=== PATIENT | male | born 1995 | race Two or more races ===

== ENCOUNTER 2020-07-30 18:23 | Emergency (ER) | payer MEDICARE, MEDICAID, SELFPAY ==
--- NOTE | 2020-07-30 18:31 | XR_ITS ---
EXAMINATIONS: WRIST 3 VIEWS, RIGHT AND HAND 3 VIEWS, RIGHT CLINICAL INFORMATION: Pain. Punched wall. COMPARISON: None. TECHNIQUE: AP, lateral, oblique views of the right wrist are provided. AP, lateral, oblique views of the right hand were obtained. FINDINGS: Best identified on the lateral view, there is a curvilinear focus of ossification with overlying mild soft tissue swelling. There is also suspicion of hazy ossification between the bases of the third and fourth metacarpal bases on the oblique view. XR/XR hand wrist RT IMPRESSION: Curvilinear focus of ossification with mild overlying soft tissue swelling likely goodwill representative of a minimally displaced fracture to the base of the fourth, or less likely, third, metacarpal.
[2020-07-30 18:33] VITALS: BP 139/71; BP 150/85; PULSE 120; PULSE 77; RESP 16; TEMP 37.4; O2SAT 97; O2SAT 98; BMI 22.6
[2020-07-30] MEDS: oxyCODONE HCl Immed Release 5 MG TABLET PO (18:56)
--- NOTE | 2020-07-30 19:22 | ED_ITS ---
HPI - Extremity Problem General Chief complaint: Extremity Injury, Upper Stated complaint: R HAND DEFORMITY S/P PUNCHING A WALL Time Seen by Provider: 07/30/20 18:31 Source: patient Mode of arrival: EMS Limitations: no limitations History of Present Illness HPI Narrative: patient presents to the ED for right hand pain. Patient was angry and he punched the wall. Patient denies any other trauma or complaints. MD Complaint: extremity pain Related Data Previous Rx's Medication Instructions Recorded oxycodone-acetaminophen [Percocet] 1 tab PO TID PRN #9 tab 07/30/20 Allergies Allergy/AdvReac Type Severity Reaction Status Date / Time cefaclor [From CECLOR] Allergy Unknown RASH Verified 07/30/20 18:49 penicillin Allergy Unknown Unknown Uncoded 07/30/20 18:49 Review of Systems Review of Systems: Yes all other systems are reviewed and are negative Constitutional: Constitutional: Reports as per HPI, Reports no additional constitutional complaints, Denies anorexia, Denies body ache(s), Denies chills, Denies headache(s) and Denies increased appetite Eyes: Eyes: Reports as per HPI and Reports no additional eye complaints ENT: Reports system reviewed and no additional complaints, except as documented, Reports as per HPI and Denies headache(s) Cardiovascular: Cardiovascular: Reports as per HPI and Reports no additional cardiovascular complaints Respiratory: Respiratory: Reports as per HPI and Reports no additional respiratory complaints Gastrointestinal: Gastrointestinal: Reports as per HPI and Reports no additional gastrointestinal complaints Genitourinary: Genitourinary: Reports no additional male genitourinary complaints and Reports as per HPI Musculoskeletal: Musculoskeletal: Reports no additional musculoskeletal complaints and Reports as per HPI Comments: Right hand pain Neurologic: Reports system reviewed and no additional complaints, except as documented, Reports as per HPI and Denies headache(s) Psychiatric: Psychiatric: Reports as per HPI [facility] Past Medical History Medical History (Updated 07/30/20 @ 19:31 by STEVEN Muñoz) Schizophrenia Social History Social History Smoking Status: Never smoker Use of substances other than those prescribed or required for medical reasons: No Advance Directives: No Advance Directives Information Provided: No Physical Exam Vital Signs: Vital Signs: Vital Signs Temp Pulse Resp BP Pulse Ox 07/30/20 18:33 99.4 F 77 16 139/71 97 Body Mass Index 22.6 Const: General: cooperative, healthy appearing, comfortable, no acute distress, well developed, alert and awake Orientation/consciousness: patient oriented x3 HENMT: Head: Yes normal to inspection, Yes No palpable skull fracture present, Yes atraumatic, No abrasion, No Garcia's sign, No contusion, No hematoma, No laceration, No occipital foramen tenderness, No palpable skull fracture, No raccoon eyes, No scalp lesion, No scalp tenderness, No Temporal artery tenderness present and No periorbital ecchymosis Eyes: General: appearance normal, both eyes and all related structures Visual Caballero: normal visual caballero by confrontation Neck: Neck: Yes normal visual inspection, Yes full ROM, Yes no lymphadenopathy, Yes no meningeal signs and No tender Chest: Chest palpation & inspection: normal inspection of the chest, normal palpation of entire chest wall and no localized rib tenderness Resp: Effort & Inspection: normal respiratory effort and able to speak in complete sentences Cardio: Jugular venous distension: no JVD Heart sounds: S1 normal heart sound present and S2 normal heart sound present GI: Inspection: Yes normal to inspection and No abdominal wall ecchymosis Palpation (GI): Soft to palpation, not firm, nontender, no guarding and not rigid Percussion: Yes normal to percussion : General: No CVA tenderness and Yes no CVA tenderness Back/Spine/Pelvis: Back: no CVA tenderness, No CVA tenderness and No back tenderness Skin: General skin exam: no rashes or lesions noted Neuro: General: patient oriented x3, gait normal, no meningeal signs and CN's II-XI intact bilaterally Cranial nerves: Yes CN's II-XII intact bilaterally Extrem: Other: right hand positive for swelling on dorsal aspect with slight deformity near 4th metacarpal. Capillary refills intact of all fingers. Radial pulses intact. Left upper extremity is normal. Lower extremities negative for any trauma and is normal Psych: Appearance: grossly normal, well kempt and not disheveled Course Course Course Narrative: patient will be given oxycodone for pain. Patient is sent for x-ray of right upper extremity. Reevaluation(s) Reevaluation #1: Right hand x-ray shows minimally displaced 3rd or 4th metacarpal fracture. Patient will be placed a wide ulnar gutter splint. Time: 19:30 Reevaluation #2: Patient placed in splint by nurse. MDM - Extremity (Nontraumatic) MDM Narrative Medical decision making narrative: hand metacarpal fracture. Discharge Plan Discharge Clinical Impression: Fracture of hand Patient Disposition: Home, Self-Care Instructions: Hand Fracture (ED), Boxer Fracture (ED) Additional Instructions: return to ED for worsening pain, increased swelling, bluish discoloration of fingers, numbness /tingling, chest pain, redness, shortness of breath, or any other concerning symptoms. Prescriptions: New oxycodone-acetaminophen [Percocet] 5-325 mg tablet 1 tab PO TID PRN (Reason: pain) Qty: 9 RF: 0 Referrals: Sujatha Napier MD [Physician] - 2 days ( right 4th metacarpal fracture.) Interventions: ED Discharge Assessment Last Done: 07/30/20 20:21 Print Language: Guyanese
== END 2020-07-30 21:05 | disposition home or self-care (01) ==
PROVIDERS: Emergency Provider Emergency Medicine
DX: S62.302A Unspecified fracture of third metacarpal bone, right hand, initial encounter for closed fracture (principal); S62.304A Unspecified fracture of fourth metacarpal bone, right hand, initial encounter for closed fracture; M79.641 Pain in right hand; Y29.XXXA Contact with blunt object, undetermined intent, initial encounter; Y93.9 Activity, unspecified; Y92.9 Unspecified place or not applicable; Y99.9 Unspecified external cause status
CPT/HCPCS: 29125; 73110; 73130; 99283

== ENCOUNTER 2020-07-31 05:59 | Emergency (ER) | payer MEDICARE, MEDICAID, SELFPAY ==
[2020-07-31 06:07] VITALS: BP 140/72; PULSE 62; RESP 18; TEMP 36.7; O2SAT 99; BMI 22.5
--- NOTE | 2020-07-31 06:52 | ED.UPPEXIN ---
HPI - Extremity Injury (Upper) General Chief Complaint: General Medical Stated Complaint: Arm pain Time Seen by Provider: 07/31/20 06:33 Source: patient and old records reviewed Mode of arrival: ambulatory Limitations: no limitations History of Present Illness HPI narrative: This is a 25-year-old male who presents with persistent right hand pain and self endorses that he did not crop picker his pain medication from the pharmacy yesterday due to unclear obstacle. He denies any numbness or tingling into the fingers and states he has not re-injured the hand in any way. Related Data Previous Rx's Medication Instructions Recorded oxycodone-acetaminophen [Percocet] 1 tab PO TID PRN #9 tab 07/30/20 Allergies Allergy/AdvReac Type Severity Reaction Status Date / Time cefaclor [From CECLOR] Allergy Unknown RASH Verified 07/31/20 06:08 penicillin Allergy Unknown Unknown Uncoded 07/31/20 06:07 Review of Systems Review of Systems: Pertinent positives and negatives as stated in HPI 10 point review of systems is otherwise negative. [facility] Past Medical History Source: nursing notes reviewed Medical History Schizophrenia Social History Social History Smoking Status: Never smoker Advance Directives: No Advance Directives Information Provided: No Physical Exam Vital Signs: Vital Signs: Vital Signs Temp Pulse Resp Pulse Ox 07/31/20 06:07 98.0 F 62 18 99 Body Mass Index 22.5 VITAL SIGNS: Reviewed. GENERAL: Well developed, well nourished, in no acute distress. HEAD: Normocephalic/atraumatic, EYES: PERRLA, EOMI intact without pain, no nystagmus/pallor/icterus noted EARS: Ext canals without abnormality, TMs non-bulging and non-erythematous NOSE: Nares patent bilateral OROPHARYNX: no oral lesions noted, posterior pharynx clear and non-erythematous without noted tonsillar enlargement/erythema/exudates NECK: Supple, no adenopathy LUNGS: Normal breath sounds. No adventitious sounds or accessory muscle use. SpO2<99> CARDIOVASCULAR: Regular rate and rhythm without noted murmurs, no JVD or lower extremity edema. ABDOMEN: Soft, non-tender, non-distended with bowel sounds. No rigidity. No guarding. No palpable masses or hernias noted MUSCULOSKELETAL: No tenderness, deformities, or effusions noted on gross inspection. EXTREMITIES: No cyanosis, clubbing or edema; RIGHT HAND: Splint remains in good placement, capillary refill is less than 3 seconds, fingers are warm, patient able to wiggle all fingers on right hand. SKIN: Inspection of the skin reveals no rashes, ulcerations, jaundice, pallor, or petechiae. NEUROLOGIC: Alert and oriented x 4. Strength and sensation to light touch were grossly intact x 4. Course Course Course Narrative: This is a 25-year-old male with history and clinical presentation consistent with boxer's fracture and inadequate pain control due to inability to access pain medication prescribed. Patient was reviewed provided with combination analgesics here in the emergency department and then discharged in stable condition with instructions to pick his prescription up from the pharmacy and call the orthopedic office today to set up a follow-up appointment for his fracture. He was provided with the contact information for the orthopedic office. Discharge Plan Discharge Clinical Impression: Pain Patient Disposition: Home, Self-Care Instructions: Boxer Fracture (ED) Additional Instructions: You have been provided with contact information for the orthopedic office and you should call them this morning to set up an appointment for further evaluation of your hand fracture. Please go to the pharmacy and crop picker your pain medication prescription. The patient and/or family acknowledge understanding of results (as applicable), diagnosis, treatment plan, need for follow up, and symptoms that should prompt a return to the emergency room. Prescriptions: No Action oxycodone-acetaminophen [Percocet] 5-325 mg tablet 1 tab PO TID PRN (Reason: pain) Qty: 9 RF: 0 Referrals: Physician,Unknown [Primary Care Provider] - 2 days ( Hand fracture)
[2020-07-31] MEDS: Acetaminophen 325 MG TABLET 975 MG PO (06:55)
[2020-07-31] MEDS: Ketorolac Tromethamine 15 MG/ML VIAL IM (06:55)
--- NOTE | 2020-07-31 07:00 | PC.NURSE ---
received report from kelechi abbasi
== END 2020-07-31 07:07 | disposition home or self-care (01) ==
PROVIDERS: Emergency Provider Student in an Organized Health Care Education/Training Program
DX: M79.601 Pain in right arm (principal); R20.0 Anesthesia of skin
CPT/HCPCS: 96372; 99283; 99284; J1885

== ENCOUNTER 2020-08-05 11:01 | Emergency (ER) | payer MEDICARE, MEDICAID, SELFPAY ==
--- NOTE | 2020-08-05 11:08 | ED.EXTPRO ---
HPI - Extremity Problem General Stated complaint: R HAND PAIN, SEEN LAST WEEK,WANTS RECHECK Time Seen by Provider: 08/05/20 11:07 Source: patient, EMS and old records reviewed Mode of arrival: EMS Limitations: no limitations Related Data Previous Rx's Medication Instructions Recorded oxycodone-acetaminophen [Percocet] 1 tab PO TID PRN #9 tab 07/30/20 Allergies Allergy/AdvReac Type Severity Reaction Status Date / Time cefaclor [From CECLOR] Allergy Unknown RASH Verified 07/31/20 06:08 penicillin Allergy Unknown Unknown Uncoded 07/31/20 06:07 [facility] Past Medical History Medical History Schizophrenia Social History Social History Smoking Status: Never smoker Discharge Plan Discharge Prescriptions: No Action oxycodone-acetaminophen [Percocet] 5-325 mg tablet 1 tab PO TID PRN (Reason: pain) Qty: 9 RF: 0
[2020-08-05 11:14] VITALS: BP 119/61; PULSE 62; RESP 16; TEMP 37.1; O2SAT 98; BMI 21.7
--- NOTE | 2020-08-05 11:21 | ED.EXTPRO ---
HPI - Extremity Problem General Chief complaint: Extremity Injury, Upper Stated complaint: R HAND PAIN, SEEN LAST WEEK,WANTS RECHECK Time Seen by Provider: 08/05/20 11:07 Source: EMS Mode of arrival: EMS Limitations: no limitations History of Present Illness HPI Narrative: 25-year-old male from shelter who apparently suffered injury to his right hand from punching a wall on the 30 of July (6 days ago) he was seen here for the hand injury subsequently diagnosed with minimally displaced fracture of the 3rd/ 4th metacarpal placed in a ulnar gutter splint which fell off. He re-presented today for recent splinting. He denies any new injury. No rash, open skin area. MD Complaint: extremity pain Location: right Related Data Previous Rx's Medication Instructions Recorded oxycodone-acetaminophen [Percocet] 1 tab PO TID PRN #9 tab 07/30/20 Allergies Allergy/AdvReac Type Severity Reaction Status Date / Time cefaclor [From CECLOR] Allergy Unknown RASH Verified 08/05/20 11:19 penicillin Allergy Unknown Unknown Uncoded 08/05/20 11:19 Review of Systems Review of Systems: Constitutional: No Weight loss, No Fever, No Chills, No Night Sweats, No Fatigue, No Malaise ENT/Mouth: No Hearing loss, No Ear Triston Cardiovascular: No Chest Pain, No SOB Respiratory: No Cough, No Sputum Musculoskeletal: No joint pain, No Myalgias, No Joint Swelling Skin: No Skin Lesions, No rash Neuro: No Weakness, No Numbness Psych: No Anxiety/Panic Heme/Lymph: No Bruising, No Bleeding,No Lymphadenopathy Endocrine: No Polyuria, No Polydipsia, No Temperature Intolerance Yes all other systems are reviewed and are negative [facility] Past Medical History Attestation statement: The following information was validated with the patient. Medical History Schizophrenia Social History Social History Smoking Status: Never smoker Physical Exam Vital Signs: Vital Signs: Last Vital Signs Temp 98.7 F 08/05/20 11:14 Pulse 62 08/05/20 11:14 Resp 16 08/05/20 11:14 BP 119/61 08/05/20 11:14 Pulse Ox 98 08/05/20 11:14 Body Mass Index 21.7 Reviewed Const: General: cooperative and healthy appearing; No acute distress or intoxicated appearing Nutritional Appearance: average body habitus Orientation/consciousness: patient oriented x3 HENMT: Head: Yes normal to inspection Ears: hearing grossly normal bilaterally Eyes: General: appearance normal, both eyes and all related structures Visual Masterson: normal visual masterson by confrontation Chest: Chest palpation & inspection: normal inspection of the chest Resp: Effort & Inspection: normal respiratory effort Skin: General skin exam: no rashes or lesions noted Neuro: General: patient oriented x3 Extrem: Other: Right upper extremity slight ecchymosis over the dorsum of the right hand just proximal to the 3rd 4th webbing. No obvious deformity, erythema or open area. Neurovascularly intact. Full range of motion the digits. Cap refill less than 2 seconds. General: Yes normal to inspection Course Course Course Narrative: Placed in ulnar gutter splint advised for orthopedic follow-up as previously discussed. Discharge Plan Discharge Clinical Impression: Fracture of hand, Knowledge deficit on cast home care, Encounter for cast care Patient Disposition: Home, Self-Care Instructions: Hand Fracture (ED), Splint Care (ED) Additional Instructions: Please leave the splint on and follow up with Orthopedic Team this upcoming week call for appointment Ice Elevate Tylenol or ibuprofen for pain or discomfort Return if any concerns or worsening symptoms Thank you Prescriptions: No Action oxycodone-acetaminophen [Percocet] 5-325 mg tablet 1 tab PO TID PRN (Reason: pain) Qty: 9 RF: 0 Referrals: James Appiah MD [Physician] - 5 days
== END 2020-08-05 11:58 | disposition home or self-care (01) ==
LOC: HO.ED 11:41
PROVIDERS: Emergency Provider Emergency Medicine
DX: S62.91XA Unspecified fracture of right hand, initial encounter for closed fracture (principal); M79.641 Pain in right hand; X79.XXXA Intentional self-harm by blunt object, initial encounter; Y93.9 Activity, unspecified; Y92.9 Unspecified place or not applicable; Y99.9 Unspecified external cause status; Z79.899 Other long term (current) drug therapy
CPT/HCPCS: 29125; 99283

== ENCOUNTER 2020-08-12 09:12 | Emergency (ER) | payer MEDICARE, MEDICAID, SELFPAY ==
[2020-08-12 09:20] VITALS: BP 117/67; PULSE 74; RESP 16; TEMP 36.1; O2SAT 100; BMI 21.9
--- NOTE | 2020-08-12 09:49 | XR_ITS ---
EXAMINATION: XR HAND, RIGHT CLINICAL INFORMATION: Recent fracture, no trauma. COMPARISON: 07/30/2020 TECHNIQUE: PA, lateral, and oblique views of the right hand. FINDINGS: Mildly displaced fracture of the base third or fourth metacarpal unchanged. No new fractures. No dislocation. XR/XR hand RT min 3V IMPRESSION: Exam essentially unchanged, mildly displaced chip fractures at the base of the third or fourth metacarpals.
--- NOTE | 2020-08-12 09:50 | ED.GENADULT ---
HPI - General Adult General Chief complaint: General Medical Stated complaint: R HAND PAIN,SPLINT FELL OFF PREVIOUS INJURY Time Seen by Provider: 08/12/20 09:26 Source: patient and EMS Mode of arrival: EMS Limitations: no limitations History of Present Illness HPI narrative: 25 y/o male with recent 4th metacarpal fracture on 07/30 presenting with right hand pain after his splint fell off 3 times. He states [facility] [place] and they were supposed to make him an Orthopedics appointment for last week because he thinkgs he needs surgery, however there was an error in scheduling and he never had the appointment. He states the splint kept falling off and the pain in his hand is worsening. He almost fell twice but caught himself with his hand. He thinks the fracture might be worse. He denies numbness, tingling. complaint: right hand pain Onset (ago): day(s) (13) Location: upper extremity Radiation: non-radiation Severity: moderate Severity scale (1-10): 7 Quality: aching Pain Consistency: intermittent Relieving factors: immobilization and medication Exacerbating factors: movement Associated symptoms: denies other symptoms Treatments prior to arrival: none Related Data Previous Rx's Medication Instructions Recorded oxycodone-acetaminophen [Percocet] 1 tab PO TID PRN #9 tab 07/30/20 hydrocodone-acetaminophen [[place]] 1 tab PO Q8H PRN #8 tab 08/12/20 ibuprofen 600 mg PO Q8H PRN #20 tab 08/12/20 Allergies Allergy/AdvReac Type Severity Reaction Status Date / Time cefaclor [From CECLOR] Allergy Unknown RASH Verified 08/05/20 11:19 penicillin Allergy Unknown Unknown Uncoded 08/05/20 11:19 Review of Systems Review of Systems: Constitutional: No Fever, No Chills Cardiovascular: No Chest Pain, No SOB Respiratory: No Cough, No Sputum Musculoskeletal: + joint pain, No Myalgias Skin: No Skin Lesions, No rash Neuro: No Weakness, No Numbness Psych: No Anxiety/Panic, No Depression Heme/Lymph: + Bruising, No Lymphadenopathy PMFSH Past Medical History Attestation statement: The following information was validated with the patient. Medical History Schizophrenia Social History Social History Smoking Status: Never smoker Advance Directives: No Advance Directives Information Provided: Yes Physical Exam Vital Signs: Vital Signs: Last Vital Signs Temp 97 F 08/12/20 09:20 Pulse 74 08/12/20 09:20 Resp 16 08/12/20 09:20 BP 117/67 08/12/20 09:20 Pulse Ox 100 08/12/20 09:20 Body Mass Index 21.9 Appearance: Alert. No acute distress. HEENT: normal inspection Respiratory: No respiratory distress. Skin: Skin warm and dry. Normal skin color. Normal skin turgor. No rashes. Extremities: right hand with tenderness and swelling over 4th metacarpal on volar side. full ROM of wrist and fingers with mild digital sales planner weakness. bruising on the hand and forearm Neuro: Oriented X 3. No motor deficit. No sensory deficit. Course Course Course Narrative: 25 y/o with recent hand fracture presenting with hand pain, mild trauma. concern for further displacement of fracture given he has not been wearing his splint. Will get new X-rays and resplint. Reevaluation(s) Reevaluation #1: XR is unchanged. New splint applied with adequdate positioning. NV intact after placement. Patient counseled to wear his splint until followed up with Ortho. He agrees. Stable for discharge. Critical Care Time Critical Care Time Critical Care Time: No Discharge Plan Discharge Clinical Impression: Fracture of metacarpal Qualifiers: Encounter type: subsequent encounter Metacarpal bone: fourth Fracture type: closed Metacarpal location: base Fracture alignment: displaced Laterality: right Fracture healing: with routine healing Qualified Code(s): S62.314D - Displaced fracture of base of fourth metacarpal bone, right hand, subsequent encounter for fracture with routine healing Patient Disposition: Home, Self-Care Instructions: Hand Fracture (ED) Additional Instructions: Your x-ray today was unchanged. Continue to wear the new splint that was applied to your hand until you are seen by Orthopedics. Do not take it off. Do not get it wet. Call the Orthopedic doctor tomorrow morning to arrange an appointment. Elevate your hand to help with discomfort. Limit use of your right hand. If you have new or worsening pain, numbness, tingling or loss of function come back to the ER for further evaluation. Prescriptions: New hydrocodone-acetaminophen [[place]] 5-325 mg tablet 1 tab PO Q8H PRN (Reason: pain) Qty: 8 RF: 0 ibuprofen 600 mg tablet 600 mg PO Q8H PRN (Reason: pain) Qty: 20 RF: 0 No Action oxycodone-acetaminophen [Percocet] 5-325 mg tablet 1 tab PO TID PRN (Reason: pain) Qty: 9 RF: 0 Referrals: James Appiah MD [Physician] - 1 day Interventions: ED Discharge Assessment Last Done: 08/12/20 10:49
== END 2020-08-12 11:07 | disposition home or self-care (01) ==
PROVIDERS: Emergency Provider Emergency Medicine
DX: S62.314A Displaced fracture of base of fourth metacarpal bone, right hand, initial encounter for closed fracture (principal); M79.641 Pain in right hand; W18.30XA Fall on same level, unspecified, initial encounter; Y93.9 Activity, unspecified; Y92.9 Unspecified place or not applicable; Y99.9 Unspecified external cause status
CPT/HCPCS: 29125; 73130; 99283

== ENCOUNTER 2020-08-13 11:23 | Outpatient (REF) | payer MEDICARE, MEDICAID, SELFPAY ==
--- NOTE | 2020-08-13 11:24 | XR_ITS ---
EXAMINATION: XR HAND, RIGHT CLINICAL INFORMATION: Pain in right hand COMPARISON: 08/12/2020 and 07/30/2020 TECHNIQUE: PA, lateral, and oblique views of the right hand. FINDINGS: Fragmented appearance at the base of the third and fourth metacarpals is again noted on the oblique view. Alignment is unchanged from prior, with possible dorsal subluxation of the metacarpal bases in relation to the carpal bones. Remaining joint spaces are maintained. XR/XR hand RT min 3V IMPRESSION: Fragmented appearance at the base of the third/fourth metacarpals again noted with possible dorsal subluxation of the metacarpal bases in relation to the carpal bones. Appearance is unchanged from yesterday's study.
== END 2020-08-13 11:24 | disposition home or self-care (01) ==
LOC: HO.HOSX 11:23
PROVIDERS: Visit Provider Orthopaedic Surgery
DX: S63.054A Dislocation of other carpometacarpal joint of right hand, initial encounter (principal); S62.141A Displaced fracture of body of hamate [unciform] bone, right wrist, initial encounter for closed fracture; S62.314A Displaced fracture of base of fourth metacarpal bone, right hand, initial encounter for closed fracture; F20.9 Schizophrenia, unspecified; W22.8XXA Striking against or struck by other objects, initial encounter; Y93.9 Activity, unspecified; Y92.9 Unspecified place or not applicable; Y99.9 Unspecified external cause status
CPT/HCPCS: 73130; 99202

== ENCOUNTER 2020-08-14 11:40 | Day surgery (SDC) | payer MEDICARE, MEDICAID, SELFPAY ==
--- NOTE | 2020-08-14 11:47 | P.CONAN_ITS ---
[facility] Past Medical History Medical History (Updated 08/14/20 @ 13:03 by Maite Plaza RN) Schizophrenia Social History Social History Smoking Status: Never smoker Use of substances other than those prescribed or required for medical reasons: Yes Substance Use Frequency: Daily Advance Directives: No Advance Directives Information Provided: No Current occupation: [employer] Meds Allergies Allergy/AdvReac Type Severity Reaction Status Date / Time cefaclor [From CECLOR] Allergy Unknown RASH Verified 08/14/20 11:58 penicillin Allergy Unknown Unknown Uncoded 08/05/20 11:19 Exam Exam Date and Time: August 14, 2020 1147 Airway Mallampati Class: III TM Dist: >3cm Neck ROM: Full Loose/Missing/Broken Teeth: No Heart: rrr Lungs: nl Other: ao Assessment and Plan Assessment Anesthesia Assessment: Anesthesia Plan Discussed and Chart Reviewed Final Anesthetic Review NPO: Yes ASA Class: I Final Preanesthetic Review: No Changes in Pt Med Stat, Meds/Allgs Chart Reviewed, Consent Obtained/Reviewed and Anes Risks/Benef Reviewed Patient Risk: Low Procedure Risk: Low Anesthetic Plan Anesthetic Plan: GA and Regional Block Disposition: Standard PACU
[2020-08-14 11:58] VITALS: BP 121/68; PULSE 69; RESP 16; TEMP 37.3; O2SAT 99; BMI 23.3
[2020-08-14] MEDS: Lactated Ringers 1,000 ML 50 ML IVCONT (12:25)
[2020-08-14] MEDS: ceFAZolin Sodium/Dextrose,Iso 2 GM/50 ML PIGGYBACK IV (13:08)
[2020-08-14] MEDS: ondansetron HCL 4 MG/2 ML VIAL IVPUSH (13:16)
--- NOTE | 2020-08-14 15:24 | W.PM.OPN ---
Operative Note Operative Note Date of Service: 08/14/20 Narrative: Operative Note Narrative: Preop diagnosis: 1. Right 4th CMC fracture dislocation 2. Right 5th CMC fracture dislocation Postop diagnosis: Same Procedure: 1. Right 4th CMC fracture dislocation open reduction internal fixation 2. Left 5th CMC fracture dislocation open reduction internal fixation Surgeon: Sujatha Napier MD Anesthesia: Mac plus regional block Findings: Dorsal dislocations of the 4th and 5th CMC joints of the right hand Implants: 0.062 K-wires x3 Tourniquet time: 73 minutes EBL: 5.0 ml Specimen: None Drains: None Complications: None Disposition: Brought to the recovery room in stable condition Plan: Follow-up in about 10 days for wound check, suture removal and placement in a short-arm cast Anticipate K-wire removal not sooner than 6 weeks postoperatively. Note patient has schizophrenia, and may require close follow-up for pin site wound check, or to assess condition of cast. Patient lives in a correction with a case resolution specialist Indications: The patient is a 25 year old man with schizophrenia who lives in a correction punched a wall approximately 3-4 weeks ago sustaining right 4th and 5th CMC joint dorsal fracture dislocations. He was 1st seen in clinic 2 days ago. . The risks and benefits of operative treatment, including but not limited to risk of damage to blood vessels, nerves, tendons, infection, recurrence, persistent pain or numbness, incomplete resolution of preoperative symptoms, or need for further surgery were discussed with the patient and they wished to proceed with surgery. Procedure: Once consent was obtained patient was brought back to the operating suite and placed in the operating table in a supine position. A regional block was performed by the anesthesia team. Perioperative antibiotics and anesthesia was administered by the anesthesia team. A tourniquet was applied to the proximal aspect of the right upper extremity and the limb was prepped and draped in a standard surgical fashion. A gentle closed reduction was attempted, and the FluoroScan was utilized to facilitate and assess our CMC fracture dislocation reduction and placement of all implants. We were unable to reduce the 4th and 5th CMC joints closed. Thus the decision was made to proceed with open reduction internal fixation. The limb was elevated and exsanguinated with Esmarch bandage and the tourniquet inflated to 250 mm of mercury for a total tourniquet time of 73 minutes. A 3 cm longitudinal incision was made centered over the dorsal aspect of the hand at the interval between the 4th and 5th CMC joints. Incision was made through the skin the subcutaneous tissues using a 15. Blade. Careful dissection was then made down to the level of the 4th and 5th CMC joints using tenotomy iris scissors. The 4th and 5th CMC joints were noted to be dorsally dislocated and initially not particularly mobile. The capsuloligamentous tissue about the dorsal aspect of the 4th and 5th CMC joint was opened 1st transversely and then longitudinally between the 3rd and 4th metacarpal bases. I was then able to remove a small amount of scar tissue and organized hematoma from the 4th CMC joint, and better mobilize the bases of the 4th and 5th metacarpals.. I was then able to perform an open reduction of the 4th and 5th CMC joints. I 1st attempted to secure reduction with a longitudinal K-wire through the 4th metacarpal shaft, but found this to be unsatisfactory and remove the K-wire. I then placed a K-wire obliquely through the ulnar proximal aspect of the 5th metacarpal. This was passed across the base of the 4th metacarpal and into the hamate and the capitate. A 2nd 0.062 K-wire was passed transversely through the base of the 5th metacarpal, the 4th metacarpal and into the base of the 3rd metacarpal. I then added a 3rd 0.062 K-wire obliquely and just distal to the 1st 0.062 K-wire. It passed through the proximal aspect of the 5th metacarpal, 4th metacarpal 3rd metacarpal and into the trapezoid. I was satisfied with our construct both on intraoperative exam, and through fluoroscopic images. Final fluoroscopic images were then obtained. The pins were bent and cut short had pin caps applied. This point the wound was irrigated with normal saline. Dorsal capsuloligamentous tissue was reapproximated using some 4-0 Vicryl suture material. At this point the tourniquet was deflated and hemostasis obtained with a brief period of local pressure and bipolar electrocautery. The wound was again copiously irrigated with normal saline. The skin edges were reapproximated with 5-0 nylon suture. The wound was infiltrated with some 1% lidocaine with epinephrine for postop pain control and a sterile dressing and a volar splint was applied. A splint was reinforced some 1 and some tape and 2 in [place] to discourage removal of the splint by our patient. The patient appears to have tolerated the procedure well and with no complications. All digits were well vascularized conclusion of the case.
[2020-08-14 15:25] VITALS: BP 135/81; PULSE 86; RESP 16; TEMP 36.6; O2SAT 96
[2020-08-14 15:30] VITALS: BP 151/76; PULSE 71; RESP 16; O2SAT 96
[2020-08-14 15:35] VITALS: BP 133/92; PULSE 65; RESP 16; O2SAT 94
[2020-08-14 15:40] VITALS: BP 156/95; PULSE 69; RESP 16; O2SAT 94
--- NOTE | 2020-08-14 15:51 | FL_ITS ---
EXAMINATION: XR FLUOROSCOPY WITH IMAGES CLINICAL INFORMATION: Fracture of the right fourth and fifth metacarpals COMPARISON: None. TECHNIQUE: Fluoroscopy performed by Dr. Venegas. Fluoroscopy time: 251 seconds DAP: [id number] Images: 7 FINDINGS: There is placement of 3 K wires across the third through fifth metacarpal bases and proximal carpal row. FL/FL guidance in OR IMPRESSION: Fluoroscopic guidance for wire fixation at the carpometacarpal articulation. Please refer to operative report for further information.
[2020-08-14 15:55] VITALS: BP 117/66; PULSE 68; RESP 16; TEMP 36.7; O2SAT 96
== END 2020-08-14 16:15 | disposition home or self-care (01) ==
PROVIDERS: Visit Provider Orthopaedic Surgery
PROC: (CPT 26615; principal; 2020-08-14 13:00)
DX: S62.314A Displaced fracture of base of fourth metacarpal bone, right hand, initial encounter for closed fracture (principal); S62.316A Displaced fracture of base of fifth metacarpal bone, right hand, initial encounter for closed fracture; W22.09XA Striking against other stationary object, initial encounter; W22.01XA Walked into wall, initial encounter; Y93.89 Activity, other specified; Y92.099 Unspecified place in other non-institutional residence as the place of occurrence of the external cause; Y99.8 Other external cause status; F20.9 Schizophrenia, unspecified; F12.90 Cannabis use, unspecified, uncomplicated; Z79.899 Other long term (current) drug therapy; Z88.0 Allergy status to penicillin; Z88.8 Allergy status to other drugs, medicaments and biological substances
CPT/HCPCS: 26615 ×2; J0690; J1100; J2250; J2405

== ENCOUNTER 2020-08-19 06:45 | Emergency (ER) | payer MEDICARE, MEDICAID, SELFPAY ==
[2020-08-19 06:50] VITALS: PULSE 67; RESP 16; TEMP 36.6; O2SAT 98; BMI 24.9
--- NOTE | 2020-08-19 07:45 | ED_ITS ---
HPI - Extremity Problem General Chief complaint: Extremity Injury, Upper Stated complaint: SPILLED HOT COFFEE ON CALF Time Seen by Provider: 08/19/20 07:37 Source: patient Mode of arrival: ambulatory Limitations: no limitations History of Present Illness HPI Narrative: This is a 25 years old male with the aid of ORIF procedure in the right few days ago, was placed in a splint, comes today because a drop of coffee on a splint. Complaint: other Onset (ago): hour(s) (4) Pain Consistency: constant Location: right Radiation: none Associated symptoms: denies other symptoms Related Data Previous Rx's Medication Instructions Recorded hydrocodone-acetaminophen [[place]] 1 tab PO Q8H PRN #8 tab 08/12/20 hydrocodone-acetaminophen 1 - 2 tab PO Q6H PRN #30 tab 08/14/20 Allergies Allergy/AdvReac Type Severity Reaction Status Date / Time cefaclor [From CECLOR] Allergy Unknown RASH Verified 08/14/20 11:58 penicillin Allergy Unknown Unknown Uncoded 08/05/20 11:19 Review of Systems Review of Systems: Yes all other systems are reviewed and are negative Cardiovascular: Cardiovascular: Reports no additional cardiovascular complaints Gastrointestinal: Gastrointestinal: Reports no additional gastrointestinal complaints Neurologic: Reports system reviewed and no additional complaints, except as documented PMFSH Past Medical History Attestation statement: The following information was validated with the patient. Medical History Schizophrenia Social History Social History Smoking Status: Never smoker Advance Directives: No Advance Directives Information Provided: Yes Current occupation: [employer] Physical Exam Vital Signs: Vital Signs: Last Vital Signs Temp 98 F 08/19/20 06:50 Pulse 67 08/19/20 06:50 Resp 16 08/19/20 06:50 Pulse Ox 98 08/19/20 06:50 Body Mass Index 24.9 Const: Other: Not acute distress General: cooperative, healthy appearing and comfortable Orientation/consciousness: oriented to person and oriented to place HENMT: Head: Yes normal to inspection Eyes: General: appearance normal, both eyes and all related structures Neck: Neck: Yes normal visual inspection Chest: Chest palpation & inspection: normal inspection of the chest Resp: Effort & Inspection: normal respiratory effort and able to speak in complete sentences Cardio: Rate: regular rate GI: Inspection: Yes normal to inspection Palpation (GI): Soft to palpation, nontender and no guarding Skin: General skin exam: no rashes or lesions noted Neuro: General: oriented to person and oriented to place Extrem: Other: Patient has a short arm a splint in the right forearm a through the hand Course Course Course Narrative: Actually the OCL splinting was fine and no wet, we just just changed the George bandage around the splint Discharge Plan Discharge Clinical Impression: Right hand pain Patient Disposition: Home, Self-Care Additional Instructions: Please follow-up with the orthopedist as scheduled, keep you splint dry, return to the emergency room if any problems Prescriptions: No Action hydrocodone-acetaminophen [[place]] 5-325 mg tablet 1 tab PO Q8H PRN (Reason: pain) Qty: 8 RF: 0 hydrocodone-acetaminophen 5-325 mg tablet 1 - 2 tab PO Q6H PRN (Reason: pain) Qty: 30 RF: 0 Interventions: ED Discharge Assessment Last Done: 08/19/20 07:53 Discharge Date/Time: 08/19/20 07:54
== END 2020-08-19 07:54 | disposition home or self-care (01) ==
PROVIDERS: Emergency Provider Emergency Medicine
DX: M79.641 Pain in right hand (principal); Z79.899 Other long term (current) drug therapy
CPT/HCPCS: 99283

== ENCOUNTER 2020-08-21 12:14 | Emergency (ER) | payer MEDICARE, MEDICAID, SELFPAY ==
[2020-08-21 12:33] VITALS: BP 114/86; PULSE 120; RESP 18; TEMP 36.8; O2SAT 100; BMI 22.8
--- NOTE | 2020-08-21 14:08 | XR_ITS ---
EXAMINATION: XR CHEST CLINICAL INFORMATION: Cough, shortness of breath COMPARISON: Chest radiographs 11/06/2019 TECHNIQUE: 2 views of the chest were obtained. FINDINGS: The lungs are clear. The vascularity is normal. There is no pneumothorax, pleural reaction, infiltrate, or groundglass opacity. The costophrenic sulci are well-defined. The heart is normal in size and the hilar and mediastinal contours are normal. No visible acute bony abnormality. XR/XR chest 2V IMPRESSION: Unremarkable examination.
--- NOTE | 2020-08-21 14:11 | ED_ITS ---
HPI - General Adult General Chief complaint: General Medical Stated complaint: not feeling well, recent surgery Time Seen by Provider: 08/21/20 14:02 Source: patient and EMS Mode of arrival: EMS Limitations: no limitations History of Present Illness HPI narrative: Patient tells me today he noticed a dry cough, nasal congestion and just feeling generally unwell. He denies any fevers, chills or sick contacts. No shortness of breath or chest pain. Onset (ago): day(s) Radiation: non-radiation Severity: mild Relieving factors: none Exacerbating factors: none Associated symptoms: denies other symptoms Treatments prior to arrival: none Related Data Previous Rx's Medication Instructions Recorded hydrocodone-acetaminophen [[place]] 1 tab PO Q8H PRN #8 tab 08/12/20 hydrocodone-acetaminophen 1 - 2 tab PO Q6H PRN #30 tab 08/14/20 Allergies Allergy/AdvReac Type Severity Reaction Status Date / Time cefaclor [From CECLOR] Allergy Unknown RASH Verified 08/14/20 11:58 penicillin Allergy Unknown Unknown Uncoded 08/05/20 11:19 Review of Systems Review of Systems: Yes all other systems are reviewed and are negative Constitutional: Constitutional: Reports no additional constitutional complaints, Denies body ache(s), Denies chills, Denies fever(s), Denies headache(s) and Denies weakness Eyes: Eyes: Reports no additional eye complaints and Denies change in vision ENT: Reports system reviewed and no additional complaints, except as documented, Denies dizziness, Denies headache(s), Reports nasal congestion, Denies nasal discharge and Denies neck pain Cardiovascular: Cardiovascular: Reports no additional cardiovascular complaints, Denies chest pain, Denies leg edema and Reports dyspnea Respiratory: Respiratory: Reports no additional respiratory complaints, Reports cough and Reports dyspnea Gastrointestinal: Gastrointestinal: Reports no additional gastrointestinal complaints, Denies abdominal pain, Denies diarrhea, Denies nausea and Denies vomiting Genitourinary: Genitourinary: Denies urinary incontinence Musculoskeletal: Musculoskeletal: Reports no additional musculoskeletal complaints, Denies back pain, Denies arthralgias, Denies joint swelling, Denies neck pain, Denies numbness and Denies tingling Integumentary/Breasts: Skin/Breast: Reports system reviewed and no additional complaints, except as docu and Denies rash Neurologic: Reports system reviewed and no additional complaints, except as documented, Denies Abnormal speech present, Denies dizziness, Denies headache(s), Denies numbness, Denies tingling and Denies weakness PMFSH Past Medical History Attestation statement: The following information was validated with the patient. Source: old records reviewed and nursing notes reviewed Medical History Schizophrenia Social History Social History Alcohol intake: never Smoking Status: Never smoker Use of substances other than those prescribed or required for medical reasons: Yes Substance Use Type: Marijuana Substance Use Frequency: Daily Advance Directives: No Advance Directives Information Provided: Yes Current occupation: [employer] Physical Exam Vital Signs: Vital Signs: Last Vital Signs Temp 98.3 F 08/21/20 12:33 Pulse 114 H 08/21/20 16:57 Resp 20 08/21/20 16:57 BP 134/87 08/21/20 16:57 Pulse Ox 97 08/21/20 16:57 Body Mass Index 22.8 Const: General: cooperative, healthy appearing, comfortable and no acute distress Orientation/consciousness: patient oriented x3 Limitations: no limitations HENMT: Head: Yes normal to inspection Ears: hearing grossly normal bilaterally General nose exam: Normal external nose present Face and sinus: Yes normal facial exam Mouth: Normal oral and palatal mucosa present Throat: Yes posterior oropharynx normal Eyes: General: appearance normal, both eyes and all related structures Pupils: Equal, round and reactive pupils present Neck: Neck: Yes normal visual inspection Chest: Chest palpation & inspection: normal inspection of the chest Resp: Effort & Inspection: normal respiratory effort Auscultation: clear to auscultation bilaterally Cardio: Rate: regular rate Rhythm: regular rhythm Peripheral pulses: Peripheral pulses 2+ throughout GI: Inspection: Yes normal to inspection Palpation (GI): Soft to palpation and nontender Auscultation: normal bowel sounds Back/Spine/Pelvis: Thoracic/Lumbar Spine: thoracic and lumbar spine normal to inspection Skin: General skin exam: no rashes or lesions noted Neuro: General: patient oriented x3, no focal motor deficits and normal sensation to monofilament Cranial nerves: Yes Equal, round and reactive pupils present Cognition (Neuro): normal cognition Speech: No Abnormal speech present Gait exam (Neuro): Normal gait present Motor exam (neuro): 5/5 motor strength present throughout Extrem: General: Yes normal to inspection Course Course Course Narrative: Will check imaging, respiratory panel. 1699- Imaging unremarkable. Respiratory panel pending will not return tomorrow. Patient is well appearing stable vital signs, afebrile. Reviewed worrisome signs and symptoms when to return to the emergency department. Comfortable discharge home. Medical Decision Making Imaging Data Chest x-ray: Attestation: I personally reviewed and interpreted this imaging study as follows: Radiologist's impression: EXAMINATION: XR CHEST CLINICAL INFORMATION: Cough, shortness of breath COMPARISON: Chest radiographs 11/06/2019 TECHNIQUE: 2 views of the chest were obtained. FINDINGS: The lungs are clear. The vascularity is normal. There is no pneumothorax, pleural reaction, infiltrate, or groundglass opacity. The costophrenic sulci are well-defined. The heart is normal in size and the hilar and mediastinal contours are normal. No visible acute bony abnormality. XR/XR chest 2V IMPRESSION: Unremarkable examination. Discharge Plan Discharge Clinical Impression: Viral syndrome Patient Disposition: Home, Self-Care Instructions: Viral Syndrome (ED) Additional Instructions: We have tested you today for COVID 19. Test results take 1-2 days and we will c all you with the results negative or positive. Take tylenol or motrin if able as needed for pain or fever. Stay well hydrated with fluids like water, gatorade and/or powerade. Wash hands at home. If living with others try to self isolate if possible. If unable wear a mask around others in your home and wash hands frequently. If COVID test is positive you will need to self isolate for a total of 14 days from when your symptoms started. You may return to work sooner if testing is negative and all symptoms resolved >72 hours. You should return to the emergency department for severe shortness of breath, chest pain or fever which does not respond to both tylenol and motrin at home. Prescriptions: No Action hydrocodone-acetaminophen [[place]] 5-325 mg tablet 1 tab PO Q8H PRN (Reason: pain) Qty: 8 RF: 0 hydrocodone-acetaminophen 5-325 mg tablet 1 - 2 tab PO Q6H PRN (Reason: pain) Qty: 30 RF: 0 Referrals: Physician,Unknown [Primary Care Provider] - 2 days Interventions: ED Discharge Assessment Last Done: 08/21/20 17:10 Discharge Date/Time: 08/21/20 17:11
[2020-08-21 14:22] VITALS: PULSE 88; RESP 16
[2020-08-21 15:01] LABS: Adenovirus PCR Not Detected (Not Detect.); Bordetella parapertussis PCR Not Detected (Not Detect.); Bordetella pertussis PCR Not Detected (Not Detect.); Chlamydia pneumoniae PCR Not Detected (Not Detect.); Coronavirus 229E PCR Not Detected (Not Detect.); Coronavirus HKU1 PCR Not Detected (Not Detect.); Coronavirus NL63 PCR Not Detected (Not Detect.); Coronavirus OC43 PCR Not Detected (Not Detect.); Human metapneumovirus PCR Not Detected (Not Detect.); Influenza A PCR Not Detected (Not Detect.); Influenza B PCR Not Detected (Not Detect.); Mycoplasma pneumoniae PCR Not Detected (Not Detect.); Parainfluenza 1 PCR Not Detected (Not Detect.); Parainfluenza 2 PCR Not Detected (Not Detect.); Parainfluenza 3 PCR Not Detected (Not Detect.); Parainfluenza 4 PCR Not Detected (Not Detect.); RSV PCR Not Detected (Not Detect.); SARS-CoV-2 PCR Not Detected (Not Detect.)
[2020-08-21 16:57] VITALS: BP 134/87; PULSE 114; RESP 20; O2SAT 97
[2020-08-22 08:30] LABS: Rhino/Enterovirus PCR Detected (Not Detect.)
== END 2020-08-21 17:11 | disposition home or self-care (01) ==
PROVIDERS: Nurse Practitioner Family; Emergency Provider Emergency Medicine Emergency Medical Services
DX: B34.9 Viral infection, unspecified (principal); R05 Cough; F12.90 Cannabis use, unspecified, uncomplicated; Z20.828 Contact with and (suspected) exposure to other viral communicable diseases
CPT/HCPCS: 71046; 87633; 99283; 99284

== ENCOUNTER 2020-08-24 17:38 | Emergency (ER) | payer MEDICARE, MEDICAID, SELFPAY ==
[2020-08-24 17:50] VITALS: BP 144/89; PULSE 88; RESP 16; TEMP 37.2; O2SAT 100; BMI 22.6
--- NOTE | 2020-08-24 17:55 | PC.NURSE ---
PT HAD KNIFE FALL OUT OF POCKET WHILE BEING TRANSPORTED BY EMT TOOK BY SECURITY. PT DEMANBDING PAIN MEDICATION.
--- NOTE | 2020-08-24 18:02 | XR_ITS ---
EXAMINATION: XR HAND, RIGHT CLINICAL INFORMATION: Injury/recent surgery COMPARISON: Right hand radiographs 08/13/2020 TECHNIQUE: Four views of the right hand. FINDINGS: Large amount of details obscured by the plaster cast/splint. 3 metallic pins are present extending through the carpal bones and bases of the metacarpals. Fractures are not as well-seen as on prior studies but no new fracture is identified. XR/XR hand RT min 3V IMPRESSION: Postsurgical changes. Plaster splint/cast obscures detail. No definite new fractures seen.
[2020-08-24] MEDS: Acetaminophen 325 MG TABLET 650 MG PO (18:08)
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
--- NOTE | 2020-08-24 18:54 | PC.NURSE ---
PT CAME OUT OF ROOM AND INFORMED NURSE THE TYLENOL WORK FOR PAIN AND HE WANTED TO GO HOME. PT WAS INFORM THAT SHE WILL LET THE PROVIDER KNOW.
== END 2020-08-24 18:55 | disposition home or self-care (01) ==
PROVIDERS: Emergency Provider Emergency Medicine
DX: M79.641 Pain in right hand (principal); Z79.899 Other long term (current) drug therapy; F12.90 Cannabis use, unspecified, uncomplicated
CPT/HCPCS: 73130; 99283

== ENCOUNTER 2020-08-31 21:52 | Emergency (ER) | payer MEDICARE, MEDICAID, SELFPAY ==
[2020-08-31 22:00] VITALS: BP 125/70; PULSE 96; RESP 18; TEMP 37.3; O2SAT 99; BMI 22.6
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
[2020-08-31] MEDS: Acetaminophen 325 MG TABLET 650 MG PO (23:00)
[2020-08-31 23:27] LABS: Amphetamine Screen Urine Not Detected (Not Detect); Barbiturates, Urine Not Detected (Not Detect); Benzodiazepines Screen Urine Not Detected (Not Detect); Cannabinoid Screen Urine POSITIVE (Not Detect); Cocaine Screen Urine Not Detected (Not Detect); Opiate Screen Urine Not Detected (Not Detect); Phencyclidine Screen Urine Not Detected (Not Detect)
[2020-08-31 23:28] LABS: Glucose Urine UA NEG (NEG); Leukocyte Esterase Urine NEG (NEG); Nitrite Urine NEG (NEG); Urine Blood NEG (NEG); Urine Ketones NEG (NEG); Urine Protein NEG (NEG-TRACE)
[2020-08-31 23:33] LABS: Appearance Urine CLEAR; Color Urine YELLOW
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
[2020-09-01] VITALS (8 sets, daily range): BP systolic 107–132; BP diastolic 51–57; PULSE 62–90; RESP 16–20; TEMP 36.4–36.7; O2SAT 98–100
--- NOTE | 2020-09-01 00:43 | PC.NURSE ---
Patient just got transferred from main ED, [facility] faxed/called/spoke with Delfina/confirmed receipt of referral,/no ETA at this time, will continue to monitor. Patient made aware that CT head id negative,
--- NOTE | 2020-09-01 07:29 | PC.NURSE ---
Report received from PINEDA Alcala. Pt resting, resp unlabored.
--- NOTE | 2020-09-01 09:21 | PC.NURSE ---
[facility] in to see pt
--- NOTE | 2020-09-01 10:14 | PC.NURSE ---
Pt seen by [facility], is an inpatient bed search. Pt showered, currently out on unit, appears to be responding to internal stimuli. Right arm in a cast- dry,+CMS. No concerns reported.
[2020-09-01 10:41] LABS: MANUAL DIFF FLAG NO
--- NOTE | 2020-09-01 10:54 | PC.NURSE ---
Long-Term: [phone] called re: medications. Will send med list. Staff states that pt has been off medications 6-7 months.
[2020-09-01 11:03] LABS: Alanine Aminotransferase 9 U/L (0-40); Albumin Level 4.3 g/dL (3.5-5.0); Alkaline Phosphatase 52 U/L (39-117); Anion Gap 11 (12-20); Aspartate Amino Transferase 16 U/L (5-37); Basophils Percent Auto 0.2 % (0-2); Bilirubin Direct 0.3 mg/dL (0.0-0.5); Bilirubin Total 0.8 mg/dL (0.0-1.0); Blood Urea Nitrogen 13 mg/dL (9-16); Calcium 9.1 mg/dL (8.4-10.2); Carbon Dioxide 29 mmol/L (22-29); Chloride 103 mmol/L (96-108); Creatinine Clr Calc Pharmacy 100.6; Eosinophils Absolute Auto 0.1 X10*3/uL (0.0-0.4); Eosinophils Percent Auto 0.6 % (0-4); Estimated Glomerular Filt Rate > 60; Glucose Random 101 mg/dL (60-115); Hematocrit 44.1 % (42-52); Hemoglobin 14.4 g/dl (14.0-18.0); Imm Gran Abs Auto 0.03 X10*3/uL (0.00-0.03); Imm Gran Pct Auto 0.3 % (0.0-0.4); Lymphocytes Absolute Auto 1.7 X10*3/uL (1.2-4.9); Lymphocytes Percent Auto 18.9 % (20-40); Mean Corpuscular HGB Conc 32.7 g/dl (31.0-36.0); Mean Corpuscular Hemoglobin 26.9 pg (27.0-33.0); Mean Corpuscular Volume 82.4 fL (80-98); Mean Platelet Volume 9.8 fL (9.4-12.4); Monocytes Absolute Auto 0.6 X10*3/uL (0.1-1.2); Monocytes Percent Auto 6.9 % (2-11); Neutrophils Absolute Auto 6.6 X10*3/uL (2.0-8.3); Neutrophils Percent Auto 73.1 % (45-73); Platelet Count 266 X10*3/uL (160-400); Potassium 4.2 mmol/l (3.3-5.1); Red Blood Count 5.35 X10*6/uL (4.60-5.80); Red Cell Distribution Width 14.3 % (11.0-16.0); Sodium 139 mmol/L (135-145)
--- NOTE | 2020-09-01 12:18 | PC.NURSE ---
Pt aware that he is waiting for inpatient bed. Pt states he does not feel that he neds to go inpatient, states he was 'lying' on n assessment, denies si, denies any concerns w/ alf. pt is reporting some anxiety, requesting medication.
[2020-09-01] MEDS: LORazepam 1 MG TABLET PO ×2 (12:36→21:59)
--- NOTE | 2020-09-01 13:40 | PC.NURSE ---
Pt resting, resp unlabored
[2020-09-01 13:42] LABS: COVID-19 Test Negative (Negative)
--- NOTE | 2020-09-01 15:11 | PC.NURSE ---
Dr James Mccarty in to evaluate pt.
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
--- NOTE | 2020-09-01 15:35 | PC.NURSE ---
Pt seen by psych consult; currently resting in common area.
--- NOTE | 2020-09-01 19:27 | PC.NURSE ---
Patient in milieu, watching TV, no distress reported, will continue to monitor.
[2020-09-01] MEDS: Ibuprofen 800 MG TABLET PO (21:31)
--- NOTE | 2020-09-01 21:38 | PC.NURSE ---
Patient c/o of right hand and left cheek pain, administered ibuprofen 800 mg po as ordered/pending effect, will continue to monitor.
[2020-09-01] MEDS: HaloperidoL 1 MG TABLET 2 MG PO (21:59)
--- NOTE | 2020-09-01 22:02 | PC.NURSE ---
Patient requested his PRN Haldol 2 mg and Ativan 1 mg, administered as ordered, will continue to monitor.
--- NOTE | 2020-09-02 07:04 | PC.NURSE ---
Report received from PINEDA Alcala. Pt resting, resp unlabored.
[2020-09-02 08:00] VITALS: RESP 16
[2020-09-02] MEDS: Acetaminophen 325 MG TABLET 650 MG PO (09:14)
[2020-09-02] MEDS: HaloperidoL 1 MG TABLET 2 MG PO (09:15)
--- NOTE | 2020-09-02 09:15 | PC.NURSE ---
Pt awake, requested Haldol instead of Abilify- states Haldol is better for his thoughts. Pt agreed to take the Haldol now, and revisit taking Abilify later this morning.
[2020-09-02 10:00] VITALS: RESP 16
[2020-09-02 10:06] VITALS: BP 118/64; PULSE 73; TEMP 36.4; O2SAT 100
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
--- NOTE | 2020-09-02 10:26 | PC.NURSE ---
Pt currently on telephone- C Diamond aware of swelling left side.
--- NOTE | 2020-09-02 10:43 | PC.NURSE ---
pt to ct scan
--- NOTE | 2020-09-02 10:51 | PC.NURSE ---
[facility]N in to evaluate, pt returned from CT
[2020-09-02] MEDS: ARIPiprazole 5 MG TABLET PO (11:13)
--- NOTE | 2020-09-02 11:13 | PC.NURSE ---
Pt accepted Abilify, though concerned that the medication may 'slow me down.'
[2020-09-02 12:00] VITALS: RESP 20
--- NOTE | 2020-09-02 12:45 | PC.NURSE ---
Pt conversing w/ staff, affect variable, continues to express concerns about medications, reports some tightening in the chest even in anticipating taking the medication. Provider aware.
== END 2020-09-02 01:45 | disposition home or self-care (01) ==
PROVIDERS: Physician Assistant Medical; Emergency Provider Emergency Medicine
DX: S06.0X9A Concussion with loss of consciousness of unspecified duration, initial encounter (principal); S00.512A Abrasion of oral cavity, initial encounter; G44.309 Post-traumatic headache, unspecified, not intractable; M54.2 Cervicalgia; R45.851 Suicidal ideations; F12.90 Cannabis use, unspecified, uncomplicated; Y04.0XXA Assault by unarmed brawl or fight, initial encounter; Y93.9 Activity, unspecified; Y92.9 Unspecified place or not applicable; Y99.9 Unspecified external cause status; Z20.828 Contact with and (suspected) exposure to other viral communicable diseases; Z79.899 Other long term (current) drug therapy
CPT/HCPCS: 0241U; 36415; 70450; 70486; 72125; 80048; 80076; 80307; 81003; 85025; 87635; 99282; 99284; 99285

== ENCOUNTER 2021-09-18 12:58 | Emergency (ER) | payer MEDICARE, MEDICAID, SELFPAY ==
[2021-09-18 13:10] VITALS: BP 120/71; PULSE 82; RESP 18; TEMP 37.1; O2SAT 98; BMI 22.7
[2021-09-18 14:06] LABS: IDNOW Serial# 9DD0AD1C
[2021-09-18 14:07] LABS: COVID-19 Test Negative (Negative)
--- NOTE | 2021-09-18 14:58 | ED.GENADULT ---
HPI - General Adult General Chief complaint: General Medical Stated complaint: Sob, Fever Time Seen by Provider: 09/18/21 14:48 Source: patient Mode of arrival: ambulatory Limitations: no limitations History of Present Illness HPI narrative: 26-year-old male with history of schizophrenia here with reports of nasal congestion, sinus pressure and pain and sore throat for the last 2 weeks. Patient tells me he was prescribed a course of doxycycline but unfortunately he lost the prescription after taking only 3 days the medicine. He feels like his symptoms have continued. He denies any fevers, chills, vomiting, diarrhea, difficulty swallowing or breathing. Related Data Home Medications Medication Instructions Recorded Confirmed aripiprazole 10 mg tablet (Abilify) 10 mg PO DAILY 09/01/20 09/01/20 haloperidol 5 mg tablet 5 mg PO DAILY PRN 09/01/20 09/01/20 Previous Rx's Medication Instructions Recorded aripiprazole 5 mg tablet (Abilify) 5 mg PO BEDTIME PRN #30 tab 09/02/20 doxycycline monohydrate 100 mg 100 mg PO BID 10 Days #20 cap 09/02/20 capsule haloperidol 2 mg tablet 2 mg PO Q6H PRN #30 tab 09/02/20 doxycycline monohydrate 100 mg 100 mg PO BID 10 Days #20 cap 09/18/21 capsule fluticasone propionate 50 2 spray INTRANASAL DAILY PRN #16 g 09/18/21 mcg/actuation nasal spray,suspension Allergies Allergy/AdvReac Type Severity Reaction Status Date / Time cefaclor [From [facility]] Allergy Unknown RASH Verified 08/14/20 11:58 penicillin Allergy Unknown Unknown Uncoded 08/05/20 11:19 Review of Systems Review of Systems: Yes all other systems are reviewed and are negative Constitutional: Constitutional: Reports no additional constitutional complaints, Denies body ache(s), Denies chills, Denies fever(s), Denies headache(s) and Denies weakness Eyes: Eyes: Reports no additional eye complaints and Denies change in vision ENT: Reports system reviewed and no additional complaints, except as documented, Denies dizziness, Denies headache(s), Reports nasal congestion, Denies nasal discharge, Denies neck pain, Reports sinus pain, Reports sinus pressure and Reports sore throat Cardiovascular: Cardiovascular: Reports no additional cardiovascular complaints, Denies chest pain, Denies leg edema and Denies dyspnea Respiratory: Respiratory: Reports no additional respiratory complaints, Denies cough and Denies dyspnea Gastrointestinal: Gastrointestinal: Reports no additional gastrointestinal complaints, Denies abdominal pain, Denies diarrhea, Denies nausea and Denies vomiting Genitourinary: Genitourinary: Denies urinary incontinence Musculoskeletal: Musculoskeletal: Reports no additional musculoskeletal complaints, Denies back pain, Denies arthralgias, Denies joint swelling, Denies neck pain, Denies numbness and Denies tingling Integumentary/Breasts: Skin/Breast: Reports system reviewed and no additional complaints, except as docu and Denies rash Neurologic: Reports system reviewed and no additional complaints, except as documented, Denies Abnormal speech present, Denies dizziness, Denies headache(s), Denies numbness, Denies tingling and Denies weakness PMFSH Past Medical History Attestation statement: The following information was validated with the patient. Source: old records reviewed and nursing notes reviewed Medical History Schizophrenia Social History Social History Alcohol intake: never Substance Use Type: Marijuana Advance Directives: No Advance Directives Information Provided: Yes Current occupation: [employer] Physical Exam Vital Signs: Vital Signs: Last Vital Signs Temp 98.7 F 09/18/21 13:10 Pulse 82 09/18/21 13:10 Resp 18 09/18/21 13:10 BP 120/71 09/18/21 13:10 Pulse Ox 98 09/18/21 13:10 BMI result Body Mass Index 22.7 Const: General: cooperative, healthy appearing, comfortable and no acute distress Orientation/consciousness: patient oriented x3 Limitations: no limitations HENMT: Head: Yes normal to inspection Ears: hearing grossly normal bilaterally and TM's normal bilaterally General nose exam: Normal external nose present Face and sinus: Yes normal facial exam, Yes sinus tenderness (Maxillary and frontal) and Yes other (Bilateral nasal turbinate erythema and swelling) Mouth: Normal oral and palatal mucosa present Throat: Yes posterior oropharynx normal, Yes tonsils normal and Yes uvula midline Eyes: General: appearance normal, both eyes and all related structures Pupils: Equal, round and reactive pupils present Neck: Neck: Yes normal visual inspection, Yes full ROM and Yes no lymphadenopathy Chest: Chest palpation & inspection: normal inspection of the chest Resp: Effort & Inspection: normal respiratory effort Auscultation: clear to auscultation bilaterally Cardio: Rate: regular rate Rhythm: regular rhythm Peripheral pulses: Peripheral pulses 2+ throughout GI: Inspection: Yes normal to inspection Palpation (GI): Soft to palpation and nontender Auscultation: normal bowel sounds Back/Spine/Pelvis: Thoracic/Lumbar Spine: thoracic and lumbar spine normal to inspection Skin: General skin exam: no rashes or lesions noted Neuro: General: patient oriented x3, no focal motor deficits and normal sensation to monofilament Cranial nerves: Yes Equal, round and reactive pupils present Cognition (Neuro): normal cognition Speech: No Abnormal speech present Gait exam (Neuro): Normal gait present Motor exam (neuro): 5/5 motor strength present throughout Extrem: General: Yes normal to inspection Course Course Course Narrative: 26-year-old male here with complaints of sinus pressure, sinus pain, nasal congestion and sore throat for about 2 weeks. Patient was prescribed a course of antibiotics for sinusitis but did not complete the course due to losing his prescription. Exam is consistent with sinusitis. COVID screen is negative. Will treat with course of antibiotics. Reviewed worrisome signs and symptoms of when to return to the emergency department. Comfortable discharge home. Medical Decision Making Medical Records Medical records reviewed: Yes I reviewed the patient's medical records. Lab Data Lab results reviewed: Yes I reviewed the patient's lab results. Labs: Lab Results 09/18/21 Range/Units 13:31 COVID-19 (DIVYA) Negative (Negative) COVID-19 Clin Com See Note Discharge Plan Discharge Clinical Impression: Sinusitis Patient Disposition: Home, Self-Care Instructions: Sinusitis (ED) Additional Instructions: Covid test is negative Prescriptions: New fluticasone propionate 50 mcg/actuation spray,suspension 2 spray intranasal DAILY PRN (Reason: nasal congestion) Qty: 16 RF: 0 doxycycline monohydrate 100 mg capsule 100 mg PO BID 10 Days Qty: 20 RF: 0 No Action haloperidol [Haldol] 5 mg Tablet 5 mg PO DAILY PRN (Reason: Agitation) RF: 0 aripiprazole [Abilify] 10 mg Tablet 10 mg PO DAILY RF: 0 aripiprazole [Abilify] 5 mg tablet 5 mg PO BEDTIME PRN (Reason: agitation/anxiety) Qty: 30 RF: 0 haloperidol 2 mg tablet 2 mg PO Q6H PRN (Reason: agitation/anxiety ) Qty: 30 RF: 0 doxycycline monohydrate 100 mg capsule 100 mg PO BID 10 Days Qty: 20 RF: 0 Referrals: [facility] [Primary Care Provider] - 2 days Interventions: ED Discharge Assessment Last Done: 09/18/21 15:13 Discharge Date/Time: 09/18/21 15:13
== END 2021-09-18 15:13 | disposition home or self-care (01) ==
LOC: HO.ED 15:09
PROVIDERS: Emergency Provider Emergency Medicine Emergency Medical Services
DX: J32.9 Chronic sinusitis, unspecified (principal); R50.9 Fever, unspecified; R06.02 Shortness of breath; Z79.899 Other long term (current) drug therapy; Z20.822 Contact with and (suspected) exposure to COVID-19
CPT/HCPCS: 36415; 87635; 99283

== ENCOUNTER 2022-04-14 17:10 | Inpatient (IN) | payer MEDICARE, MEDICAID, SELFPAY ==
[2022-04-14 17:29] VITALS: BP 128/76; PULSE 85; O2SAT 98; BMI 24.4
--- NOTE | 2022-04-14 17:55 | ED_ITS ---
HPI - Psych General Chief Complaint: Psychiatric Symptoms Stated Complaint: SEC 12 Time Seen by Provider: 04/14/22 17:48 Source: patient and EMS Mode of arrival: EMS Limitations: no limitations History of Present Illness HPI Narrative: Patient comes to the emergency room from [facility] on a Section 12. Patient states that he has not been taking her medicines for over a month, because he feels that he does not needed. Also, patient states that his medications make him feel very tired all the time and does not want to feel this way. Patient denies suicidal or homicidal ideation. Patient is on a Snyder ordered and has not been compliant with his meds. Related Data Home Medications Medication Instructions Recorded Confirmed aripiprazole 10 mg tablet (Abilify) 10 mg PO DAILY 09/01/20 09/01/20 haloperidol 5 mg tablet 5 mg PO DAILY PRN Agitation 09/01/20 09/01/20 Previous Rx's Medication Instructions Recorded aripiprazole 5 mg tablet (Abilify) 5 mg PO BEDTIME PRN 09/02/20 agitation/anxiety #30 tabs doxycycline monohydrate 100 mg 100 mg PO BID 10 days #20 caps 09/02/20 capsule haloperidol 2 mg tablet 2 mg PO Q6H PRN agitation/anxiety 09/02/20 #30 tabs doxycycline monohydrate 100 mg 100 mg PO BID 10 days #20 caps 09/18/21 capsule fluticasone propionate 50 2 spray intranasal DAILY PRN nasal 09/18/21 mcg/actuation nasal congestion #16 grams spray,suspension Allergies Allergy/AdvReac Type Severity Reaction Status Date / Time cefaclor [From [facility]] Allergy Unknown RASH Verified 08/14/20 11:58 penicillin Allergy Unknown Unknown Uncoded 08/05/20 11:19 Review of Systems Review of Systems: Constitutional : No Weight loss, No Fever, No Chills, No Night Sweats, No Fatigue, No Malaise ENT/Mouth : No Hearing loss, No Ear Pain, No Nasal Congestion, No Sinus Pain, No Hoarseness, No sore throat, No Rhinorrhea, No Swallowing Difficulty Eyes: No Eye Pain, No Swelling, No Redness, No Foreign Body, No Discharge, No Vision Changes Cardiovascular : No Chest Pain, No SOB, No Dyspnea on Exertion, No Orthopnea, No Edema, No Palpitations Respiratory : No Cough, No Sputum, No Wheezing, No Smoke Exposure, No Dyspnea Gastrointestinal : No Nausea, No Vomiting, No Diarrhea, No Constipation, No abdominal Pain, No Hematochezia, No Melena Genitourinary : no irregular bleeding, No Dysuria, No Urinary Frequency, No Hematuria, No Urinary Incontinence, No Urgency, No Flank Pain, No Urinary Flow Changes, No Hesitancy Musculoskeletal : No joint pain, No Myalgias, No Joint Swelling Skin : No Skin Lesions, No rash Neuro : No Weakness, No Numbness, No Paresthesias, No Loss of Consciousness, No Dizziness, No Headache Psych : No Anxiety/Panic, No Depression, No SI/HI/AH/VH, No Social Issues, Heme/Lymph: No Bruising, No Bleeding,No Lymphadenopathy Endocrine : No Polyuria, No Polydipsia, No Temperature Intolerance [facility] Past Medical History Medical History Schizophrenia Social History Social History Alcohol intake: never Substance Use Type: Marijuana Current occupation: [employer] Physical Exam Vital Signs: Vital Signs: BMI result Body Mass Index 24.4 Const: Other: Appearance: Alert. Oriented X3. No acute distress. Eyes: Pupils equal, round and reactive to light. ENT: Pharynx normal. Neck: Normal inspection. Neck supple. No lymph nodes noted. No crepitus CVS: Normal heart rate and rhythm. Pulses normal. Normal S1 and S2 Respiratory: No respiratory distress. Breath sounds normal. No Wheezing. No rales Abdomen: Soft and nontender. No rigidity. No distention. Skin: Skin warm and dry. Normal skin color. Normal skin turgor. Extremities: No lower extremity edema. No Lacerations. No Rash Neuro: Oriented X 3. No motor deficit. No sensory deficit. Moving all extremities. No slurred speech. CN 2 through 12 grossly intact Psych: calm, cooperative, normal affect Course Course Course Narrative: Patient is on a Section 12, sectioned by behavioral health network in the community. Seems the patient is a bed search. BH in consult has been requested. Physician observation started at 18:00 Discharge Plan Discharge Clinical Impression: Schizophrenia, Non compliance w medication regimen Patient Disposition: Still a Patient Prescriptions: No Action haloperidol [Haldol] 5 mg Tablet 5 mg PO DAILY PRN (Reason: Agitation) aripiprazole [Abilify] 10 mg Tablet 10 mg PO DAILY aripiprazole [Abilify] 5 mg tablet 5 mg PO BEDTIME PRN (Reason: agitation/anxiety) Qty: 30 0RF haloperidol 2 mg tablet 2 mg PO Q6H PRN (Reason: agitation/anxiety ) Qty: 30 0RF doxycycline monohydrate 100 mg capsule 100 mg PO BID 10 Days Qty: 20 0RF fluticasone propionate 50 mcg/actuation spray,suspension 2 spray intranasal DAILY PRN (Reason: nasal congestion) Qty: 16 0RF Rx Instructions: administer into each nostril doxycycline monohydrate 100 mg capsule 100 mg PO BID 10 Days Qty: 20 0RF
[2022-04-14 18:32] LABS: COVID-19 Test Negative (Negative)
[2022-04-14 20:32] LABS: Appearance Urine CLEAR; Color Urine STRAW; Glucose Urine UA NEG (NEG); Leukocyte Esterase Urine NEG (NEG); Nitrite Urine NEG (NEG); Specific Gravity - Urine <= 1.005 (1.005-1.025); Urine Blood NEG (NEG); Urine Ketones 15 MG/DL (NEG); Urine Protein NEG (NEG-TRACE)
[2022-04-14 20:39] LABS: Amphetamine Screen Urine Not Detected (Not Detect); Barbiturates, Urine Not Detected (Not Detect); Benzodiazepines Screen Urine Not Detected (Not Detect); Cannabinoid Screen Urine POSITIVE (Not Detect); Cocaine Screen Urine Not Detected (Not Detect); Fentanyl, urine Not Detected (Not Detect); Opiate Screen Urine Not Detected (Not Detect); Phencyclidine Screen Urine Not Detected (Not Detect)
[2022-04-14 21:56] VITALS: BP 113/58; PULSE 69; RESP 16; TEMP 36.6; O2SAT 98
[2022-04-14 23:46] VITALS: BP 120/64; PULSE 72; RESP 16; TEMP 36.9; O2SAT 98
[2022-04-15 01:52] VITALS: RESP 16
[2022-04-15 03:51] VITALS: BP 102/56; PULSE 99; RESP 16; TEMP 36.9; O2SAT 98
[2022-04-15 06:00] VITALS: BP 131/61; PULSE 74; RESP 16; TEMP 36.6; O2SAT 98
[2022-04-15 08:45] VITALS: BP 143/61; PULSE 54; RESP 16; O2SAT 98
[2022-04-15 14:07] LABS: Hematocrit 44.7 % (42.0-52.0); Hemoglobin 14.3 g/dl (14.0-18.0); Mean Corpuscular Hemoglobin 25.7 pg (27.0-33.0); Mean Corpuscular Volume 80.3 fL (80.0-98.0); Mean Platelet Volume 10.1 fL (9.4-12.4); Platelet Count 205 X10*3/uL (160-400); Red Blood Count 5.57 X10*6/uL (4.60-5.80); Red Cell Distribution Width 16.1 % (11.0-16.0); White Blood Count 7.7 X10*3/uL (4.8-10.8)
--- NOTE | 2022-04-15 14:17 | PC.NURSE ---
report given to jorge luis lorenz
[2022-04-15 14:27] LABS: Alanine Aminotransferase 14 U/L (0-40); Albumin Level 4.6 g/dL (3.5-5.0); Alkaline Phosphatase 59 U/L (39-117); Anion Gap 12 (12-20); Aspartate Amino Transferase 17 U/L (5-37); Bilirubin Total 0.6 mg/dL (0.0-1.0); Blood Urea Nitrogen 7 mg/dL (9-16); Calcium 9.4 mg/dL (8.4-10.2); Carbon Dioxide 25 mmol/L (22-29); Chloride 108 mmol/L (96-108); Creatinine Clr Calc Pharmacy 116.8; Estimated Glomerular Filt Rate > 60; Glucose Random 98 mg/dL (60-115); Sodium 141 mmol/L (135-145); Total Protein 7.1 g/dL (6.5-8.0)
[2022-04-15 16:00] VITALS: BP 130/62; PULSE 62; RESP 16; TEMP 36.5; O2SAT 98
[2022-04-15 16:15] VITALS: BP 136/75; PULSE 81; TEMP 36.2; O2SAT 99
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
[2022-04-15] MEDS: clonazePAM 0.5 MG TABLET PO (19:50)
[2022-04-15] MEDS: traZODone HCL 50 MG TABLET PO (22:29)
[2022-04-15] MEDS: OLANZapine 5 MG TABLET PO (22:31)
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
[2022-04-16 06:00] VITALS: BP 102/58; PULSE 58; TEMP 36.7; O2SAT 97
[2022-04-16 09:18] LABS: Estimated Average Glucose 103 mg/dL; Hemoglobin A1c % 5.2 %
[2022-04-16 09:43] LABS: Cholesterol 166 mg/dL; HDL Cholesterol 45 mg/dL; LDL Cholesterol Calculated 105 mg/dl; Triglycerides 82 mg/dL
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
[2022-04-16] MEDS: LORazepam 1 MG TABLET 2 MG PO (17:04)
[2022-04-16 18:00] VITALS: BP 114/65; PULSE 88; RESP 18; TEMP 36.4; O2SAT 97
[2022-04-16] MEDS: clonazePAM 0.5 MG TABLET PO ×2 (18:47→22:56)
[2022-04-16] MEDS: OLANZapine 5 MG TABLET PO (19:56)
[2022-04-16] MEDS: diphenhydrAMINE HCL 25 MG TABLET 50 MG PO (20:01)
[2022-04-16] MEDS: traZODone HCL 50 MG TABLET PO (22:56)
[2022-04-17] MEDS: hydrOXYzine HCL 25 MG TABLET PO ×3 (00:14→20:59)
[2022-04-17] MEDS: diphenhydrAMINE HCL 25 MG TABLET 50 MG PO (00:14)
[2022-04-17 06:33] VITALS: BP 99/65; PULSE 42; RESP 16; TEMP 36.3; O2SAT 100
[2022-04-17] MEDS: clonazePAM 0.5 MG TABLET PO (08:52)
[2022-04-17 09:03] VITALS: BMI 24.4
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
[2022-04-17] MEDS: cloNIDine HCL 0.1 MG TABLET PO (17:09)
[2022-04-17 18:00] VITALS: BP 124/78; PULSE 99; RESP 16; TEMP 36.8; O2SAT 99
[2022-04-17] MEDS: traZODone HCL 50 MG TABLET PO (20:59)
[2022-04-18] MEDS: buPROPion HCl XL 150 MG TAB.ER.24H PO (08:43)
[2022-04-18 09:28] VITALS: BP 113/63; PULSE 80; RESP 18; TEMP 37.1; O2SAT 98
[2022-04-18] MEDS: risperiDONE 1 MG TABLET PO ×2 (11:19→19:00)
[2022-04-18] MEDS: cloNIDine HCL 0.1 MG TABLET PO (15:54)
[2022-04-18] MEDS: hydrOXYzine HCL 25 MG TABLET PO (15:54)
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
[2022-04-18] MEDS: Gabapentin 300 MG CAPSULE PO ×2 (16:41→19:00)
[2022-04-18 17:58] VITALS: BP 116/64; PULSE 112; TEMP 37; O2SAT 97
[2022-04-19] MEDS: Acetaminophen 325 MG TABLET 650 MG PO (01:47)
[2022-04-19] MEDS: risperiDONE 1 MG TABLET PO ×2 (01:48→12:14)
[2022-04-19] MEDS: traZODone HCL 50 MG TABLET PO (01:48)
[2022-04-19 06:00] VITALS: BP 111/64; PULSE 97; RESP 18; TEMP 36.8; O2SAT 99
[2022-04-19] MEDS: Gabapentin 300 MG CAPSULE PO ×2 (06:43→21:33)
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
[2022-04-19 16:47] VITALS: BP 112/58; PULSE 81; RESP 18; TEMP 36.8; O2SAT 98
[2022-04-20 06:00] VITALS: BP 119/72; PULSE 110; RESP 18; TEMP 37.3; O2SAT 96
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
[2022-04-20] MEDS: Gabapentin 300 MG CAPSULE PO ×2 (08:41→16:23)
[2022-04-20] MEDS: risperiDONE 1 MG TABLET PO (08:41)
[2022-04-20 16:29] VITALS: BP 127/66; PULSE 94; RESP 18; TEMP 36.8; O2SAT 99
[2022-04-20] MEDS: Nicotine Polacrilex 2 MG GUM 4 MG BUCCAL (19:48)
[2022-04-20] MEDS: chlorproMAZINE HCl 25 MG TABLET 50 MG PO (20:18)
--- NOTE | 2022-04-20 21:37 | PC.NURSE ---
PT continues to complain of increased anxiety 05/07, Gabapentin ordered and given with no effect. call center dispatcher contacted, Thorazine 50mg ordered TID PRN. Thorazine given with good effect, pt reports thoughts are clearer and anxiety decreased.
[2022-04-21] MEDS: risperiDONE 1 MG TABLET PO ×2 (00:04→22:13)
[2022-04-21] MEDS: traZODone HCL 50 MG TABLET PO (00:04)
[2022-04-21] MEDS: chlorproMAZINE HCl 25 MG TABLET 50 MG PO ×2 (09:41→22:15)
[2022-04-21] MEDS: Gabapentin 300 MG CAPSULE PO (14:24)
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
[2022-04-21] MEDS: busPIRone HCl 10 MG TABLET PO ×2 (17:02→22:23)
[2022-04-21 18:00] VITALS: BP 126/81; PULSE 82; TEMP 36.3; O2SAT 95
[2022-04-21] MEDS: Escitalopram Oxalate 5 MG TABLET PO (19:06)
[2022-04-22 06:37] VITALS: BP 106/63; PULSE 64; RESP 16; TEMP 36; O2SAT 100
[2022-04-22] MEDS: risperiDONE 1 MG TABLET PO ×2 (08:52→20:26)
[2022-04-22] MEDS: buPROPion HCl XL 150 MG TAB.ER.24H PO (08:52)
[2022-04-22] MEDS: Escitalopram Oxalate 5 MG TABLET PO (08:52)
[2022-04-22] MEDS: chlorproMAZINE HCl 25 MG TABLET 50 MG PO (08:53)
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
[2022-04-22] MEDS: busPIRone HCl 10 MG TABLET PO (13:31)
[2022-04-22] MEDS: chlorproMAZINE HCl 100 MG TABLET PO ×2 (16:50→20:29)
[2022-04-22 18:00] VITALS: BP 143/84; PULSE 108; RESP 16; TEMP 36.6; O2SAT 98
[2022-04-23] MEDS: chlorproMAZINE HCl 100 MG TABLET PO ×2 (05:47→15:50)
[2022-04-23 06:18] VITALS: BP 114/59; PULSE 94; RESP 16; TEMP 36.1; O2SAT 97
[2022-04-23] MEDS: risperiDONE 1 MG TABLET PO (09:23)
[2022-04-23] MEDS: Escitalopram Oxalate 10 MG TABLET PO (09:23)
[2022-04-23] MEDS: busPIRone HCl 10 MG TABLET PO (18:37)
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
[2022-04-24] MEDS: chlorproMAZINE HCl 100 MG TABLET PO (00:34)
[2022-04-24] MEDS: busPIRone HCl 10 MG TABLET PO (01:51)
[2022-04-24 07:00] VITALS: BMI 24.5
[2022-04-24] MEDS: risperiDONE 1 MG TABLET PO (08:29)
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
[2022-04-24] MEDS: Escitalopram Oxalate 10 MG TABLET PO (10:17)
[2022-04-24] MEDS: Benztropine Mesylate 0.5 MG TABLET PO (12:10)
== END 2022-04-24 13:15 | disposition home or self-care (01) | DRG 885 ==
LOC: HO.ED 18:21 → HO.PM5 04-15 15:37
PROVIDERS: Admitting Provider Psychiatry & Neurology Psychiatry; Emergency Provider Emergency Medicine; Visit Provider Psychiatry & Neurology Psychiatry
DX: F20.9 Schizophrenia, unspecified (principal); F43.10 Post-traumatic stress disorder, unspecified; Z91.14 Patient's other noncompliance with medication regimen; Z20.822 Contact with and (suspected) exposure to COVID-19; Z88.0 Allergy status to penicillin; Z88.8 Allergy status to other drugs, medicaments and biological substances; Z79.899 Other long term (current) drug therapy
CPT/HCPCS: 36415; 80053; 80061; 80307; 81003; 83036; 85027; 87635; 99284; Q0163

== ENCOUNTER 2022-04-29 18:56 | Inpatient (IN) | payer MEDICARE, MEDICAID, SELFPAY ==
[2022-04-29 19:08] VITALS: BP 120/72; PULSE 53; RESP 16; TEMP 36.5; O2SAT 99; BMI 23.6
[2022-04-29 19:42] LABS: COVID-19 Test Negative (Negative)
--- NOTE | 2022-04-29 21:13 | ED_ITS ---
HPI - Psych General Chief Complaint: Psychiatric Symptoms Stated Complaint: Section 12 Time Seen by Provider: 04/29/22 21:13 Source: patient Mode of arrival: ambulatory Limitations: no limitations History of Present Illness HPI Narrative: Patient with History of bipolar disorder supposed to be on medications on Snyder order not taking his medication for few months brought by EMS for increased aggression and impulsivity. Patient denies any substance abuse except for marijuana. Patient feels the medication not necessary and by taking his medication he gained 1 lb Related Data Home Medications Medication Instructions Recorded Confirmed benztropine 0.5 mg tablet 1 tab PO BID 04/29/22 04/29/22 buspirone 10 mg tablet 1 tab PO TID PRN anxiety 04/29/22 04/29/22 escitalopram oxalate 10 mg tablet 1 tab PO DAILY 04/29/22 04/29/22 haloperidol 2 mg tablet 1 tab PO BEDTIME 04/29/22 04/29/22 trazodone 50 mg tablet 1 tab PO BEDTIME PRN insomnia 04/29/22 04/29/22 Allergies Allergy/AdvReac Type Severity Reaction Status Date / Time cefaclor [From CECLOR] Allergy Unknown RASH Verified 08/14/20 11:58 penicillin Allergy Unknown Unknown Uncoded 08/05/20 11:19 Review of Systems Review of Systems: Yes all other systems are reviewed and are negative PMFSH Past Medical History Medical History Schizophrenia Social History Social History Household Members: Other Household Members Other:: CORRECTION Housing: Other Housing Other:: [facility] Do you presently have visiting nurse or other home services: No Alcohol intake: never Patient Tobacco Use Status: Never used Tobacco Second Hand Smoke Exposure: Yes Substance Use Type: Marijuana and Caffiene Advance Directives: No Advance Directives Information Provided: No service: No Current occupation: [employer] Sexual orientation: Did not discuss Physical Exam Vital Signs: Vital Signs: Last Vital Signs Temp 97.7 F 04/29/22 19:08 Pulse 53 04/29/22 19:08 Resp 16 04/29/22 19:08 BP 120/72 04/29/22 19:08 Pulse Ox 99 04/29/22 19:08 O2 Del Method 04/29/22 19:08 BMI result Body Mass Index 23.6 Appearance: Alert. Oriented X3. No acute distress. Eyes: PERRLA, No Nystagmus ENT: Pharynx normal. Oral Mucosa moist Neck: Normal inspection. Neck supple. CVS: Normal heart rate and rhythm. Pulses normal. Respiratory: No respiratory distress. Equal air entry bilateral, no wheezing/rales/rhonchi Abdomen: Soft and nontender. Bowel sounds are present, no mass palpable, no CVA tenderness Skin: Skin warm and dry. Normal skin color. Normal skin turgor. Extremities: No lower extremity edema. No calf tenderness Psych: Mood stable no suicidal feeling no other hallucination /delusion Neuro: Oriented X 3. No motor deficit. MDM - Psych MDM Narrative Medical decision making narrative: Patient with bipolar disorder [address] order plan for inpatient psych admission Lab Data Attestation: I reviewed the patient's lab results. Labs: Lab Results 04/29/22 04/29/22 Range/Units 19:16 22:18 Urine Opiates Screen Not Detected (Not Detect) Urine Fentanyl Screen Not Detected (Not Detect) Ur Barbiturates Screen Not Detected (Not Detect) Ur Phencyclidine Scrn Not Detected (Not Detect) Ur Amphetamines Screen Not Detected (Not Detect) U Benzodiazepines Scrn Not Detected (Not Detect) Urine Cocaine Screen Not Detected (Not Detect) U Marijuana (THC) Screen POSITIVE H (Not Detect) COVID-19 (DIVYA) Negative (Negative) COVID-19 Clin Com See Note Discharge Plan Discharge Clinical Impression: Bipolar disorder Patient Disposition: Still a Patient Prescriptions: No Action haloperidol 2 mg tablet 1 tab PO BEDTIME benztropine 0.5 mg tablet 1 tab PO BID trazodone 50 mg tablet 1 tab PO BEDTIME PRN (Reason: insomnia) buspirone 10 mg tablet 1 tab PO TID PRN (Reason: anxiety) escitalopram oxalate 10 mg tablet 1 tab PO DAILY
[2022-04-29] MEDS: LORazepam 1 MG TABLET 2 MG PO (22:11)
[2022-04-29] MEDS: HaloperidoL 1 MG TABLET 2 MG PO (22:11)
[2022-04-29] MEDS: diphenhydrAMINE HCL 25 MG TABLET 50 MG PO (22:11)
[2022-04-29 22:41] LABS: Amphetamine Screen Urine Not Detected (Not Detect); Barbiturates, Urine Not Detected (Not Detect); Benzodiazepines Screen Urine Not Detected (Not Detect); Cannabinoid Screen Urine POSITIVE (Not Detect); Cocaine Screen Urine Not Detected (Not Detect); Fentanyl, urine Not Detected (Not Detect); Opiate Screen Urine Not Detected (Not Detect); Phencyclidine Screen Urine Not Detected (Not Detect)
[2022-04-30 06:12] VITALS: BP 113/84; PULSE 51; RESP 16; TEMP 36; O2SAT 100
--- NOTE | 2022-04-30 07:09 | PC.NURSE ---
patient appears to remain at rest at present respirations are even and unlabored patient appears in no distress.
--- NOTE | 2022-04-30 07:21 | PC.NURSE ---
Patient slept through the night, no distress observed/reported, disposition per N from community is section 12 inpatient bed search, medication compliant, behavior non concerning, VSS, will continue to monitor.
[2022-04-30] MEDS: Escitalopram Oxalate 10 MG TABLET PO (08:27)
[2022-04-30] MEDS: busPIRone HCl 10 MG TABLET PO ×2 (08:51→15:04)
--- NOTE | 2022-04-30 10:30 | PHA.MEDREC ---
Pharmacy Consult ? Medication Reconciliation RN has completed the medication reconciliation, pharmacy reviewed
[2022-04-30] MEDS: hydrOXYzine HCL 25 MG TABLET PO (15:04)
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
[2022-04-30 18:00] VITALS: BP 109/68; PULSE 69; RESP 16; TEMP 36.4; O2SAT 97
[2022-04-30] MEDS: traZODone HCL 50 MG TABLET PO (20:08)
[2022-04-30] MEDS: HaloperidoL 1 MG TABLET 2 MG PO (20:08)
[2022-04-30] MEDS: Benztropine Mesylate 0.5 MG TABLET PO (20:08)
[2022-05-01 06:00] VITALS: BP 121/56; PULSE 56; RESP 16; TEMP 36.4; O2SAT 100
[2022-05-01 07:00] VITALS: BMI 23.3
[2022-05-01] MEDS: Benztropine Mesylate 0.5 MG TABLET PO ×2 (08:30→20:29)
[2022-05-01] MEDS: Escitalopram Oxalate 10 MG TABLET PO (08:30)
[2022-05-01] MEDS: busPIRone HCl 10 MG TABLET PO ×2 (08:32→16:26)
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
--- NOTE | 2022-05-01 15:59 | PC.NURSE ---
Pt arrived to M3 with M5 staff and security, no behavioral issues. Oriented patient to unit and unit policies, pt does not have any questions at this time.
[2022-05-01] MEDS: hydrOXYzine HCL 25 MG TABLET PO (16:27)
[2022-05-01 19:58] VITALS: BP 129/56; PULSE 61; RESP 17; TEMP 36.6; O2SAT 98
[2022-05-01 20:00] VITALS: BP 124/71; PULSE 56; RESP 17; TEMP 36.6; O2SAT 98
[2022-05-01] MEDS: HaloperidoL 5 MG TABLET 10 MG PO (20:28)
[2022-05-01] MEDS: traZODone HCL 50 MG TABLET PO (20:29)
[2022-05-02 07:47] VITALS: BP 103/60; PULSE 70; TEMP 36.6; O2SAT 98
[2022-05-02] MEDS: Benztropine Mesylate 0.5 MG TABLET PO ×2 (07:52→20:46)
[2022-05-02] MEDS: Escitalopram Oxalate 10 MG TABLET PO (07:52)
[2022-05-02] MEDS: HaloperidoL 5 MG TABLET 10 MG PO (07:52)
--- NOTE | 2022-05-02 09:00 | ECG_ITS ---
Test Reason : qtc check Blood Pressure : / mmHG Vent. Rate : 055 BPM Atrial Rate : 055 BPM P-R Int : 120 ms QRS Dur : 100 ms QT Int : 444 ms P-R-T Axes : 072 -25 035 degrees QTc Int : 424 ms Sinus bradycardia Incomplete right bundle branch block Borderline ECG When compared with ECG of 24-MAY-2007 14:32, No significant changes seen Referred By: Nenita Godoy Electronically Signed By:SHRAVAN LANGLEY MD
[2022-05-02 09:56] LABS: Vitamin D 25-OH Total 10.3 ng/mL (>30)
[2022-05-02 09:58] LABS: TSH reflex Free T4 0.72 uIU/mL (0.32-4.0)
[2022-05-02 10:56] LABS: Folate 8.3 ng/mL (> or = 4.0); Vitamin B12 383 pg/mL (200-900)
--- NOTE | 2022-05-02 12:07 | HO.PSYCHPN ---
Subjective Subjective Date of Service: 05/02/22 Reason For Visit: PTSD, Schizoaffective Disorder, bipolar type Subjective Notes: Conditional Voluntary Interim History: Pt in no acute distressed. He reports he stopped medications as he felt they were not working. He reports injection site pain with paliperidone. He reports ODONNELL of haldol left loza on both deltoids- however, I do not see evidence of this. He reports he wants oral medication (he is on a ann) but has stopped oral meds 2 prior to recent admission. we discussed at this point to look for ODONNELL, lower dose of haldol 10mg /day and start ODONNELL. He denies SI/HI. He denies VH/AH. No overt delusional content noted or reported. Medication Compliance: Yes Side effects from medications: No Attending Groups: No Review of Systems Review of Systems Yes all other systems are reviewed and are negative Reports behavioral changes Psychiatric: Reports behavioral changes, Reports difficulty concentrating, Reports auditory hallucinations, Reports irritability, Reports anhedonia, Reports mood swings and Reports paranoia Mental Status Exam Mental Status Exam Narrative: Appearance: casually groomed, fair hygiene in NAD Behavior:cooperative psychomotor:no agitation or retardation noted Speech:clear, normal rate/rhythm/volume, spontaneous Thought process:mostly linear Thought content:no overt psychosis, wanting only oral meds but clearly not compliant with them Mood: okay Affect: congruent SI:none HI:none VH/AH:no overt signs Delusions:no overt delusional content noted or reported. Insight/judgment:poor x 2. Memory/cog: alert, oriented x 3. Diagnostics Vital Signs (24Hr): Vital Signs - 24 hr 05/02/22 18:00 Temperature 97.2 F Pulse Rate 63 Respiratory Rate 16 Blood Pressure 109/60 Pulse Oximetry 97 Oxygen Delivery Method Room Air BMI result Body Mass Index 23.3 Labs Labs: Laboratory Results - last 48 hr 05/02/22 05/02/22 05/02/22 08:22 08:22 08:22 Vitamin B12 383 25-OH Vitamin D Total 10.3 Folate 8.3 TSH Cancelled 0.72 Medications Medications Current Medications Acetaminophen (Acetaminophen 325 Mg Tablet) 650 mg PO Q6H PRN PRN Reason: Headache/Pain Mild Scale (1-3) Al Hydroxide/Mg Hydroxide (Magnesium Hydrox/Alum Hydrox 30 Ml Oral.Susp) 30 ml PO Q6H PRN PRN Reason: Heartburn/Nausea Benztropine Mesylate (Benztropine Mesylate 0.5 Mg Tablet) 0.5 mg PO BID [facility] Last Admin: 05/03/22 08:31 Dose: 0.5 mg Buspirone HCl (Buspirone Hcl 10 Mg Tablet) 10 mg PO TID PRN PRN Reason: anxiety Last Admin: 05/03/22 08:42 Dose: 10 mg Haloperidol (Haloperidol 5 Mg Tablet) 5 mg PO BID [facility] Last Admin: 05/03/22 08:31 Dose: 5 mg Haloperidol Lactate (Haloperidol Lactate 5 Mg/Ml Vial) 5 mg IM BID PRN PRN Reason: if refuses oral per ann Hydroxyzine HCl (Hydroxyzine Hcl 25 Mg Tablet) 25 mg PO Q6H PRN PRN Reason: Anxiety Last Admin: 05/03/22 08:42 Dose: 25 mg Magnesium Hydroxide (Milk Of Magnesia 30 Ml Oral.Susp) 30 ml PO DAILY PRN PRN Reason: Constipation Trazodone HCl (Trazodone Hcl 50 Mg Tablet) 50 mg PO BEDTIME PRN PRN Reason: insomnia Last Admin: 05/02/22 20:44 Dose: 50 mg Allergies Allergies Allergy/AdvReac Type Severity Reaction Status Date / Time cefaclor [From [facility]] Allergy Unknown RASH Verified 08/14/20 11:58 penicillin Allergy Unknown Unknown Uncoded 08/05/20 11:19 Assessment & Plan Assessment & Plan (1) Schizoaffective disorder, bipolar type: Status: Acute Code(s): F25.0 - Schizoaffective disorder, bipolar type (2) PTSD (post-traumatic stress disorder): Status: Acute Code(s): F43.10 - Post-traumatic stress disorder, unspecified Plan 26 yo male, history of PTSD, schizoaffective disorder-bipolar type, recent M5 admission, presents from his residence with reports of medication non-compliance (Carlitos's in place) with resulting verbal aggression, impulsive aggression to staff of his snf and peers. Pt recently admitted to [facility] M5 04/15-. Stopped meds per report on discharge. 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 Discussed his Carlitos's options and he has decided Haldol is his best choice after a full review of Holli with pt. Pt asks that we return his dose to 10 mg bid (effective by history) and asks that his next Carlitos's review be given the option of a Geodon trial due to increase in weight neutrality. Pt has been active on the unit and triggering to some of the more decompensated peers-encouraging boxing with them, running, and triggering of agitaiton in others. He has responded when limits were set and explanations were given, although he does report feeling it is humorous to escalate his peers and that he does enjoy it. Team has decided to do a move to M3 later today. Plan: 1. Start ODONNELL of haldol, continue oral dose of haldol 5mg po BID (back up IM ordered per marissa). I worried that if d/c again on oral meds with no ODONNELL he will stop and return to hospital soon. Haldol on ann. HAldol has no weight gain. 2. obtain collateral information 3. Aftercare planning. I spent minutes with the patient and/or on the patient floor today, greater than?50% of which was spent counseling/coordinating care. Reason for contiued inpatient stay Substantial Risk for: inability to function
[2022-05-02] MEDS: busPIRone HCl 10 MG TABLET PO (15:12)
[2022-05-02] MEDS: hydrOXYzine HCL 25 MG TABLET PO (15:12)
[2022-05-02 18:00] VITALS: BP 109/60; PULSE 63; RESP 16; TEMP 36.2; O2SAT 97
[2022-05-02] MEDS: traZODone HCL 50 MG TABLET PO (20:44)
[2022-05-03] MEDS: Benztropine Mesylate 0.5 MG TABLET PO ×2 (08:31→21:58)
[2022-05-03] MEDS: HaloperidoL 5 MG TABLET PO ×2 (08:31→21:58)
[2022-05-03] MEDS: busPIRone HCl 10 MG TABLET PO (08:42)
[2022-05-03] MEDS: hydrOXYzine HCL 25 MG TABLET PO (08:42)
[2022-05-03 08:50] VITALS: BP 119/56; PULSE 58; RESP 20; TEMP 36.1; O2SAT 98
[2022-05-03] MEDS: busPIRone HCl 5 MG TABLET 15 MG PO ×2 (14:10→23:01)
[2022-05-03] MEDS: hydrOXYzine HCL 50 MG TABLET PO ×2 (14:10→23:01)
--- NOTE | 2022-05-03 15:33 | P.PNPSI_ITS ---
Subjective Subjective Date of Service: 05/03/22 Reason For Visit: PTSD, Schizoaffective Disorder, bipolar type Interim History: Patient seen and discussed with team. He continues to complain of side effects of haldol even though the dose was decreased. He reports anxiety and requesting increase in his anxiolytics. He says he feels unsteady and fatigued from Haldol. Pt in no acute distressed. He denies SI/HI. He denies VH/AH. No overt delusional content noted or reported. Review of Systems Review of Systems Yes all other systems are reviewed and are negative Reports behavioral changes Psychiatric: Reports behavioral changes, Reports difficulty concentrating, Reports auditory hallucinations, Reports irritability, Reports anhedonia, Reports mood swings and Reports paranoia Mental Status Exam Mental Status Exam Narrative: Appearance: casually groomed, fair hygiene in NAD Behavior:cooperative psychomotor:no agitation or retardation noted Speech:clear, normal rate/rhythm/volume, spontaneous Thought process:mostly linear Thought content:no overt psychosis, wanting only oral meds but clearly not compliant with them Mood: okay Affect: congruent SI:none HI:none VH/AH:no overt signs Delusions:no overt delusional content noted or reported. Insight/judgment:poor x 2. Memory/cog: alert, oriented x 3. Patient Appearance: Appropriate Patient Orientation: Person, Place, Time and Situation Level of Consciousness: Awake, Restless and Alert Patient Behavior: Talkative, Hyperactive, Cooperative, Restless, Anxious, Distractible, Good Eye Contact and Impulsive Mood Description: Labile, Apprehensive and Expansive Affect Description: Labile Patient Cognition Impaired: Yes Ability to Follow Directions: Fair Speech Pattern: Perseverating, Spontaneous Speech, Soft-Spoken and Pressured (mild) Memory Description: Episodic Impaired Diagnostics Vital Signs (24Hr): Vital Signs - 24 hr 05/03/22 08:50 Temperature 97.0 F Pulse Rate 58 Respiratory Rate 20 Blood Pressure 119/56 L Pulse Oximetry 98 Oxygen Delivery Method Room Air BMI result Body Mass Index 23.3 Labs Labs: Laboratory Results - last 48 hr 05/02/22 05/02/22 05/02/22 08:22 08:22 08:22 Vitamin B12 383 25-OH Vitamin D Total 10.3 Folate 8.3 TSH Cancelled 0.72 Medications Medications Current Medications Acetaminophen (Acetaminophen 325 Mg Tablet) 650 mg PO Q6H PRN PRN Reason: Headache/Pain Mild Scale (1-3) Al Hydroxide/Mg Hydroxide (Magnesium Hydrox/Alum Hydrox 30 Ml Oral.Susp) 30 ml PO Q6H PRN PRN Reason: Heartburn/Nausea Benztropine Mesylate (Benztropine Mesylate 0.5 Mg Tablet) 0.5 mg PO BID [facility] Last Admin: 05/03/22 08:31 Dose: 0.5 mg Buspirone HCl (Buspirone Hcl 5 Mg Tablet) 15 mg PO TID PRN PRN Reason: anxiety Last Admin: 05/03/22 14:10 Dose: 15 mg Haloperidol (Haloperidol 5 Mg Tablet) 5 mg PO BID [facility] Last Admin: 05/03/22 08:31 Dose: 5 mg Haloperidol Lactate (Haloperidol Lactate 5 Mg/Ml Vial) 5 mg IM BID PRN PRN Reason: if refuses oral per ann Hydroxyzine HCl (Hydroxyzine Hcl 50 Mg Tablet) 50 mg PO Q6H PRN PRN Reason: Anxiety Last Admin: 05/03/22 14:10 Dose: 50 mg Magnesium Hydroxide (Milk Of Magnesia 30 Ml Oral.Susp) 30 ml PO DAILY PRN PRN Reason: Constipation Trazodone HCl (Trazodone Hcl 50 Mg Tablet) 50 mg PO BEDTIME PRN PRN Reason: insomnia Last Admin: 05/02/22 20:44 Dose: 50 mg Allergies Allergies Allergy/AdvReac Type Severity Reaction Status Date / Time cefaclor [From [facility]] Allergy Unknown RASH Verified 08/14/20 11:58 penicillin Allergy Unknown Unknown Uncoded 08/05/20 11:19 Assessment & Plan Assessment & Plan (1) Schizoaffective disorder, bipolar type: Status: Acute Code(s): F25.0 - Schizoaffective disorder, bipolar type (2) PTSD (post-traumatic stress disorder): Status: Acute Code(s): F43.10 - Post-traumatic stress disorder, unspecified Plan 26 yo male, history of PTSD, schizoaffective disorder-bipolar type, recent M5 admission, presents from his residence with reports of medication non-compliance (Carlitos's in place) with resulting verbal aggression, impulsive aggression to staff of his senior living and peers. Pt recently admitted to [facility] M5 04/15-. Stopped meds per report on discharge. 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 Discussed his Carlitos's options and he has decided Haldol is his best choice after a full review of Holli with pt. Pt asks that we return his dose to 10 mg bid (effective by history) and asks that his next Carlitos's review be given the option of a Geodon trial due to increase in weight neutrality. Pt has been active on the unit and triggering to some of the more decompensated peers-encouraging boxing with them, running, and triggering of agitaiton in others. He has responded when limits were set and explanations were given, although he does report feeling it is humorous to escalate his peers and that he does enjoy it. Team has decided to do a move to M3 later today. Plan: 1. Start ODONNELL of haldol, continue oral dose of haldol 5mg po BID (back up IM ordered per marissa). I worried that if d/c again on oral meds with no ODONNELL he will stop and return to hospital soon. Haldol on ann. HAldol has no weight gain. 2. obtain collateral information 3. Aftercare planning. 05/03: Increase Vistaril and Buspar. Continue other meds the same. I spent minutes with the patient and/or on the patient floor today, greater than?50% of which was spent counseling/coordinating care. Reason for contiued inpatient stay Substantial Risk for: inability to function and rapid decompensation
[2022-05-03 21:48] VITALS: BP 119/59; PULSE 65; RESP 18; TEMP 36.3; O2SAT 98
[2022-05-03] MEDS: traZODone HCL 50 MG TABLET PO (23:01)
[2022-05-04] MEDS: HaloperidoL 5 MG TABLET PO ×2 (08:44→20:08)
[2022-05-04] MEDS: Benztropine Mesylate 0.5 MG TABLET PO ×2 (08:44→20:08)
[2022-05-04] MEDS: hydrOXYzine HCL 50 MG TABLET PO ×3 (08:46→21:24)
[2022-05-04] MEDS: busPIRone HCl 5 MG TABLET 15 MG PO ×3 (08:47→20:18)
[2022-05-04 09:10] VITALS: BP 119/58; PULSE 84; RESP 20; TEMP 36.2; O2SAT 99
--- NOTE | 2022-05-04 15:26 | PC.NURSE ---
Report to PINEDA Arana
--- NOTE | 2022-05-04 15:34 | P.PNPSI_ITS ---
Subjective Subjective Date of Service: 05/04/22 Reason For Visit: PTSD, Schizoaffective Disorder, bipolar type Interim History: Patient seen and discussed with team. He continues to complain that he is feeling fatigued from the haldol. He appreciates increase in dose of hydroxyzine and buspar. He feels anxiety is better. Pt in no acute distress. He is seen fully alert and walking without difficulty on the unit throughout morning shift. He denies SI/HI. He denies VH/AH. No overt delusional content noted or reported. Review of Systems Review of Systems Yes all other systems are reviewed and are negative Reports behavioral changes Psychiatric: Reports behavioral changes, Reports difficulty concentrating, Reports auditory hallucinations, Reports irritability, Reports anhedonia, Reports mood swings and Reports paranoia Mental Status Exam Mental Status Exam Narrative: Appearance: casually groomed, fair hygiene in NAD Behavior:cooperative psychomotor:no agitation or retardation noted Speech:clear, normal rate/rhythm/volume, spontaneous Thought process:mostly linear Thought content:no overt psychosis, wanting only oral meds but clearly not compliant with them Mood: okay Affect: congruent SI:none HI:none VH/AH:no overt signs Delusions:no overt delusional content noted or reported. Insight/judgment:poor x 2. Memory/cog: alert, oriented x 3. Patient Appearance: Appropriate Patient Orientation: Person, Place, Time and Situation Level of Consciousness: Awake, Restless and Alert Patient Behavior: Talkative, Hyperactive, Cooperative, Restless, Anxious, Distractible, Good Eye Contact and Impulsive Mood Description: Labile, Apprehensive and Expansive Affect Description: Labile Patient Cognition Impaired: Yes Ability to Follow Directions: Fair Speech Pattern: Perseverating, Spontaneous Speech, Soft-Spoken and Pressured (mild) Memory Description: Episodic Impaired Diagnostics Vital Signs (24Hr): Vital Signs - 24 hr 05/03/22 21:48 05/04/22 09:10 05/04/22 18:00 Temperature 97.4 F 97.1 F 98.1 F Pulse Rate 65 84 64 Respiratory Rate 18 20 16 Blood Pressure 119/59 L 119/58 L 124/59 L Pulse Oximetry 98 99 97 Oxygen Delivery Method Room Air Room Air Room Air BMI result Body Mass Index 23.3 Medications Medications Current Medications Acetaminophen (Acetaminophen 325 Mg Tablet) 650 mg PO Q6H PRN PRN Reason: Headache/Pain Mild Scale (1-3) Al Hydroxide/Mg Hydroxide (Magnesium Hydrox/Alum Hydrox 30 Ml Oral.Susp) 30 ml PO Q6H PRN PRN Reason: Heartburn/Nausea Benztropine Mesylate (Benztropine Mesylate 0.5 Mg Tablet) 0.5 mg PO BID [facility] Last Admin: 05/04/22 20:08 Dose: 0.5 mg Buspirone HCl (Buspirone Hcl 5 Mg Tablet) 15 mg PO TID PRN PRN Reason: anxiety Last Admin: 05/04/22 20:18 Dose: 15 mg Haloperidol (Haloperidol 5 Mg Tablet) 5 mg PO BID [facility] Last Admin: 05/04/22 20:08 Dose: 5 mg Haloperidol Lactate (Haloperidol Lactate 5 Mg/Ml Vial) 5 mg IM BID PRN PRN Reason: if refuses oral per marissa Hydroxyzine HCl (Hydroxyzine Hcl 50 Mg Tablet) 50 mg PO Q6H PRN PRN Reason: Anxiety Last Admin: 05/04/22 16:03 Dose: 50 mg Magnesium Hydroxide (Milk Of Magnesia 30 Ml Oral.Susp) 30 ml PO DAILY PRN PRN Reason: Constipation Trazodone HCl (Trazodone Hcl 50 Mg Tablet) 50 mg PO BEDTIME PRN PRN Reason: insomnia Last Admin: 05/03/22 23:01 Dose: 50 mg Allergies Allergies Allergy/AdvReac Type Severity Reaction Status Date / Time cefaclor [From [facility]] Allergy Unknown RASH Verified 08/14/20 11:58 penicillin Allergy Unknown Unknown Uncoded 08/05/20 11:19 Assessment & Plan Assessment & Plan (1) Schizoaffective disorder, bipolar type: Status: Acute Code(s): F25.0 - Schizoaffective disorder, bipolar type (2) PTSD (post-traumatic stress disorder): Status: Acute Code(s): F43.10 - Post-traumatic stress disorder, unspecified Plan 26 yo male, history of PTSD, schizoaffective disorder-bipolar type, recent M5 admission, presents from his residence with reports of medication non-compliance (Carlitos's in place) with resulting verbal aggression, impulsive aggression to staff of his care home and peers. Pt recently admitted to [facility] M5 04/15-. Stopped meds per report on discharge. 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 Discussed his Carlitos's options and he has decided Haldol is his best choice after a full review of Holli with pt. Pt asks that we return his dose to 10 mg bid (effective by history) and asks that his next Carlitos's review be given the option of a Geodon trial due to increase in weight neutrality. Pt has been active on the unit and triggering to some of the more decompensated peers-encouraging boxing with them, running, and triggering of agitaiton in others. He has responded when limits were set and explanations were given, although he does report feeling it is h umorous to escalate his peers and that he does enjoy it. Team has decided to do a move to M3 later today. Plan: 1. Start ODONNELL of haldol, continue oral dose of haldol 5mg po BID (back up IM ordered per marissa). I worried that if d/c again on oral meds with no ODONNELL he will stop and return to hospital soon. Haldol on ann. HAldol has no weight gain. 2. obtain collateral information 3. Aftercare planning. 05/03: Increase Vistaril and Buspar. Continue other meds the same. 05/04: No med adjustments. Not sure if patient's complaints about haldol are unique or they happen with other antipsychotic medications. Will defer any changes to primary team to investigate if other antipsychotcs were better tolerated and patient was adherent to those or not. I spent minutes with the patient and/or on the patient floor today, greater than?50% of which was spent counseling/coordinating care. Reason for contiued inpatient stay Substantial Risk for: inability to function and rapid decompensation
[2022-05-04 18:00] VITALS: BP 124/59; PULSE 64; RESP 16; TEMP 36.7; O2SAT 97
[2022-05-04] MEDS: traZODone HCL 50 MG TABLET PO (22:03)
[2022-05-05] MEDS: HaloperidoL 5 MG TABLET PO (08:07)
[2022-05-05] MEDS: Benztropine Mesylate 0.5 MG TABLET PO (08:07)
[2022-05-05 08:09] VITALS: BP 112/53; PULSE 56; RESP 17; TEMP 36.6; O2SAT 98
[2022-05-05] MEDS: busPIRone HCl 5 MG TABLET 15 MG PO (10:07)
[2022-05-05] MEDS: hydrOXYzine HCL 50 MG TABLET PO (10:07)
[2022-05-05] MEDS: Gabapentin 300 MG CAPSULE PO ×2 (14:37→20:06)
--- NOTE | 2022-05-05 16:02 | P.PNPSI_ITS ---
Subjective Subjective Date of Service: 05/05/22 Reason For Visit: PTSD, Schizoaffective Disorder, bipolar type Interim History: pt states he does not like how he feels on haldol and wants to switch to something else. carlitos's order reviewed, invega is the only other option there with ODONNELL, which pt also wants. haldol DCed and invega started. pt also c/o anxiety, agrees to trial of gabapentin. per staff, attending groups but not participating. c/o inadequate sleep. anx 4, dep 0. RIS. appears to be sleeping through the NOC. c/o meds making him sedated. Mental Status Exam Mental Status Exam Narrative: Pt is alert and oriented; behavior is cooperative, friendly and calm; patient is not in distress; dressed in casual attire; adequate hygiene; eye contact appropriate; Speech is normal rate, volume and prosody and not pressured; no psychomotor agitation/retardation present; thought process is organized and goal directed; Thought content is WNL and pertinent to relevant topics and without any delusional content, paranoid ideations or grandiosity; no SI/HI/AVH expressed. There is no evidence of perceptual disturbance. Patients insight and judgment appear fair. Diagnostics Vital Signs (24Hr): Vital Signs - 24 hr 05/04/22 18:00 05/05/22 08:09 Temperature 98.1 F 97.9 F Pulse Rate 64 56 Respiratory Rate 16 17 Blood Pressure 124/59 L 112/53 L Pulse Oximetry 97 98 Oxygen Delivery Method Room Air Room Air BMI result Body Mass Index 23.3 Medications Medications Current Medications Acetaminophen (Acetaminophen 325 Mg Tablet) 650 mg PO Q6H PRN PRN Reason: Headache/Pain Mild Scale (1-3) Al Hydroxide/Mg Hydroxide (Magnesium Hydrox/Alum Hydrox 30 Ml Oral.Susp) 30 ml PO Q6H PRN PRN Reason: Heartburn/Nausea Benztropine Mesylate (Benztropine Mesylate 0.5 Mg Tablet) 0.5 mg PO BID [facility] Last Admin: 05/05/22 08:07 Dose: 0.5 mg Gabapentin (Gabapentin 300 Mg Capsule) 300 mg PO Q4H PRN PRN Reason: anxiety Last Admin: 05/05/22 14:37 Dose: 300 mg Haloperidol Lactate (Haloperidol Lactate 5 Mg/Ml Vial) 5 mg IM BID PRN PRN Reason: if refuses oral per marissa Magnesium Hydroxide (Milk Of Magnesia 30 Ml Oral.Susp) 30 ml PO DAILY PRN PRN Reason: Constipation Paliperidone (Paliperidone Er 3 Mg Tab.Er.24) 3 mg PO BEDTIME [facility] Trazodone HCl (Trazodone Hcl 50 Mg Tablet) 50 mg PO BEDTIME PRN PRN Reason: insomnia Last Admin: 05/04/22 22:03 Dose: 50 mg Allergies Allergies Allergy/AdvReac Type Severity Reaction Status Date / Time cefaclor [From [facility]] Allergy Unknown RASH Verified 08/14/20 11:58 penicillin Allergy Unknown Unknown Uncoded 08/05/20 11:19 Assessment & Plan Assessment & Plan (1) Schizoaffective disorder, bipolar type: Status: Acute Code(s): F25.0 - Schizoaffective disorder, bipolar type (2) PTSD (post-traumatic stress disorder): Status: Acute Code(s): F43.10 - Post-traumatic stress disorder, unspecified Plan 26 yo male, history of PTSD, schizoaffective disorder-bipolar type, recent M5 admission, presents from his residence with reports of medication non-compliance (Carlitos's in place) with resulting verbal aggression, impulsive aggression to staff of his correction and peers. Pt recently admitted to [facility] M5 04/15-. Stopped meds per report on discharge. 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 Discussed his Carlitos's options and he has decided Haldol is his best choice after a full review of Holli with pt. Pt asks that we return his dose to 10 mg bid (effective by history) and asks that his next Carlitos's review be given the option of a Geodon trial due to increase in weight neutrality. Pt has been active on the unit and triggering to some of the more decompensated peers-encouraging boxing with them, running, and triggering of agitaiton in others. He has responded when limits were set and explanations were given, although he does report feeling it is humorous to escalate his peers and that he does enjoy it. Team has decided to do a move to later today. Plan: 1. Start ODONNELL of haldol, continue oral dose of haldol 5mg po BID (back up IM ordered per ann). I worried that if d/c again on oral meds with no ODONNELL he will stop and return to hospital soon. Haldol on ann. HAldol has no weight gain. 2. obtain collateral information 3. Aftercare planning. 05/03: Increase Vistaril and Buspar. Continue other meds the same. 05/04: No med adjustments. Not sure if patient's complaints about haldol are unique or they happen with other antipsychotic medications. Will defer any c hanges to primary team to investigate if other antipsychotcs were better tolerated and patient was adherent to those or not. 05/05: DC haldol at pt request, start invega with plan to use sustenna if PO tolerated. added gabapentin 300 mg Q4H PRN anxiety. I spent ___35___ minutes with the patient and/or on the patient floor today, greater than?50% of which was spent counseling/coordinating care. Reason for contiued inpatient stay Substantial Risk for: harm to self, harm to others, inability to function and rapid decompensation
[2022-05-05 20:00] VITALS: BP 134/79; PULSE 68; RESP 18; TEMP 36.6; O2SAT 98
[2022-05-05] MEDS: Paliperidone ER 3 MG TAB.ER.24 PO (20:07)
[2022-05-05] MEDS: traZODone HCL 50 MG TABLET PO (20:09)
[2022-05-06 08:00] VITALS: BP 109/62; PULSE 60; RESP 17; TEMP 36.4; O2SAT 95
[2022-05-06] MEDS: Gabapentin 300 MG CAPSULE PO (08:01)
[2022-05-06] MEDS: Gabapentin 400 MG CAPSULE PO ×3 (14:56→23:25)
--- NOTE | 2022-05-06 16:06 | P.PNPSI_ITS ---
Subjective Subjective Date of Service: 05/06/22 Reason For Visit: PTSD, Schizoaffective Disorder, bipolar type Interim History: calm, cooperative. feels well on invega. amenable to increasing dose to 3 BID, also asks for gabapentin PRN dosing to be increased. MD increases it from 300 m g to 400 mg. per staff, anx 5. social. restless sleep. visible. guarded, safe. pleasant, polite. Mental Status Exam Mental Status Exam Narrative: Pt is alert and oriented; behavior is cooperative, friendly and calm; patient is not in distress; dressed in casual attire; adequate hygiene; eye contact appropriate; Speech is normal rate, volume and prosody and not pressured; no psychomotor agitation/retardation present; thought process is organized and goal directed; Thought content is WNL and pertinent to relevant topics and without any delusional content, paranoid ideations or grandiosity; no SI/HI/AVH expressed. There is no evidence of perceptual disturbance. Patients insight and judgment appear fair. Diagnostics Vital Signs (24Hr): Vital Signs - 24 hr 05/05/22 20:00 05/06/22 08:00 Temperature 97.8 F 97.6 F Pulse Rate 68 60 Respiratory Rate 18 17 Blood Pressure 134/79 109/62 Pulse Oximetry 98 95 Oxygen Delivery Method Room Air Room Air BMI result Body Mass Index 23.3 Medications Medications Current Medications Acetaminophen (Acetaminophen 325 Mg Tablet) 650 mg PO Q6H PRN PRN Reason: Headache/Pain Mild Scale (1-3) Al Hydroxide/Mg Hydroxide (Magnesium Hydrox/Alum Hydrox 30 Ml Oral.Susp) 30 ml PO Q6H PRN PRN Reason: Heartburn/Nausea Benztropine Mesylate (Benztropine Mesylate 0.5 Mg Tablet) 0.5 mg PO BID [facility] Last Admin: 05/06/22 08:03 Dose: Not Given Gabapentin (Gabapentin 400 Mg Capsule) 400 mg PO Q4H PRN PRN Reason: anxiety Last Admin: 05/06/22 14:56 Dose: 400 mg Haloperidol Lactate (Haloperidol Lactate 5 Mg/Ml Vial) 5 mg IM BID PRN PRN Reason: if refuses oral per marissa Magnesium Hydroxide (Milk Of Magnesia 30 Ml Oral.Susp) 30 ml PO DAILY PRN PRN Reason: Constipation Paliperidone (Paliperidone Er 3 Mg Tab.Er.24) 3 mg PO BID [facility] Trazodone HCl (Trazodone Hcl 50 Mg Tablet) 50 mg PO BEDTIME PRN PRN Reason: insomnia Last Admin: 05/05/22 20:09 Dose: 50 mg Allergies Allergies Allergy/AdvReac Type Severity Reaction Status Date / Time cefaclor [From [facility]] Allergy Unknown RASH Verified 08/14/20 11:58 penicillin Allergy Unknown Unknown Uncoded 08/05/20 11:19 Assessment & Plan Assessment & Plan (1) Schizoaffective disorder, bipolar type: Status: Acute Code(s): F25.0 - Schizoaffective disorder, bipolar type (2) PTSD (post-traumatic stress disorder): Status: Acute Code(s): F43.10 - Post-traumatic stress disorder, unspecified Plan 26 yo male, history of PTSD, schizoaffective disorder-bipolar type, recent M5 admission, presents from his residence with reports of medication non-compliance (Carlitos's in place) with resulting verbal aggression, impulsive aggression to staff of his nursing home and peers. Pt recently admitted to [facility] 04/15-. Stopped meds per report on discharge. 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 Discussed his Carlitos's options and he has decided Haldol is his best choice after a full review of Holli with pt. Pt asks that we return his dose to 10 mg bid (effective by history) and asks that his next Carlitos's review be given the option of a Geodon trial due to increase in weight neutrality. Pt has been active on the unit and triggering to some of the more decompensated peers-encouraging boxing with them, running, and triggering of agitaiton in others. He has responded when limits were set and explanations were given, although he does report feeling it is humorous to escalate his peers and that he does enjoy it. Team has decided to do a move to M3 later today. Plan: 1. Start ODONNELL of haldol, continue oral dose of haldol 5mg po BID (back up IM ordered per marissa). I worried that if d/c again on oral meds with no ODONNELL he will stop and return to hospital soon. Haldol on ann. HAldol has no weight gain. 2. obtain collateral information 3. Aftercare planning. 05/03: Increase Vistaril and Buspar. Continue other meds the same. 05/04: No med adjustments. Not sure if patient's complaints about haldol are unique or they happen with other antipsychotic medications. Will defer any changes to primary team to investigate if other antipsychotcs were better tolerated and patient was adherent to those or not. 05/05: DC haldol at pt request, start invega with plan to use sustenna if PO tolerated. added gabapentin 300 mg Q4H PRN anxiety. 05/06: increase invega to 3 BID. increase gabapentin PRN to 400 mg each. no adverse reaction to invega. I spent __25____ minutes with the patient and/or on the patient floor today, greater than?50% of which was spent counseling/coordinating care. Reason for contiued inpatient stay Substantial Risk for: inability to function and rapid decompensation
[2022-05-06] MEDS: Paliperidone ER 3 MG TAB.ER.24 PO (20:58)
[2022-05-06] MEDS: traZODone HCL 50 MG TABLET PO (20:58)
[2022-05-06 21:01] VITALS: BP 122/71; PULSE 90; TEMP 36.6; O2SAT 97
[2022-05-07] MEDS: Gabapentin 400 MG CAPSULE PO ×2 (03:26→10:13)
[2022-05-07] MEDS: Magnesium Hydrox/Alum Hydrox 30 ML ORAL.SUSP PO (04:58)
[2022-05-07 05:00] VITALS: BP 124/78; PULSE 77; TEMP 36.2; O2SAT 97
[2022-05-07] MEDS: Paliperidone ER 3 MG TAB.ER.24 PO ×3 (08:19→23:38)
[2022-05-07] MEDS: Benztropine Mesylate 0.5 MG TABLET PO (08:19)
[2022-05-07 08:22] VITALS: BP 133/75; PULSE 65; RESP 18; TEMP 36.6; O2SAT 100
[2022-05-07] MEDS: LORazepam 1 MG TABLET PO (11:02)
[2022-05-07] MEDS: LORazepam 1 MG TABLET 2 MG PO ×2 (13:50→23:38)
--- NOTE | 2022-05-07 14:53 | P.PNPSI_ITS ---
Subjective Subjective Date of Service: 05/07/22 Reason For Visit: PTSD, Schizoaffective Disorder, bipolar type Interim History: calm, cooperative earlier in day. more agitated later. c/o anxiety and asking for more helpful medication. discussion held re use of ativan, ultimately pt agrees to its use while here. he is hesitant bcse he does not want to get addicted to anything. took one mg of ativan and reported no change. later staff reporting pt hypersexual, asking for condoms, saying he is going to have sex with someone here, moira. advances PRNs to be ativan 2 mg and invega 3 mg, which was given to pt later in the afternoon. per staff, yesterday was pleasant with 3/10 anxiety. eating and sleeping well. attending groups. talkative. some agitation last night after female staff did not reciprocate his warm feelings. did not sleep at all, saying things like, i'm the strongest man alive. exercising in the sensory room a lot. Mental Status Exam Mental Status Exam Narrative: Pt is alert and oriented; behavior is cooperative, friendly and calm; dressed in casual attire; adequate hygiene; eye contact appropriate; Speech is normal rate, volume and prosody and not pressured; some PMA of fidgetiness; thought process is organized and goal directed; Thought content is WNL and pertinent to relevant topics and without any delusional content, paranoid ideations or grandiosity; no SI/HI/AVH expressed. There is no evidence of perceptual disturbance. Patients insight and judgment impaired. Diagnostics Vital Signs (24Hr): Vital Signs - 24 hr 05/06/22 21:01 05/07/22 05:00 05/07/22 08:22 Temperature 97.9 F 97.2 F 97.8 F Pulse Rate 90 77 65 Respiratory Rate 18 Blood Pressure 122/71 124/78 133/75 Pulse Oximetry 97 97 100 Oxygen Delivery Method Room Air Room Air Room Air BMI result Body Mass Index 23.3 Medications Medications Current Medications Acetaminophen (Acetaminophen 325 Mg Tablet) 650 mg PO Q6H PRN PRN Reason: Headache/Pain Mild Scale (1-3) Al Hydroxide/Mg Hydroxide (Magnesium Hydrox/Alum Hydrox 30 Ml Oral.Susp) 30 ml PO Q6H PRN PRN Reason: Heartburn/Nausea Last Admin: 05/07/22 04:58 Dose: 30 ml Benztropine Mesylate (Benztropine Mesylate 0.5 Mg Tablet) 0.5 mg PO BID [facility] Last Admin: 05/07/22 08:19 Dose: 0.5 mg Gabapentin (Gabapentin 400 Mg Capsule) 400 mg PO Q4H PRN PRN Reason: anxiety Last Admin: 05/07/22 10:13 Dose: 400 mg Haloperidol Lactate (Haloperidol Lactate 5 Mg/Ml Vial) 5 mg IM BID PRN PRN Reason: if refuses oral per ann Lorazepam (Lorazepam 1 Mg Tablet) 2 mg PO Q6H PRN PRN Reason: agitation Magnesium Hydroxide (Milk Of Magnesia 30 Ml Oral.Susp) 30 ml PO DAILY PRN PRN Reason: Constipation Paliperidone (Paliperidone Er 3 Mg Tab.Er.24) 3 mg PO BID [facility] Last Admin: 05/07/22 08:19 Dose: 3 mg Paliperidone (Paliperidone Er 3 Mg Tab.Er.24) 3 mg PO Q6H PRN PRN Reason: agitation Last Admin: 05/07/22 14:30 Dose: 3 mg Trazodone HCl (Trazodone Hcl 50 Mg Tablet) 50 mg PO BEDTIME PRN PRN Reason: insomnia Last Admin: 05/06/22 20:58 Dose: 50 mg Allergies Allergies Allergy/AdvReac Type Severity Reaction Status Date / Time cefaclor [From [facility]] Allergy Unknown RASH Verified 08/14/20 11:58 penicillin Allergy Unknown Unknown Uncoded 08/05/20 11:19 Assessment & Plan Assessment & Plan (1) Schizoaffective disorder, bipolar type: Status: Acute Code(s): F25.0 - Schizoaffective disorder, bipolar type (2) PTSD (post-traumatic stress disorder): Status: Acute Code(s): F43.10 - Post-traumatic stress disorder, unspecified Plan 26 yo male, history of PTSD, schizoaffective disorder-bipolar type, recent M5 admission, presents from his residence with reports of medication non-compliance (Carlitos's in place) with resulting verbal aggression, impulsive aggression to s taff of his nursing home and peers. Pt recently admitted to [facility] M5 04/15-. Stopped meds per report on discharge. 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 Discussed his Carlitos's options and he has decided Haldol is his best choice after a full review of Holli with pt. Pt asks that we return his dose to 10 mg bid (effective by history) and asks that his next Carlitos's review be given the option of a Geodon trial due to increase in weight neutrality. Pt has been active on the unit and triggering to some of the more decompensated peers-encouraging boxing with them, running, and triggering of agitaiton in others. He has responded when limits were set and explanations were given, although he does report feeling it is humorous to escalate his peers and that he does enjoy it. Team has decided to do a move to M3 later today. Plan: 1. Start ODONNELL of haldol, continue oral dose of haldol 5mg po BID (back up IM ordered per marissa). I worried that if d/c again on oral meds with no ODONNELL he will stop and return to hospital soon. Haldol on ann. HAldol has no weight gain. 2. obtain collateral information 3. Aftercare planning. 05/03: Increase Vistaril and Buspar. Continue other meds the same. 05/04: No med adjustments. Not sure if patient's complaints about haldol are unique or they happen with other antipsychotic medications. Will defer any changes to primary team to investigate if other antipsychotcs were better tolerated and patient was adherent to those or not. 05/05: DC haldol at pt request, start invega with plan to use sustenna if PO tolerated. added gabapentin 300 mg Q4H PRN anxiety. 05/06: increase invega to 3 BID. increase gabapentin PRN to 400 mg each. no adverse reaction to invega. 05/07: devolving into bill. no sleep overnight, hypersexual. add ativan 2 mg and invega 3 mg Q6H PRN. I spent ___35___ minutes with the patient and/or on the patient floor today, greater than?50% of which was spent counseling/coordinating care. Reason for contiued inpatient stay Substantial Risk for: inability to function and rapid decompensation
[2022-05-07 18:00] VITALS: RESP 16
[2022-05-08 10:24] VITALS: BP 100/53; PULSE 65; RESP 16; TEMP 36.6; O2SAT 99
[2022-05-08] MEDS: Benztropine Mesylate 0.5 MG TABLET PO ×2 (10:27→20:39)
[2022-05-08] MEDS: Paliperidone ER 3 MG TAB.ER.24 PO (10:27)
[2022-05-08] MEDS: Sennosides/Docusate Sodium TABLET 2 TAB PO ×2 (11:32→20:41)
--- NOTE | 2022-05-08 13:44 | HO.PSYCHPN ---
Subjective Subjective Date of Service: 05/08/22 Reason For Visit: PTSD, Schizoaffective Disorder, bipolar type Interim History: pt seen in his room, lying on his bed shortly after having vomited. he reports he vomited yesterday at 0500 out of the blue, then felt fine again until immediately before vomiting again this morning around 11. states it has been 3 days since BM. agreeable to start senna/colace and hold cogentin for now. asking about DC to respite some time next week. per staff, restless, hypersexual yesterday. settled after ativan 2 and invega three in the afternoon. slept overnight. Mental Status Exam Mental Status Exam Narrative: Pt is alert and oriented; behavior is cooperative, friendly and calm; dressed in casual attire; adequate hygiene; eye contact appropriate; Speech is normal rate, volume and prosody and not pressured; no PMA/PMR; thought process is organized and goal directed; Thought content is WNL and pertinent to relevant topics and without any delusional content, paranoid ideations or grandiosity; no SI/HI/AVH expressed. There is no evidence of perceptual disturbance. Patients insight and judgment impaired. Diagnostics Vital Signs (24Hr): Vital Signs - 24 hr 05/07/22 18:00 05/08/22 10:24 Temperature 97.8 F Pulse Rate 65 Respiratory Rate 16 16 Blood Pressure 100/53 L Pulse Oximetry 99 BMI result Body Mass Index 23.3 Medications Medications Current Medications Acetaminophen (Acetaminophen 325 Mg Tablet) 650 mg PO Q6H PRN PRN Reason: Headache/Pain Mild Scale (1-3) Al Hydroxide/Mg Hydroxide (Magnesium Hydrox/Alum Hydrox 30 Ml Oral.Susp) 30 ml PO Q6H PRN PRN Reason: Heartburn/Nausea Last Admin: 05/07/22 04:58 Dose: 30 ml Benztropine Mesylate (Benztropine Mesylate 0.5 Mg Tablet) 0.5 mg PO BEDTIME [facility] Gabapentin (Gabapentin 400 Mg Capsule) 400 mg PO Q4H PRN PRN Reason: anxiety Last Admin: 05/07/22 10:13 Dose: 400 mg Haloperidol Lactate (Haloperidol Lactate 5 Mg/Ml Vial) 5 mg IM BID PRN PRN Reason: if refuses oral per marissa Lorazepam (Lorazepam 1 Mg Tablet) 2 mg PO Q6H PRN PRN Reason: agitation Last Admin: 05/07/22 23:38 Dose: 2 mg Magnesium Hydroxide (Milk Of Magnesia 30 Ml Oral.Susp) 30 ml PO DAILY PRN PRN Reason: Constipation Paliperidone (Paliperidone Er 3 Mg Tab.Er.24) 3 mg PO Q6H PRN PRN Reason: agitation Last Admin: 05/07/22 14:30 Dose: 3 mg Paliperidone (Paliperidone Er 3 Mg Tab.Er.24) 3 mg PO DAILY [facility] Paliperidone (Paliperidone Er 6 Mg Tab.Er.24) 6 mg PO BEDTIME [facility] Senna/Docusate Sodium (Sennosides/Docusate Sodium Tablet) 2 tab PO BID [facility] Last Admin: 05/08/22 11:32 Dose: 2 tab Trazodone HCl (Trazodone Hcl 50 Mg Tablet) 50 mg PO BEDTIME PRN PRN Reason: insomnia Last Admin: 05/06/22 20:58 Dose: 50 mg Allergies Allergies Allergy/AdvReac Type Severity Reaction Status Date / Time cefaclor [From [facility]] Allergy Unknown RASH Verified 08/14/20 11:58 penicillin Allergy Unknown Unknown Uncoded 08/05/20 11:19 Assessment & Plan Assessment & Plan (1) Schizoaffective disorder, bipolar type: Status: Acute Code(s): F25.0 - Schizoaffective disorder, bipolar type (2) PTSD (post-traumatic stress disorder): Status: Acute Code(s): F43.10 - Post-traumatic stress disorder, unspecified Plan 26 yo male, history of PTSD, schizoaffective disorder-bipolar type, recent M5 admission, presents from his residence with reports of medication non-compliance (Carlitos's in place) with resulting verbal aggression, impulsive aggression to staff of his [facility] and peers. Pt recently admitted to [facility] 04/15-. Stopped meds per report on discharge. 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 Discussed his Carlitos's options and he has decided Haldol is his best choice after a full review of Holli with pt. Pt asks that we return his dose to 10 mg bid (effective by history) and asks that his next Carlitos's review be given the option of a Geodon trial due to increase in weight neutrality. Pt has been active on the unit and triggering to some of the more decompensated peers-encouraging boxing with them, running, and triggering of agitaiton in others. He has responded when limits were set and explanations were given, although he does report feeling it is humorous to escalate his peers and that he does enjoy it. Team has decided to do a move to later today. Plan: 1. Start ODONNELL of haldol, continue oral dose of haldol 5mg po BID (back up IM ordered per marissa). I worried that if d/c again on oral meds with no ODONNELL he will stop and return to hospital soon. Haldol on ann. HAldol has no weight gain. 2. obtain collateral information 3. Aftercare planning. 05/03: Increase Vistaril and Buspar. Continue other meds the same. 05/04: No med adjustments. Not sure if patient's complaints about haldol are unique or they happen with other antipsychotic medications. Will defer any changes to primary team to investigate if other antipsychotcs were better tolerated and patient was adherent to those or not. 05/05: DC haldol at pt request, start invega with plan to use sustenna if PO tolerated. added gabapentin 300 mg Q4H PRN anxiety. 05/06: increase invega to 3 BID. increase gabapentin PRN to 400 mg each. no adverse reaction to invega. 05/07: devolving into bill. no sleep overnight, hypersexual. add ativan 2 mg and invega 3 mg Q6H PRN. 05/08: got 9 mg invega yesterday and 3 mg ativan, slept many hours and less manic today. increased scheduled invega to 3/6. vomited x2 in the past 2 days. no BM x 3 days. starting senna/colace and decreasing cogentin to 0.5 mg QHS from 0.5 mg BID. I spent ___25___ minutes with the patient and/or on the patient floor today, greater than?50% of which was spent counseling/coordinating care. Reason for contiued inpatient stay Substantial Risk for: inability to function and rapid decompensation
[2022-05-08] MEDS: Acetaminophen 325 MG TABLET 650 MG PO (13:55)
[2022-05-08] MEDS: Ondansetron ODT 4 MG TAB.RAPDIS TRANSLINGU ×2 (14:37→20:41)
[2022-05-08 18:00] VITALS: BP 104/53; PULSE 97; RESP 16; TEMP 36.7; O2SAT 97
[2022-05-08] MEDS: traZODone HCL 50 MG TABLET PO (20:41)
[2022-05-08] MEDS: Paliperidone ER 6 MG TAB.ER.24 PO (20:41)
[2022-05-08] MEDS: LORazepam 1 MG TABLET 2 MG PO (20:46)
[2022-05-09 07:50] VITALS: BP 110/65; PULSE 70; RESP 16; TEMP 36.2; O2SAT 99
[2022-05-09] MEDS: Paliperidone ER 3 MG TAB.ER.24 PO (08:43)
[2022-05-09] MEDS: Gabapentin 400 MG CAPSULE PO (08:46)
[2022-05-09] MEDS: Sennosides/Docusate Sodium TABLET 2 TAB PO (08:48)
[2022-05-09] MEDS: LORazepam 1 MG TABLET 2 MG PO (12:09)
[2022-05-09] MEDS: Lithium Carbonate ER 450 MG TABLET.ER PO ×2 (12:09→22:30)
[2022-05-09 12:27] LABS: MANUAL DIFF FLAG NO
[2022-05-09 12:33] LABS: Basophils Percent Auto 0.4 % (0-2); Eosinophils Percent Auto 0.4 % (0-4); Hemoglobin 14.1 g/dl (14.0-18.0); Imm Gran Abs Auto 0.03 X10*3/uL (0.00-0.03); Imm Gran Pct Auto 0.4 % (0.0-0.4); Lymphocytes Absolute Auto 1.6 X10*3/uL (1.2-4.9); Lymphocytes Percent Auto 19.2 % (20-40); Mean Corpuscular HGB Conc 32.8 g/dl (31.0-36.0); Mean Corpuscular Hemoglobin 26.4 pg (27.0-33.0); Mean Corpuscular Volume 80.5 fL (80.0-98.0); Mean Platelet Volume 10.2 fL (9.4-12.4); Monocytes Absolute Auto 0.5 X10*3/uL (0.1-1.2); Monocytes Percent Auto 6.2 % (2-11); Neutrophils Absolute Auto 6.2 x10*3/uL (2.0-8.3); Neutrophils Percent Auto 73.4 % (45-73); Platelet Count 209 X10*3/uL (160-400); Red Blood Count 5.34 X10*6/uL (4.60-5.80); Red Cell Distribution Width 16.6 % (11.0-16.0); White Blood Count 8.4 X10*3/uL (4.8-10.8)
[2022-05-09 12:52] LABS: Alanine Aminotransferase 21 U/L (0-40); Albumin Level 4.7 g/dL (3.5-5.0); Alkaline Phosphatase 75 U/L (39-117); Anion Gap 15 (12-20); Aspartate Amino Transferase 27 U/L (5-37); Bilirubin Direct < 0.2 mg/dL (0.0-0.5); Bilirubin Total 0.3 mg/dL (0.0-1.0); Blood Urea Nitrogen 9 mg/dL (9-16); Calcium 9.3 mg/dL (8.4-10.2); Carbon Dioxide 24 mmol/L (22-29); Chloride 105 mmol/L (96-108); Creatinine Clr Calc Pharmacy 122.2; Estimated Glomerular Filt Rate > 60; Glucose Random 94 mg/dL (60-115); Potassium 3.8 mmol/L (3.3-5.1); Sodium 140 mmol/L (135-145); Total Protein 7.3 g/dL (6.5-8.0)
[2022-05-09 13:33] LABS: COVID-19 Test Negative (Negative); IDNOW Serial# 16C4AD1C
[2022-05-09] MEDS: LORazepam 1 MG TABLET PO (14:17)
[2022-05-09 14:34] LABS: Appearance Urine CLEAR; Color Urine YELLOW; Glucose Urine UA NEG (NEG); Leukocyte Esterase Urine NEG (NEG); Nitrite Urine NEG (NEG); Specific Gravity - Urine <= 1.005 (1.005-1.025); Urine Blood NEG (NEG); Urine Ketones NEG (NEG); Urine Protein NEG (NEG-TRACE)
--- NOTE | 2022-05-09 15:06 | HO.PSYCHPN ---
Subjective Subjective Date of Service: 05/09/22 Reason For Visit: PTSD, Schizoaffective Disorder, bipolar type Interim History: calm, cooperative early in day. c/o severe anxiety not relieved by ativan 2 mg and invega 3 mg. agrees to trial of lithium for anxiety (bill), more likely in context of recent very hypersexual behaviors and sleep-wake cycle disturbance. denies ever having tried mood stabilizers before. was ordered 3 mg ativan and then became disinhibited and started asking female staff for sex, offering to pay money. thorazine and room/person search ordered. also vomited again today, medicine consult ordered. per staff, vomited throughout the day yesterday. not attending groups. restless. vomited eves as well. Mental Status Exam Mental Status Exam Narrative: Pt is alert and oriented; behavior is cooperative, friendly and calm; dressed in casual attire; adequate hygiene; eye contact appropriate; Speech is normal rate, volume and prosody and not pressured; no PMA/PMR; thought process is organized and goal directed; Thought content is WNL and pertinent to relevant topics and without any delusional content, paranoid ideations or grandiosity; no SI/HI/AVH expressed. There is no evidence of perceptual disturbance. Patients insight and judgment impaired. Diagnostics Vital Signs (24Hr): Vital Signs - 24 hr 05/08/22 18:00 05/09/22 07:50 Temperature 98.1 F 97.2 F Pulse Rate 97 70 Respiratory Rate 16 16 Blood Pressure 104/53 L 110/65 Pulse Oximetry 97 99 Oxygen Delivery Method Room Air Room Air BMI result Body Mass Index 23.3 Labs Results: 05/09/22 12:21 05/09/22 12:21 Labs: Laboratory Results - last 48 hr 05/09/22 05/09/22 05/09/22 12:15 12:20 12:21 WBC 8.4 RBC 5.34 Hgb 14.1 Hct 43.0 MCV 80.5 MCH 26.4 L MCHC 32.8 RDW 16.6 H Plt Count 209 MPV 10.2 Immature Gran % (Auto) 0.4 Neut % (Auto) 73.4 H Lymph % (Auto) 19.2 L [place] % (Auto) 6.2 Eos % (Auto) 0.4 Baso % (Auto) 0.4 Lymph # (Auto) 1.6 [place] # (Auto) 0.5 Eos # (Auto) 0.0 Baso # (Auto) 0.0 Abs Immat Gran (auto) 0.03 Absolute Neuts (auto) 6.2 Absolute Nucleated RBC 0.000 Nucleated RBC % (auto) 0.0 Sodium Potassium Chloride Carbon Dioxide Anion Gap BUN Creatinine Estim Creat Clear Calc Estimated GFR Random Glucose Calcium Total Bilirubin Direct Bilirubin AST ALT Alkaline Phosphatase Total Protein Albumin Urine Color YELLOW Urine Appearance CLEAR Urine pH 7.0 Ur Specific [place] <= 1.005 Urine Protein NEG Urine Glucose (UA) NEG Urine Ketones NEG Urine Blood NEG Urine Nitrite NEG Ur Leukocyte Esterase NEG COVID-19 (DIVYA) Negative COVID-19 Clin Com See Note 05/09/22 12:21 WBC RBC Hgb Hct MCV MCH MCHC RDW Plt Count MPV Immature Gran % (Auto) Neut % (Auto) Lymph % (Auto) [place] % (Auto) Eos % (Auto) Baso % (Auto) Lymph # (Auto) [place] # (Auto) Eos # (Auto) Baso # (Auto) Abs Immat Gran (auto) Absolute Neuts (auto) Absolute Nucleated RBC Nucleated RBC % (auto) Sodium 140 Potassium 3.8 Chloride 105 Carbon Dioxide 24 Anion Gap 15 BUN 9 Creatinine 0.87 Estim Creat Clear Calc 122.2 Estimated GFR > 60 Random Glucose 94 Calcium 9.3 Total Bilirubin 0.3 Direct Bilirubin < 0.2 AST 27 D ALT 21 Alkaline Phosphatase 75 D Total Protein 7.3 Albumin 4.7 Urine Color Urine Appearance Urine pH Ur Specific [place] Urine Protein Urine Glucose (UA) Urine Ketones Urine Blood Urine Nitrite Ur Leukocyte Esterase COVID-19 (DIVYA) COVID-19 Clin Com Medications Medications Current Medications Acetaminophen (Acetaminophen 325 Mg Tablet) 650 mg PO Q6H PRN PRN Reason: Headache/Pain Mild Scale (1-3) Last Admin: 05/08/22 13:55 Dose: 650 mg Al Hydroxide/Mg Hydroxide (Magnesium Hydrox/Alum Hydrox 30 Ml Oral.Susp) 30 ml PO Q6H PRN PRN Reason: Heartburn/Nausea Last Admin: 05/07/22 04:58 Dose: 30 ml Benztropine Mesylate (Benztropine Mesylate 0.5 Mg Tablet) 0.5 mg PO BEDTIME HENRY Last Admin: 05/08/22 20:39 Dose: 0.5 mg Haloperidol Lactate (Haloperidol Lactate 5 Mg/Ml Vial) 5 mg IM BID PRN PRN Reason: if refuses oral per marissa [place] Carbonate ([place] Carbonate Er 450 Mg Tablet.Er) 450 mg PO BID [facility] Last Admin: 05/09/22 12:09 Dose: 450 mg Lorazepam (Lorazepam 1 Mg Tablet) 2 mg PO Q6H PRN PRN Reason: severe agitation Last Admin: 05/09/22 12:09 Dose: 2 mg Lorazepam (Lorazepam 1 Mg Tablet) 1 mg PO Q4H PRN PRN Reason: Anxiety Last Admin: 05/09/22 14:17 Dose: 1 mg Magnesium Hydroxide (Milk Of Magnesia 30 Ml Oral.Susp) 30 ml PO DAILY PRN PRN Reason: Constipation Ondansetron HCl (Ondansetron Odt 4 Mg Tab.Rapdis) 4 mg TRANSLINGU Q6H PRN PRN Reason: Nausea Last Admin: 05/08/22 20:41 Dose: 4 mg Paliperidone (Paliperidone Er 3 Mg Tab.Er.24) 3 mg PO DAILY [facility] Last Admin: 05/09/22 08:43 Dose: 3 mg Paliperidone (Paliperidone Er 6 Mg Tab.Er.24) 6 mg PO BEDTIME [facility] Last Admin: 05/08/22 20:41 Dose: 6 mg Paliperidone (Paliperidone Er 3 Mg Tab.Er.24) 3 mg PO Q6H PRN PRN Reason: Psychosis Senna/Docusate Sodium (Sennosides/Docusate Sodium Tablet) 2 tab PO BID [facility] Last Admin: 05/09/22 08:48 Dose: 2 tab Trazodone HCl (Trazodone Hcl 50 Mg Tablet) 50 mg PO BEDTIME PRN PRN Reason: insomnia Last Admin: 05/08/22 20:41 Dose: 50 mg Allergies Allergies Allergy/AdvReac Type Severity Reaction Status Date / Time cefaclor [From [facility]] Allergy Unknown RASH Verified 08/14/20 11:58 penicillin Allergy Unknown Unknown Uncoded 08/05/20 11:19 Assessment & Plan Assessment & Plan (1) Schizoaffective disorder, bipolar type: Status: Acute Code(s): F25.0 - Schizoaffective disorder, bipolar type (2) PTSD (post-traumatic stress disorder): Status: Acute Code(s): F43.10 - Post-traumatic stress disorder, unspecified Plan 26 yo male, history of PTSD, schizoaffective disorder-bipolar type, recent M5 admission, presents from his residence with reports of medication non-compliance (Carlitos's in place) with resulting verbal aggression, impulsive aggression to staff of his skilled nursing and peers. Pt recently admitted to [facility] M5 04/15-. Stopped meds per report on discharge. 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 Discussed his Carlitos's options and he has decided Haldol is his best choice after a full review of Holli with pt. Pt asks that we return his dose to 10 mg bid (effective by history) and asks that his next Carlitos's review be given the option of a Geodon trial due to increase in weight neutrality. Pt has been active on the unit and triggering to some of the more decompensated peers-encouraging boxing with them, running, and triggering of agitaiton in others. He has responded when limits were set and explanations were given, although he does report feeling it is humorous to escalate his peers and that he does enjoy it. Team has decided to do a move to M3 later today. Plan: 1. Start ODONNELL of haldol, continue oral dose of haldol 5mg po BID (back up IM ordered per ann). I worried that if d/c again on oral meds with no ODONNELL he will stop and return to hospital soon. Haldol on ann. HAldol has no weight gain. 2. obtain collateral information 3. Aftercare planning. 05/03: Increase Vistaril and Buspar. Continue other meds the same. 05/04: No med adjustments. Not sure if patient's complaints about haldol are unique or they happen with other antipsychotic medications. Will defer any changes to primary team to investigate if other antipsychotcs were better tolerated and patient was adherent to those or not. 05/05: DC haldol at pt request, start invega with plan to use sustenna if PO tolerated. added gabapentin 300 mg Q4H PRN anxiety. 05/06: increase invega to 3 BID. increase gabapentin PRN to 400 mg each. no adverse reaction to invega. 05/07: devolving into bill. no sleep overnight, hypersexual. add ativan 2 mg and invega 3 mg Q6H PRN. 05/08: got 9 mg invega yesterday and 3 mg ativan, slept many hours and less manic today. increased scheduled invega to 12/01. vomited x2 in the past 2 days. no BM x 3 days. starting senna/colace and decreasing cogentin to 0.5 mg QHS from 0.5 mg BID. 05/09: adding lithium due to suspicion of bipolar diathesis. vomiting continued overnight into today, medicine consult placed. I spent ___35___ minutes with the patient and/or on the patient floor today, greater than?50% of which was spent counseling/coordinating care. Reason for contiued inpatient stay Substantial Risk for: harm to self, harm to others, inability to function and rapid decompensation
[2022-05-09] MEDS: chlorproMAZINE HCl 25 MG TABLET 50 MG PO ×2 (15:28→22:32)
[2022-05-09] MEDS: diphenhydrAMINE HCL 25 MG TABLET 50 MG PO (16:39)
[2022-05-09] MEDS: Paliperidone ER 6 MG TAB.ER.24 PO (22:31)
[2022-05-09] MEDS: Benztropine Mesylate 0.5 MG TABLET PO (22:32)
[2022-05-09 23:36] VITALS: BP 142/72; PULSE 86; TEMP 36.8; O2SAT 95
[2022-05-10] MEDS: chlorproMAZINE HCl 25 MG TABLET 50 MG PO ×3 (07:53→16:25)
[2022-05-10] MEDS: Paliperidone ER 3 MG TAB.ER.24 PO ×2 (07:54→10:17)
[2022-05-10] MEDS: Lithium Carbonate ER 450 MG TABLET.ER PO ×2 (07:55→20:26)
[2022-05-10 07:56] VITALS: BP 144/86; PULSE 81; RESP 17; TEMP 36.4; O2SAT 96
[2022-05-10] MEDS: diphenhydrAMINE HCL 25 MG TABLET 50 MG PO ×2 (10:17→16:25)
--- NOTE | 2022-05-10 14:02 | HO.PSYCHPN ---
Subjective Subjective Date of Service: 05/10/22 Reason For Visit: PTSD, Schizoaffective Disorder, bipolar type Interim History: has continued to be hypersexual. On one-to-one observation for same. Has made statements about having condoms that he needs to use. Note that Ativan and gabapentin appear to make things worse over/disinhibition. Thorazine appears to have been helpful and plan of transitioning from Haldol to Invega. Also on lithium. Patient reports things have been sort of okay. Reports he has been feeling anxious and slightly paranoid. Does endorse feeling sexually frustrated. Aware of limitations and expectations being in hospital setting. Was asking about Thorazine as he feels this is helpful. Does have this on an as-needed basis. Medication Compliance: Yes Side effects from medications: No Attending Groups: No Review of Systems Acute medical concerns: No Review of Systems Review of Systems Unremarkable Mental Status Exam Mental Status Exam Narrative: on one-to-one observation. Pleasant with writer editor. Does appear anxious at times. Slightly guarded. Hypersexual. No SI. No HI. Insight and judgment limited Diagnostics Vital Signs (24Hr): Vital Signs - 24 hr 05/09/22 23:36 05/10/22 07:56 Temperature 98.2 F 97.6 F Pulse Rate 86 81 Respiratory Rate 17 Blood Pressure 142/72 H 144/86 H Pulse Oximetry 95 96 Oxygen Delivery Method Room Air Room Air BMI result Body Mass Index 23.3 Labs Results: 05/09/22 12:21 05/09/22 12:21 Labs: Laboratory Results - last 48 hr 05/09/22 05/09/22 05/09/22 12:15 12:20 12:21 WBC 8.4 RBC 5.34 Hgb 14.1 Hct 43.0 MCV 80.5 MCH 26.4 L MCHC 32.8 RDW 16.6 H Plt Count 209 MPV 10.2 Immature Gran % (Auto) 0.4 Neut % (Auto) 73.4 H Lymph % (Auto) 19.2 L [place] % (Auto) 6.2 Eos % (Auto) 0.4 Baso % (Auto) 0.4 Lymph # (Auto) 1.6 [place] # (Auto) 0.5 Eos # (Auto) 0.0 Baso # (Auto) 0.0 Abs Immat Gran (auto) 0.03 Absolute Neuts (auto) 6.2 Absolute Nucleated RBC 0.000 Nucleated RBC % (auto) 0.0 Sodium Potassium Chloride Carbon Dioxide Anion Gap BUN Creatinine Estim Creat Clear Calc Estimated GFR Random Glucose Calcium Total Bilirubin Direct Bilirubin AST ALT Alkaline Phosphatase Total Protein Albumin Urine Color YELLOW Urine Appearance CLEAR Urine pH 7.0 Ur Specific [place] <= 1.005 Urine Protein NEG Urine Glucose (UA) NEG Urine Ketones NEG Urine Blood NEG Urine Nitrite NEG Ur Leukocyte Esterase NEG COVID-19 (DIVYA) Negative COVID-19 Clin Com See Note 05/09/22 12:21 WBC RBC Hgb Hct MCV MCH MCHC RDW Plt Count MPV Immature Gran % (Auto) Neut % (Auto) Lymph % (Auto) [place] % (Auto) Eos % (Auto) Baso % (Auto) Lymph # (Auto) [place] # (Auto) Eos # (Auto) Baso # (Auto) Abs Immat Gran (auto) Absolute Neuts (auto) Absolute Nucleated RBC Nucleated RBC % (auto) Sodium 140 Potassium 3.8 Chloride 105 Carbon Dioxide 24 Anion Gap 15 BUN 9 Creatinine 0.87 Estim Creat Clear Calc 122.2 Estimated GFR > 60 Random Glucose 94 Calcium 9.3 Total Bilirubin 0.3 Direct Bilirubin < 0.2 AST 27 D ALT 21 Alkaline Phosphatase 75 D Total Protein 7.3 Albumin 4.7 Urine Color Urine Appearance Urine pH Ur Specific [place] Urine Protein Urine Glucose (UA) Urine Ketones Urine Blood Urine Nitrite Ur Leukocyte Esterase COVID-19 (DIVYA) COVID-19 Clin Com Medications Medications Current Medications Acetaminophen (Acetaminophen 325 Mg Tablet) 650 mg PO Q6H PRN PRN Reason: Headache/Pain Mild Scale (1-3) Last Admin: 05/08/22 13:55 Dose: 650 mg Al Hydroxide/Mg Hydroxide (Magnesium Hydrox/Alum Hydrox 30 Ml Oral.Susp) 30 ml PO Q6H PRN PRN Reason: Heartburn/Nausea Last Admin: 05/07/22 04:58 Dose: 30 ml Benztropine Mesylate (Benztropine Mesylate 0.5 Mg Tablet) 0.5 mg PO BEDTIME [facility]RY Last Admin: 05/09/22 22:32 Dose: 0.5 mg Chlorpromazine HCl (Chlorpromazine Hcl 25 Mg Tablet) 50 mg PO Q2H PRN PRN Reason: agitation Last Admin: 05/10/22 11:21 Dose: 50 mg Diphenhydramine HCl (Diphenhydramine Hcl 25 Mg Tablet) 50 mg PO Q6H PRN PRN Reason: EPS Last Admin: 05/10/22 10:17 Dose: 50 mg Haloperidol Lactate (Haloperidol Lactate 5 Mg/Ml Vial) 5 mg IM BID PRN PRN Reason: if refuses oral per ann [place] Carbonate ([place] Carbonate Er 450 Mg Tablet.Er) 450 mg PO BID [facility] Last Admin: 05/10/22 07:55 Dose: 450 mg Magnesium Hydroxide (Milk Of Magnesia 30 Ml Oral.Susp) 30 ml PO DAILY PRN PRN Reason: Constipation Ondansetron HCl (Ondansetron Odt 4 Mg Tab.Rapdis) 4 mg TRANSLINGU Q6H PRN PRN Reason: Nausea Last Admin: 05/08/22 20:41 Dose: 4 mg Paliperidone (Paliperidone Er 3 Mg Tab.Er.24) 3 mg PO DAILY [facility] Last Admin: 05/10/22 07:54 Dose: 3 mg Paliperidone (Paliperidone Er 6 Mg Tab.Er.24) 6 mg PO BEDTIME [facility] Last Admin: 05/09/22 22:31 Dose: 6 mg Paliperidone (Paliperidone Er 3 Mg Tab.Er.24) 3 mg PO Q6H PRN PRN Reason: Psychosis Last Admin: 05/10/22 10:17 Dose: 3 mg Senna/Docusate Sodium (Sennosides/Docusate Sodium Tablet) 2 tab PO BID [facility] Last Admin: 05/10/22 07:55 Dose: Not Given Trazodone HCl (Trazodone Hcl 50 Mg Tablet) 50 mg PO BEDTIME PRN PRN Reason: insomnia Last Admin: 05/08/22 20:41 Dose: 50 mg Allergies Allergies Allergy/AdvReac Type Severity Reaction Status Date / Time cefaclor [From [facility]] Allergy Unknown RASH Verified 08/14/20 11:58 penicillin Allergy Unknown Unknown Uncoded 08/05/20 11:19 Assessment & Plan Assessment & Plan (1) Schizoaffective disorder, bipolar type: Status: Acute Code(s): F25.0 - Schizoaffective disorder, bipolar type (2) PTSD (post-traumatic stress disorder): Status: Acute Code(s): F43.10 - Post-traumatic stress disorder, unspecified Plan 26 yo male, history of PTSD, schizoaffective disorder-bipolar type, recent M5 admission, presents from his residence with reports of medication non-compliance (Carlitos's in place) with resulting verbal aggression, impulsive aggression to staff of his [facility] and peers. Pt recently admitted to [facility] 04/15-. Stopped meds per report on discharge. 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 Discussed his Carlitos's options and he has decided Haldol is his best choice after a full review of Holli with pt. Pt asks that we return his dose to 10 mg bid (effective by history) and asks that his next Carlitos's review be given the option of a Geodon trial due to increase in weight neutrality. Pt has been active on the unit and triggering to some of the more decompensated peers-encouraging boxing with them, running, and triggering of agitaiton in others. He has responded when limits were set and explanations were given, although he does report feeling it is humorous to escalate his peers and that he does enjoy it. Team has decided to do a move to M3 later today. Plan: 1. Start ODONNELL of haldol, continue oral dose of haldol 5mg po BID (back up IM ordered per marissa). I worried that if d/c again on oral meds with no ODONNELL he will stop and return to hospital soon. Haldol on ann. HAldol has no weight gain. 2. obtain collateral information 3. Aftercare planning. 05/03: Increase Vistaril and Buspar. Continue other meds the same. 05/04: No med adjustments. Not sure if patient's complaints about haldol are unique or they happen with other antipsychotic medications. Will defer any changes to primary team to investigate if other antipsychotcs were better tolerated and patient was adherent to those or not. 05/05: DC haldol at pt request, start invega with plan to use sustenna if PO tolerated. added gabapentin 300 mg Q4H PRN anxiety. 05/06: increase invega to 3 BID. increase gabapentin PRN to 400 mg each. no adverse reaction to invega. 05/07: devolving into bill. no sleep overnight, hypersexual. add ativan 2 mg and invega 3 mg Q6H PRN. 05/08: got 9 mg invega yesterday and 3 mg ativan, slept many hours and less manic today. increased scheduled invega to 12/01. vomited x2 in the past 2 days. no BM x 3 days. starting senna/colace and decreasing cogentin to 0.5 mg QHS from 0.5 mg BID. 05/09: adding lithium due to suspicion of bipolar diathesis. vomiting continued overnight into today, medicine consult placed. 05/10/2022: No changes to current treatment plan. [place] just added. Utilized Thorazine as needed. Continue one-to-one observation I spent minutes with the patient and/or on the patient floor today, greater than?50% of which was spent counseling/coordinating care. Reason for contiued inpatient stay Substantial Risk for: inability to function
[2022-05-10] MEDS: Milk of Magnesia 30 ML ORAL.SUSP PO (16:23)
--- NOTE | 2022-05-10 17:48 | PC.NURSE ---
At 1400 hospitalist called and asked if pt needed to be seen urgently (pt had been vomiting x3 days but did not vomit today). RN spoke with Dr. Ramirez who advised to hold off for now and we can re-consult again if pt begins vomiting again. RN relayed message to hospitalist Dr. Garcia.
[2022-05-10] MEDS: Magnesium Hydrox/Alum Hydrox 30 ML ORAL.SUSP PO (18:05)
[2022-05-10 19:05] LABS: COVID-19 Test Negative (Negative)
[2022-05-10 20:19] VITALS: BP 128/61; PULSE 91; TEMP 36.7; O2SAT 97
[2022-05-10] MEDS: Acetaminophen 325 MG TABLET 650 MG PO (20:25)
[2022-05-10] MEDS: Paliperidone ER 6 MG TAB.ER.24 PO (20:27)
[2022-05-10] MEDS: Benztropine Mesylate 0.5 MG TABLET PO (20:27)
[2022-05-10] MEDS: Sennosides/Docusate Sodium TABLET 2 TAB PO (20:27)
[2022-05-11 08:05] VITALS: PULSE 104; RESP 18; TEMP 36.5; O2SAT 97
[2022-05-11] MEDS: Lithium Carbonate ER 450 MG TABLET.ER PO ×2 (08:22→21:16)
[2022-05-11] MEDS: Paliperidone ER 3 MG TAB.ER.24 PO ×2 (08:23→11:34)
--- NOTE | 2022-05-11 11:37 | P.PNPSI_ITS ---
Subjective Subjective Date of Service: 05/11/22 Reason For Visit: PTSD, Schizoaffective Disorder, bipolar type Interim History: Note that Ativan and gabapentin appear to make things worse over/disinhibition. Thorazine appears to have been helpful and plan of transitioning from Haldol to Invega. Also on lithium. Slightly less hypersexual today. Patient reports things have been okay. Reports he has been feeling anxious and slightly paranoid, but insight improving around same I thought people were talking about me on the TV but they aren't . Was asking about Thorazine as he feels this is helpful. Does have this on an as-needed basis. Medication Compliance: Yes Side effects from medications: No Attending Groups: Intermittent Review of Systems Acute medical concerns: No Review of Systems Review of Systems Unremarkable Mental Status Exam Mental Status Exam Narrative: on one-to-one observation. 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 Does appear anxious at times. Slightly guarded. less hypersexual. No SI. No HI. Insight and judgment limited Diagnostics Vital Signs (24Hr): Vital Signs - 24 hr 05/10/22 20:19 05/11/22 08:05 Temperature 98.1 F 97.7 F Pulse Rate 91 104 H Respiratory Rate 18 Blood Pressure 128/61 Pulse Oximetry 97 97 Oxygen Delivery Method Room Air Room Air BMI result Body Mass Index 23.3 Labs Results: 05/09/22 12:21 05/09/22 12:21 Labs: Laboratory Results - last 48 hr 05/09/22 05/09/22 05/09/22 12:15 12:20 12:21 WBC 8.4 RBC 5.34 Hgb 14.1 Hct 43.0 MCV 80.5 MCH 26.4 L MCHC 32.8 RDW 16.6 H Plt Count 209 MPV 10.2 Immature Gran % (Auto) 0.4 Neut % (Auto) 73.4 H Lymph % (Auto) 19.2 L Power % (Auto) 6.2 Eos % (Auto) 0.4 Baso % (Auto) 0.4 Lymph # (Auto) 1.6 Power # (Auto) 0.5 Eos # (Auto) 0.0 Baso # (Auto) 0.0 Abs Immat Gran (auto) 0.03 Absolute Neuts (auto) 6.2 Absolute Nucleated RBC 0.000 Nucleated RBC % (auto) 0.0 Sodium Potassium Chloride Carbon Dioxide Anion Gap BUN Creatinine Estim Creat Clear Calc Estimated GFR Random Glucose Calcium Total Bilirubin Direct Bilirubin AST ALT Alkaline Phosphatase Total Protein Albumin Urine Color YELLOW Urine Appearance CLEAR Urine pH 7.0 Ur Specific [place] <= 1.005 Urine Protein NEG Urine Glucose (UA) NEG Urine Ketones NEG Urine Blood NEG Urine Nitrite NEG Ur Leukocyte Esterase NEG COVID-19 ([facility]) Negative COVID-19 Clin Com See Note 05/09/22 05/10/22 12:21 18:41 WBC RBC Hgb Hct MCV MCH MCHC RDW Plt Count MPV Immature Gran % (Auto) Neut % (Auto) Lymph % (Auto) Power % (Auto) Eos % (Auto) Baso % (Auto) Lymph # (Auto) Power # (Auto) Eos # (Auto) Baso # (Auto) Abs Immat Gran (auto) Absolute Neuts (auto) Absolute Nucleated RBC Nucleated RBC % (auto) Sodium 140 Potassium 3.8 Chloride 105 Carbon Dioxide 24 Anion Gap 15 BUN 9 Creatinine 0.87 Estim Creat Clear Calc 122.2 Estimated GFR > 60 Random Glucose 94 Calcium 9.3 Total Bilirubin 0.3 Direct Bilirubin < 0.2 AST 27 D ALT 21 Alkaline Phosphatase 75 D Total Protein 7.3 Albumin 4.7 Urine Color Urine Appearance Urine pH Ur Specific [place] Urine Protein Urine Glucose (UA) Urine Ketones Urine Blood Urine Nitrite Ur Leukocyte Esterase COVID-19 ([facility]) Negative COVID-19 Clin Com See Note Medications Medications Current Medications Acetaminophen (Acetaminophen 325 Mg Tablet) 650 mg PO Q6H PRN PRN Reason: Headache/Pain Mild Scale (1-3) Last Admin: 05/10/22 20:25 Dose: 650 mg Al Hydroxide/Mg Hydroxide (Magnesium Hydrox/Alum Hydrox 30 Ml Oral.Susp) 30 ml PO Q6H PRN PRN Reason: Heartburn/Nausea Last Admin: 05/10/22 18:05 Dose: 30 ml Benztropine Mesylate (Benztropine Mesylate 0.5 Mg Tablet) 0.5 mg PO BEDTIME [facility] Last Admin: 05/10/22 20:27 Dose: 0.5 mg Chlorpromazine HCl (Chlorpromazine Hcl 25 Mg Tablet) 50 mg PO Q2H PRN PRN Reason: agitation Last Admin: 05/10/22 16:25 Dose: 50 mg Diphenhydramine HCl (Diphenhydramine Hcl 25 Mg Tablet) 50 mg PO Q6H PRN PRN Reason: EPS Last Admin: 05/10/22 16:25 Dose: 50 mg Haloperidol Lactate (Haloperidol Lactate 5 Mg/Ml Vial) 5 mg IM BID PRN PRN Reason: if refuses oral per marissa [place] Carbonate ([place] Carbonate Er 450 Mg Tablet.Er) 450 mg PO BID [facility]EN[facility] Last Admin: 05/11/22 08:22 Dose: 450 mg Magnesium Hydroxide (Milk Of Magnesia 30 Ml Oral.Susp) 30 ml PO DAILY PRN PRN Reason: Constipation Last Admin: 05/10/22 16:23 Dose: 30 ml Ondansetron HCl (Ondansetron Odt 4 Mg Tab.Rapdis) 4 mg TRANSLINGU Q6H PRN PRN Reason: Nausea Last Admin: 05/08/22 20:41 Dose: 4 mg Paliperidone (Paliperidone Er 3 Mg Tab.Er.24) 3 mg PO DAILY [facility]ENRY Last Admin: 05/11/22 08:23 Dose: 3 mg Paliperidone (Paliperidone Er 6 Mg Tab.Er.24) 6 mg PO BEDTIME [facility] Last Admin: 05/10/22 20:27 Dose: 6 mg Paliperidone (Paliperidone Er 3 Mg Tab.Er.24) 3 mg PO Q6H PRN PRN Reason: Psychosis Last Admin: 05/11/22 11:34 Dose: 3 mg Senna/Docusate Sodium (Sennosides/Docusate Sodium Tablet) 2 tab PO BID [facility]ENRY Last Admin: 05/11/22 08:23 Dose: Not Given Trazodone HCl (Trazodone Hcl 50 Mg Tablet) 50 mg PO BEDTIME PRN PRN Reason: insomnia Last Admin: 05/08/22 20:41 Dose: 50 mg Allergies Allergies Allergy/AdvReac Type Severity Reaction Status Date / Time cefaclor [From [facility]] Allergy Unknown RASH Verified 08/14/20 11:58 penicillin Allergy Unknown Unknown Uncoded 08/05/20 11:19 Assessment & Plan Assessment & Plan (1) Schizoaffective disorder, bipolar type: Status: Acute Code(s): F25.0 - Schizoaffective disorder, bipolar type (2) PTSD (post-traumatic stress disorder): Status: Acute Code(s): F43.10 - Post-traumatic stress disorder, unspecified Plan 26 yo male, history of PTSD, schizoaffective disorder-bipolar type, recent M5 admission, presents from his residence with reports of medication non-compliance (Carlitos's in place) with resulting verbal aggression, impulsive aggression to staff of his [facility] and peers. Pt recently admitted to [facility] M5 04/15-. Stopped meds per report on discharge. 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 Discussed his Carlitos's options and he has decided Haldol is his best choice after a full review of Holli with pt. Pt asks that we return his dose to 10 mg bid (effective by history) and asks that his next Carlitos's review be given the option of a Geodon trial due to increase in weight neutrality. Pt has been active on the unit and triggering to some of the more decompensated peers-encouraging boxing with them, running, and triggering of agitaiton in others. He has responded when limits were set and explanations were given, although he does report feeling it is humorous to escalate his peers and that he does enjoy it. Team has decided to do a move to M3 later today. Plan: 1. Start ODONNELL of haldol, continue oral dose of haldol 5mg po BID (back up IM ordered per marissa). I worried that if d/c again on oral meds with no ODONNELL he will stop and return to hospital soon. Haldol on ann. HAldol has no weight gain. 2. obtain collateral information 3. Aftercare planning. 05/03: Increase Vistaril and Buspar. Continue other meds the same. 05/04: No med adjustments. Not sure if patient's complaints about haldol are unique or they happen with other antipsychotic medications. Will defer any changes to primary team to investigate if other antipsychotcs were better tolerated and patient was adherent to those or not. 05/05: DC haldol at pt request, start invega with plan to use sustenna if PO tolerated. added gabapentin 300 mg Q4H PRN anxiety. 05/06: increase invega to 3 BID. increase gabapentin PRN to 400 mg each. no adverse reaction to invega. 05/07: devolving into bill. no sleep overnight, hypersexual. add ativan 2 mg and invega 3 mg Q6H PRN. 05/08: got 9 mg invega yesterday and 3 mg ativan, slept many hours and less manic today. increased scheduled invega to 12/01. vomited x2 in the past 2 days. no BM x 3 days. starting senna/colace and decreasing cogentin to 0.5 mg QHS from 0.5 mg BID. 05/09: adding lithium due to suspicion of bipolar diathesis. vomiting continued overnight into today, medicine consult placed. 05/11/2022: No changes to current treatment plan. Clear Spring just added. Utilized Thorazine as needed. Continue one-to-one observation I spent minutes with the patient and/or on the patient floor today, greater than?50% of which was spent counseling/coordinating care. Reason for contiued inpatient stay Substantial Risk for: inability to function
[2022-05-11] MEDS: chlorproMAZINE HCl 25 MG TABLET 50 MG PO ×4 (12:38→23:12)
[2022-05-11 20:25] VITALS: BP 144/69; PULSE 104; RESP 18; TEMP 36.3; O2SAT 99
[2022-05-11] MEDS: Benztropine Mesylate 0.5 MG TABLET PO (21:16)
[2022-05-11] MEDS: Paliperidone ER 6 MG TAB.ER.24 PO (21:16)
[2022-05-11] MEDS: traZODone HCL 50 MG TABLET PO (23:12)
[2022-05-11] MEDS: diphenhydrAMINE HCL 25 MG TABLET 50 MG PO (23:12)
[2022-05-12] MEDS: Paliperidone ER 3 MG TAB.ER.24 PO (08:34)
[2022-05-12] MEDS: Lithium Carbonate ER 450 MG TABLET.ER PO ×2 (08:34→20:37)
[2022-05-12] MEDS: chlorproMAZINE HCl 25 MG TABLET 50 MG PO ×4 (09:08→21:16)
[2022-05-12] MEDS: diphenhydrAMINE HCL 25 MG TABLET 50 MG PO ×2 (09:08→20:38)
[2022-05-12 09:14] VITALS: BP 116/66; PULSE 78; RESP 16; TEMP 36.6
--- NOTE | 2022-05-12 09:54 | HO.PSYCHPN ---
Subjective Subjective Date of Service: 05/12/22 Reason For Visit: PTSD, Schizoaffective Disorder, bipolar type Subjective Notes: Conditional Voluntary Interim History: Pt on one to one for safety due to innapropriate sexual advances to females on unit. Pt presents as organized and calm. He reports he is doing well, I'm stable. Pt apologized for sexually inappropriate conduct. Pt accepts this behavior as part of his illness. He reports at the time it didn't seem inappropriate but now looking back he states it was bad, I can't believe I said that referring to sexual advances to peers. He asks appropriate questions about his medications. He reports he does want ODONNELL. He also states he will continue taking lithium, although states he would prefer to take less medications. No SI/HI. Medication Compliance: Yes Side effects from medications: No Attending Groups: Yes Review of Systems Acute medical concerns: No Review of Systems Review of Systems Unremarkable Yes all other systems are reviewed and are negative Reports behavioral changes Psychiatric: Reports behavioral changes, Reports difficulty concentrating, Reports auditory hallucinations, Reports irritability, Reports anhedonia, Reports mood swings and Reports paranoia Mental Status Exam Mental Status Exam Narrative: Appearance: casually groomed, fair hygiene in NAD Behavior:cooperative psychomotor:no agitation or retardation noted Speech:clear, normal rate/rhythm/volume, spontaneous Thought process:mostly linear Thought content:apologizing for sexually inappropriate conduct Mood: okay Affect: congruent SI:none HI:none VH/AH:less than before Delusions:no overt delusional content noted or reported. Insight/judgment:improving x 2. Memory/cog: alert, oriented x 3. Diagnostics Vital Signs (24Hr): Vital Signs - 24 hr 05/12/22 09:14 Temperature 97.8 F Pulse Rate 78 Respiratory Rate 16 Blood Pressure 116/66 Oxygen Delivery Method Room Air BMI result Body Mass Index 23.3 Labs Results: 05/09/22 12:21 05/09/22 12:21 Labs: Laboratory Results - last 48 hr 05/10/22 18:41 COVID-19 ([facility]) Negative COVID-19 Clin Com See Note Medications Medications Current Medications Acetaminophen (Acetaminophen 325 Mg Tablet) 650 mg PO Q6H PRN PRN Reason: Headache/Pain Mild Scale (1-3) Last Admin: 05/10/22 20:25 Dose: 650 mg Al Hydroxide/Mg Hydroxide (Magnesium Hydrox/Alum Hydrox 30 Ml Oral.Susp) 30 ml PO Q6H PRN PRN Reason: Heartburn/Nausea Last Admin: 05/10/22 18:05 Dose: 30 ml Benztropine Mesylate (Benztropine Mesylate 0.5 Mg Tablet) 0.5 mg PO BEDTIME HENRY Last Admin: 05/11/22 21:16 Dose: 0.5 mg Chlorpromazine HCl (Chlorpromazine Hcl 25 Mg Tablet) 50 mg PO Q2H PRN PRN Reason: agitation Last Admin: 05/12/22 09:08 Dose: 50 mg Diphenhydramine HCl (Diphenhydramine Hcl 25 Mg Tablet) 50 mg PO Q6H PRN PRN Reason: EPS Last Admin: 05/12/22 09:08 Dose: 50 mg Haloperidol Lactate (Haloperidol Lactate 5 Mg/Ml Vial) 5 mg IM BID PRN PRN Reason: if refuses oral per marissa Milo Carbonate (Milo Carbonate Er 450 Mg Tablet.Er) 450 mg PO BID [facility] Last Admin: 05/12/22 08:34 Dose: 450 mg Magnesium Hydroxide (Milk Of Magnesia 30 Ml Oral.Susp) 30 ml PO DAILY PRN PRN Reason: Constipation Last Admin: 05/10/22 16:23 Dose: 30 ml Ondansetron HCl (Ondansetron Odt 4 Mg Tab.Rapdis) 4 mg TRANSLINGU Q6H PRN PRN Reason: Nausea Last Admin: 05/08/22 20:41 Dose: 4 mg Paliperidone (Paliperidone Er 3 Mg Tab.Er.24) 3 mg PO DAILY HENRY Last Admin: 05/12/22 08:34 Dose: 3 mg Paliperidone (Paliperidone Er 6 Mg Tab.Er.24) 6 mg PO BEDTIME HENRY Last Admin: 05/11/22 21:16 Dose: 6 mg Paliperidone (Paliperidone Er 3 Mg Tab.Er.24) 3 mg PO Q6H PRN PRN Reason: Psychosis Last Admin: 05/11/22 11:34 Dose: 3 mg Senna/Docusate Sodium (Sennosides/Docusate Sodium Tablet) 2 tab PO BID HENRY Last Admin: 05/12/22 08:56 Dose: Not Given Trazodone HCl (Trazodone Hcl 50 Mg Tablet) 50 mg PO BEDTIME PRN PRN Reason: insomnia Last Admin: 05/11/22 23:12 Dose: 50 mg Allergies Allergies Allergy/AdvReac Type Severity Reaction Status Date / Time cefaclor [From [facility]] Allergy Unknown RASH Verified 08/14/20 11:58 penicillin Allergy Unknown Unknown Uncoded 08/05/20 11:19 Assessment & Plan Assessment & Plan (1) Schizoaffective disorder, bipolar type: Status: Acute Code(s): F25.0 - Schizoaffective disorder, bipolar type (2) PTSD (post-traumatic stress disorder): Status: Acute Code(s): F43.10 - Post-traumatic stress disorder, unspecified Plan 26 yo male, history of PTSD, schizoaffective disorder-bipolar type, recent M5 admission, presents from his residence with reports of medication non-compliance (Carlitos's in place) with resulting verbal aggression, impulsive aggression to staff of his shelter and peers. Pt recently admitted to [facility] 04/15-. Stopped meds per report on discharge. 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 Discussed his Carlitos's options and he has decided Haldol is his best choice after a full review of Holli with pt. Pt asks that we return his dose to 10 mg bid (effective by history) and asks that his next Carlitos's review be given the option of a Geodon trial due to increase in weight neutrality. Pt has been active on the unit and triggering to some of the more decompensated peers-encouraging boxing with them, running, and triggering of agitaiton in others. He has responded when limits were set and explanations were given, although he does report feeling it is humorous to escalate his peers and that he does enjoy it. Team has decided to do a move to M3 later today. Plan: 05/03: Increase Vistaril and Buspar. Continue other meds the same. 05/04: No med adjustments. Not sure if patient's complaints about haldol are unique or they happen with other antipsychotic medications. Will defer any changes to primary team to investigate if other antipsychotcs were better tolerated and patient was adherent to those or not. 05/05: DC haldol at pt request, start invega with plan to use sustenna if PO tolerated. added gabapentin 300 mg Q4H PRN anxiety. 05/06: increase invega to 3 BID. increase gabapentin PRN to 400 mg each. no adverse reaction to invega. 05/07: devolving into bill. no sleep overnight, hypersexual. add ativan 2 mg and invega 3 mg Q6H PRN. 05/08: got 9 mg invega yesterday and 3 mg ativan, slept many hours and less manic today. increased scheduled invega to 3/6. vomited x2 in the past 2 days. no BM x 3 days. starting senna/colace and decreasing cogentin to 0.5 mg QHS from 0.5 mg BID. 05/09: adding lithium due to suspicion of bipolar diathesis. vomiting continued overnight into today, medicine consult placed. 05/11/2022: No changes to current treatment plan. Milo just added. Utilized Thorazine as needed. Continue one-to-one observation 05/12- Can give Invega Sustenna first loading dose of 234mgIM, I spent minutes with the patient and/or on the patient floor today, greater than?50% of which was spent counseling/coordinating care. Reason for contiued inpatient stay Substantial Risk for: harm to others and inability to function
[2022-05-12] MEDS: Paliperidone Palmitate 234 MG/1.5 ML SYRINGE IM (15:30)
[2022-05-12] MEDS: Benztropine Mesylate 0.5 MG TABLET PO (20:37)
[2022-05-12] MEDS: traZODone HCL 50 MG TABLET PO (20:38)
[2022-05-13 08:00] VITALS: BP 105/58; PULSE 81; RESP 18; TEMP 35.9; O2SAT 98
--- NOTE | 2022-05-13 08:17 | P.PNPSI_ITS ---
Subjective Subjective Date of Service: 05/13/22 Reason For Visit: PTSD, Schizoaffective Disorder, bipolar type Subjective Notes: Conditional Voluntary Interim History: Pt continues on 1:1-due to inappropriate sexual advances to females on unit. Pt reports feeling anxious. He asks for medication for anxiety. When exploring source of anxiety, pt reports he thinks people are talking about him and this is exacerbating his anxiety. Pt also reports not able to talk when female approach him if he does not find the person attractive. He denies SI/HI. He reports difficulty falling as sleep. We discussed adding olanzapine for paranoia- which pt kept referring to just anxiety. in addition to paliperidone. Medication Compliance: Yes Side effects from medications: No Attending Groups: Intermittent Review of Systems Review of Systems Unremarkable Yes all other systems are reviewed and are negative Reports behavioral changes Psychiatric: Reports behavioral changes, Reports difficulty concentrating, Reports auditory hallucinations, Reports irritability, Reports anhedonia, Reports mood swings and Reports paranoia Mental Status Exam Mental Status Exam Narrative: Appearance: casually groomed, fair hygiene in NAD Behavior:cooperative psychomotor:no agitation or retardation noted Speech:clear, normal rate/rhythm/volume, spontaneous Thought process:mostly linear Thought content:apologizing for sexually inappropriate conduct Mood: okay Affect: congruent SI:none HI:none VH/AH:less than before Delusions:no overt delusional content noted or reported. Insight/judgment:improving x 2. Memory/cog: alert, oriented x 3. Diagnostics Vital Signs (24Hr): Vital Signs - 24 hr 05/13/22 18:00 Temperature 97.6 F Pulse Rate 90 Respiratory Rate 18 Blood Pressure 120/78 Pulse Oximetry 99 Oxygen Delivery Method Room Air BMI result Body Mass Index 23.3 Labs Results: 05/09/22 12:21 05/09/22 12:21 Medications Medications Current Medications Acetaminophen (Acetaminophen 325 Mg Tablet) 650 mg PO Q6H PRN PRN Reason: Headache/Pain Mild Scale (1-3) Last Admin: 05/10/22 20:25 Dose: 650 mg Al Hydroxide/Mg Hydroxide (Magnesium Hydrox/Alum Hydrox 30 Ml Oral.Susp) 30 ml PO Q6H PRN PRN Reason: Heartburn/Nausea Last Admin: 05/10/22 18:05 Dose: 30 ml Benztropine Mesylate (Benztropine Mesylate 0.5 Mg Tablet) 0.5 mg PO BEDTIME [facility] Last Admin: 05/13/22 20:54 Dose: 0.5 mg Haloperidol Lactate (Haloperidol Lactate 5 Mg/Ml Vial) 5 mg IM BID PRN PRN Reason: if refuses oral per marissa [place] Carbonate ([place] Carbonate Er 450 Mg Tablet.Er) 450 mg PO BID [facility] Last Admin: 05/13/22 20:55 Dose: 450 mg Magnesium Hydroxide (Milk Of Magnesia 30 Ml Oral.Susp) 30 ml PO DAILY PRN PRN Reason: Constipation Last Admin: 05/10/22 16:23 Dose: 30 ml Olanzapine (Olanzapine Odt 10 Mg Tab.Rapdis) 10 mg TRANSLINGU BID [facility] Last Admin: 05/13/22 20:55 Dose: 10 mg Ondansetron HCl (Ondansetron Odt 4 Mg Tab.Rapdis) 4 mg TRANSLINGU Q6H PRN PRN Reason: Nausea Last Admin: 05/08/22 20:41 Dose: 4 mg Paliperidone Palmitate (Paliperidone Palmitate 234 Mg/1.5 Ml Syringe) 234 mg IM Q30D [facility] Last Admin: 05/12/22 15:30 Dose: 234 mg Senna/Docusate Sodium (Sennosides/Docusate Sodium Tablet) 2 tab PO BID [facility] Last Admin: 05/13/22 20:56 Dose: Not Given Trazodone HCl (Trazodone Hcl 50 Mg Tablet) 50 mg PO BEDTIME PRN PRN Reason: insomnia Last Admin: 05/12/22 20:38 Dose: 50 mg Allergies Allergies Allergy/AdvReac Type Severity Reaction Status Date / Time cefaclor [From [facility]] Allergy Unknown RASH Verified 08/14/20 11:58 penicillin Allergy Unknown Unknown Uncoded 08/05/20 11:19 Assessment & Plan Assessment & Plan (1) Schizoaffective disorder, bipolar type: Status: Acute Code(s): F25.0 - Schizoaffective disorder, bipolar type (2) PTSD (post-traumatic stress disorder): Status: Acute Code(s): F43.10 - Post-traumatic stress disorder, unspecified Plan 26 yo male, history of PTSD, schizoaffective disorder-bipolar type, recent M5 admission, presents from his residence with reports of medication non-compliance (Carlitos's in place) with resulting verbal aggression, impulsive aggression [facility] and peers. Pt recently admitted to [facility] M5 04/15-. Stopped meds per report on discharge. 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 Discussed his Carlitos's options and he has decided Haldol is his best choice after a full review of Holli with pt. Pt asks that we return his dose to 10 mg bid (effective by history) and asks that his next Carlitos's review be given the option of a Geodon trial due to increase in weight neutrality. Pt has been active on the unit and triggering to some of the more decompensated peers-encouraging boxing with them, running, and triggering of agitaiton in others. He has responded when limits were set and explanations were given, although he does report feeling it is humorous to escalate his peers and that he does enjoy it. Team has decided to do a move to M3 later today. Plan: 05/03: Increase Vistaril and Buspar. Continue other meds the same. 05/04: No med adjustments. Not sure if patient's complaints about haldol are unique or they happen with other antipsychotic medications. Will defer any changes to primary team to investigate if other antipsychotcs were better tolerated and patient was adherent to those or not. 05/05: DC haldol at pt request, start invega with plan to use sustenna if PO tolerated. added gabapentin 300 mg Q4H PRN anxiety. 05/06: increase invega to 3 BID. increase gabapentin PRN to 400 mg each. no adverse reaction to invega. 05/07: devolving into bill. no sleep overnight, hypersexual. add ativan 2 mg and invega 3 mg Q6H PRN. 05/08: got 9 mg invega yesterday and 3 mg ativan, slept many hours and less manic today. increased scheduled invega to /6. vomited x2 in the past 2 days. no BM x 3 days. starting senna/colace and decreasing cogentin to 0.5 mg QHS from 0.5 mg BID. 05/09: adding lithium due to suspicion of bipolar diathesis. vomiting continued overnight into today, medicine consult placed. 05/11/2022: No changes to current treatment plan. Encampment just added. Utilized Thorazine as needed. Continue one-to-one observation 05/12- Pt received Invega Sustenna first loading dose of 234mgIM- next 05/16 05/13- scheduled olanzapine 10mg po BID residual paranoia, some hypersexual ideations. check lithium level. I spent minutes with the patient and/or on the patient floor today, greater than?50% of which was spent counseling/coordinating care. Reason for contiued inpatient stay Substantial Risk for: inability to function
[2022-05-13] MEDS: Lithium Carbonate ER 450 MG TABLET.ER PO ×2 (08:35→20:55)
[2022-05-13] MEDS: diphenhydrAMINE HCL 25 MG TABLET 50 MG PO (12:00)
[2022-05-13] MEDS: chlorproMAZINE HCl 25 MG TABLET 50 MG PO ×2 (12:01→17:41)
[2022-05-13 18:00] VITALS: BP 120/78; PULSE 90; RESP 18; TEMP 36.4; O2SAT 99
[2022-05-13] MEDS: Benztropine Mesylate 0.5 MG TABLET PO (20:54)
[2022-05-13] MEDS: OLANZapine ODT 10 MG TAB.RAPDIS TRANSLINGU (20:55)
[2022-05-14] MEDS: OLANZapine ODT 10 MG TAB.RAPDIS TRANSLINGU ×2 (08:52→20:24)
[2022-05-14] MEDS: Lithium Carbonate ER 450 MG TABLET.ER PO ×2 (08:52→20:24)
[2022-05-14 09:08] VITALS: BP 123/70; PULSE 75; RESP 16; TEMP 36.3; O2SAT 100
--- NOTE | 2022-05-14 09:09 | HO.PSYCHPN ---
Subjective Subjective Date of Service: 05/14/22 Reason For Visit: PTSD, Schizoaffective Disorder, bipolar type Subjective Notes: Conditional Voluntary Interim History: Pt continues on 1:1-due to inappropriate sexual advances to females on unit. Pt reports he did not have difficulty falling asleep. He woke this AM at around 6am. He states he would like to sleep longer but at same times reports he does not feel tired. He continues to report anxiety, which refers to paranoia thinking that others are talking about him. He denies SI/HI. He reports less AH. Medication Compliance: Yes Side effects from medications: No Review of Systems Review of Systems Unremarkable Yes all other systems are reviewed and are negative Reports behavioral changes Psychiatric: Reports behavioral changes, Reports difficulty concentrating, Reports auditory hallucinations, Reports irritability, Reports anhedonia, Reports mood swings and Reports paranoia Mental Status Exam Mental Status Exam Narrative: Appearance: casually groomed, fair hygiene in NAD Behavior:cooperative psychomotor:no agitation or retardation noted Speech:clear, normal rate/rhythm/volume, spontaneous Thought process:mostly linear Thought content:apologizing for sexually inappropriate conduct Mood: okay Affect: congruent SI:none HI:none VH/AH:less than before Delusions:no overt delusional content noted or reported. Insight/judgment:improving x 2. Memory/cog: alert, oriented x 3. Diagnostics Vital Signs (24Hr): Vital Signs - 24 hr 05/13/22 18:00 05/14/22 09:08 Temperature 97.6 F 97.3 F Pulse Rate 90 75 Respiratory Rate 18 16 Blood Pressure 120/78 123/70 Pulse Oximetry 99 100 Oxygen Delivery Method Room Air Room Air BMI result Body Mass Index 23.3 Labs Results: 05/09/22 12:21 05/09/22 12:21 Medications Medications Current Medications Acetaminophen (Acetaminophen 325 Mg Tablet) 650 mg PO Q6H PRN PRN Reason: Headache/Pain Mild Scale (1-3) Last Admin: 05/10/22 20:25 Dose: 650 mg Al Hydroxide/Mg Hydroxide (Magnesium Hydrox/Alum Hydrox 30 Ml Oral.Susp) 30 ml PO Q6H PRN PRN Reason: Heartburn/Nausea Last Admin: 05/10/22 18:05 Dose: 30 ml Benztropine Mesylate (Benztropine Mesylate 0.5 Mg Tablet) 0.5 mg PO BEDTIME [facility] Last Admin: 05/13/22 20:54 Dose: 0.5 mg Haloperidol Lactate (Haloperidol Lactate 5 Mg/Ml Vial) 5 mg IM BID PRN PRN Reason: if refuses oral per ann [place] Carbonate ([place] Carbonate Er 450 Mg Tablet.Er) 450 mg PO BID [facility] Last Admin: 05/14/22 08:52 Dose: 450 mg Magnesium Hydroxide (Milk Of Magnesia 30 Ml Oral.Susp) 30 ml PO DAILY PRN PRN Reason: Constipation Last Admin: 05/10/22 16:23 Dose: 30 ml Olanzapine (Olanzapine Odt 10 Mg Tab.Rapdis) 10 mg TRANSLINGU BID [facility] Last Admin: 05/14/22 08:52 Dose: 10 mg Ondansetron HCl (Ondansetron Odt 4 Mg Tab.Rapdis) 4 mg TRANSLINGU Q6H PRN PRN Reason: Nausea Last Admin: 05/08/22 20:41 Dose: 4 mg Paliperidone Palmitate (Paliperidone Palmitate 234 Mg/1.5 Ml Syringe) 234 mg IM Q30D [facility] Last Admin: 05/12/22 15:30 Dose: 234 mg Senna/Docusate Sodium (Sennosides/Docusate Sodium Tablet) 2 tab PO BID [facility] Last Admin: 05/14/22 08:52 Dose: Not Given Trazodone HCl (Trazodone Hcl 50 Mg Tablet) 50 mg PO BEDTIME PRN PRN Reason: insomnia Last Admin: 05/12/22 20:38 Dose: 50 mg Allergies Allergies Allergy/AdvReac Type Severity Reaction Status Date / Time cefaclor [From [facility]] Allergy Unknown RASH Verified 08/14/20 11:58 penicillin Allergy Unknown Unknown Uncoded 08/05/20 11:19 Assessment & Plan Assessment & Plan (1) Schizoaffective disorder, bipolar type: Status: Acute Code(s): F25.0 - Schizoaffective disorder, bipolar type (2) PTSD (post-traumatic stress disorder): Status: Acute Code(s): F43.10 - Post-traumatic stress disorder, unspecified Plan 26 yo male, history of PTSD, schizoaffective disorder-bipolar type, recent M5 admission, presents from his residence with reports of medication non-compliance (Carlitos's in place) with resulting verbal aggression, impulsive aggression to staff of his detention and peers. Pt recently admitted to [facility] M5 04/15-. Stopped meds per report on discharge. 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 Discussed his Carlitos's options and he has decided Haldol is his best choice after a full review of Holli with pt. Pt asks that we return his dose to 10 mg bid (effective by history) and asks that his next Carlitos's review be given the option of a Geodon trial due to increase in weight neutrality. Pt has been active on the unit and triggering to some of the more decompensated peers-encouraging boxing with them, running, and triggering of agitaiton in others. He has responded when limits were set and explanations were given, although he does report feeling it is humorous to escalate his peers and that he does enjoy it. Team has decided to do a move to M3 later today. Plan: 05/03: Increase Vistaril and Buspar. Continue other meds the same. 05/04: No med adjustments. Not sure if patient's complaints about haldol are unique or they happen with other antipsychotic medications. Will defer any changes to primary team to investigate if other antipsychotcs were better tolerated and patient was adherent to those or not. 05/05: DC haldol at pt request, start invega with plan to use sustenna if PO tolerated. added gabapentin 300 mg Q4H PRN anxiety. 05/06: increase invega to 3 BID. increase gabapentin PRN to 400 mg each. no adverse reaction to invega. 05/07: devolving into bill. no sleep overnight, hypersexual. add ativan 2 mg and invega 3 mg Q6H PRN. 05/08: got 9 mg invega yesterday and 3 mg ativan, slept many hours and less manic today. increased scheduled invega to 3/6. vomited x2 in the past 2 days. no BM x 3 days. starting senna/colace and decreasing cogentin to 0.5 mg QHS from 0.5 mg BID. 05/09: adding lithium due to suspicion of bipolar diathesis. vomiting continued overnight into today, medicine consult placed. 05/11/2022: No changes to current treatment plan. [place] just added. Utilized Thorazine as needed. Continue one-to-one observation 05/12- Pt received Invega Sustenna first loading dose of 234mgIM- next 05/16 05/13- scheduled olanzapine 10mg po BID residual paranoia, some hypersexual ideations. check lithium level. 05/14 continue current medications. I spent minutes with the patient and/or on the patient floor today, greater than?50% of which was spent counseling/coordinating care. Reason for contiued inpatient stay Substantial Risk for: harm to others and inability to function
[2022-05-14 20:21] VITALS: BP 115/55; PULSE 63; TEMP 36.6; O2SAT 99
[2022-05-14] MEDS: Benztropine Mesylate 0.5 MG TABLET PO (20:25)
[2022-05-15 07:00] VITALS: BMI 23.6
[2022-05-15] MEDS: Lithium Carbonate ER 450 MG TABLET.ER PO ×2 (08:25→20:27)
[2022-05-15] MEDS: OLANZapine ODT 10 MG TAB.RAPDIS TRANSLINGU ×2 (08:25→19:52)
[2022-05-15 10:31] VITALS: BP 101/56; PULSE 70; RESP 16; TEMP 36.6; O2SAT 99
--- NOTE | 2022-05-15 13:26 | HO.PSYCHPN ---
Subjective Subjective Date of Service: 05/15/22 Reason For Visit: PTSD, Schizoaffective Disorder, bipolar type Subjective Notes: Conditional Voluntary Interim History: Pt continues on 1:1-due to inappropriate sexual advances to females on unit but has shown significant improvement with boundaries. Today meeting with his OP providers. We discussed medication changes and progress while on the unit. Pt reports less anxiety which is related to delusions of others talking about him. He has been taking medications as prescribed but does report that he does not plan to take oral medications, only ODONNELL. We discussed that he may be brought to ED to be given IM if declines in the community. He denies SI/HI. Medication Compliance: Yes Side effects from medications: No Attending Groups: Intermittent Review of Systems Review of Systems Unremarkable Yes all other systems are reviewed and are negative Reports behavioral changes Psychiatric: Reports behavioral changes, Reports difficulty concentrating, Reports auditory hallucinations, Reports irritability, Reports anhedonia, Reports mood swings and Reports paranoia Mental Status Exam Mental Status Exam Narrative: Appearance: casually groomed, fair hygiene in NAD Behavior:cooperative psychomotor:no agitation or retardation noted Speech:clear, normal rate/rhythm/volume, spontaneous Thought process:mostly linear Thought content:apologizing for sexually inappropriate conduct Mood: okay Affect: congruent SI:none HI:none VH/AH:less than before Delusions:no overt delusional content noted or reported. Insight/judgment:improving x 2. Memory/cog: alert, oriented x 3. Diagnostics Vital Signs (24Hr): Vital Signs - 24 hr 05/15/22 10:31 05/15/22 20:34 Temperature 97.8 F 97.3 F Pulse Rate 70 90 Respiratory Rate 16 Blood Pressure 101/56 L 117/55 L Pulse Oximetry 99 98 Oxygen Delivery Method Room Air Room Air BMI result Body Mass Index 23.6 Labs Results: 05/09/22 12:21 05/09/22 12:21 Medications Medications Current Medications Acetaminophen (Acetaminophen 325 Mg Tablet) 650 mg PO Q6H PRN PRN Reason: Headache/Pain Mild Scale (1-3) Last Admin: 05/10/22 20:25 Dose: 650 mg Al Hydroxide/Mg Hydroxide (Magnesium Hydrox/Alum Hydrox 30 Ml Oral.Susp) 30 ml PO Q6H PRN PRN Reason: Heartburn/Nausea Last Admin: 05/10/22 18:05 Dose: 30 ml Benztropine Mesylate (Benztropine Mesylate 0.5 Mg Tablet) 0.5 mg PO BEDTIME [facility] Last Admin: 05/15/22 20:27 Dose: 0.5 mg Haloperidol Lactate (Haloperidol Lactate 5 Mg/Ml Vial) 5 mg IM BID PRN PRN Reason: if refuses oral per marissa [place] Carbonate ([place] Carbonate Er 450 Mg Tablet.Er) 450 mg PO BID [facility] Last Admin: 05/15/22 20:27 Dose: 450 mg Magnesium Hydroxide (Milk Of Magnesia 30 Ml Oral.Susp) 30 ml PO DAILY PRN PRN Reason: Constipation Last Admin: 05/10/22 16:23 Dose: 30 ml Olanzapine (Olanzapine Odt 10 Mg Tab.Rapdis) 10 mg TRANSLINGU BID [facility] Last Admin: 05/15/22 19:52 Dose: 10 mg Ondansetron HCl (Ondansetron Odt 4 Mg Tab.Rapdis) 4 mg TRANSLINGU Q6H PRN PRN Reason: Nausea Last Admin: 05/08/22 20:41 Dose: 4 mg Paliperidone Palmitate (Paliperidone Palmitate 234 Mg/1.5 Ml Syringe) 234 mg IM Q30D [facility] Last Admin: 05/12/22 15:30 Dose: 234 mg Senna/Docusate Sodium (Sennosides/Docusate Sodium Tablet) 2 tab PO BID [facility] Last Admin: 05/15/22 20:35 Dose: Not Given Trazodone HCl (Trazodone Hcl 50 Mg Tablet) 50 mg PO BEDTIME PRN PRN Reason: insomnia Last Admin: 05/15/22 22:18 Dose: 50 mg Allergies Allergies Allergy/AdvReac Type Severity Reaction Status Date / Time cefaclor [From [facility]] Allergy Unknown RASH Verified 08/14/20 11:58 penicillin Allergy Unknown Unknown Uncoded 08/05/20 11:19 Assessment & Plan Assessment & Plan (1) Schizoaffective disorder, bipolar type: Status: Acute Code(s): F25.0 - Schizoaffective disorder, bipolar type (2) PTSD (post-traumatic stress disorder): Status: Acute Code(s): F43.10 - Post-traumatic stress disorder, unspecified Plan 26 yo male, history of PTSD, schizoaffective disorder-bipolar type, recent M5 admission, presents from his residence with reports of medication non-compliance (Carlitos's in place) with resulting verbal aggression, impulsive aggression to staff of his [facility] and peers. Pt recently admitted to [facility] M5 04/15-. Stopped meds per report on discharge. 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 Discussed his Carlitos's options and he has decided Haldol is his best choice after a full review of Holli with pt. Pt asks that we return his dose to 10 mg bid (effective by history) and asks that his next Carlitos's review be given the option of a Geodon trial due to increase in weight neutrality. Pt has been active on the unit and triggering to some of the more decompensated peers-encouraging boxing with them, running, and triggering of agitaiton in others. He has responded when limits were set and explanations were given, although he does report feeling it is humorous to escalate his peers and that he does enjoy it. Team has decided to do a move to M3 later today. Plan: 05/03: Increase Vistaril and Buspar. Continue other meds the same. 05/04: No med adjustments. Not sure if patient's complaints about haldol are unique or they happen with other antipsychotic medications. Will defer any changes to primary team to investigate if other antipsychotcs were better tolerated and patient was adherent to those or not. 05/05: DC haldol at pt request, start invega with plan to use sustenna if PO tolerated. added gabapentin 300 mg Q4H PRN anxiety. 05/06: increase invega to 3 BID. increase gabapentin PRN to 400 mg each. no adverse reaction to invega. 05/07: devolving into bill. no sleep overnight, hypersexual. add ativan 2 mg and invega 3 mg Q6H PRN. 05/08: got 9 mg invega yesterday and 3 mg ativan, slept many hours and less manic today. increased scheduled invega to 3/6. vomited x2 in the past 2 days. no BM x 3 days. starting senna/colace and decreasing cogentin to 0.5 mg QHS from 0.5 mg BID. 05/09: adding lithium due to suspicion of bipolar diathesis. vomiting continued overnight into today, medicine consult placed. 05/11/2022: No changes to current treatment plan. [place] just added. Utilized Thorazine as needed. Continue one-to-one observation 05/12- Pt received Invega Sustenna first loading dose of 234mgIM- next 05/16 05/13- scheduled olanzapine 10mg po BID residual paranoia, some hypersexual ideations. check lithium level. 05/14 continue current medications. 05/15 continue current medication, I spent minutes with the patient and/or on the patient floor today, greater than?50% of which was spent counseling/coordinating care. Reason for contiued inpatient stay Substantial Risk for: harm to others and inability to function
[2022-05-15] MEDS: Benztropine Mesylate 0.5 MG TABLET PO (20:27)
[2022-05-15 20:34] VITALS: BP 117/55; PULSE 90; TEMP 36.3; O2SAT 98
[2022-05-15] MEDS: traZODone HCL 50 MG TABLET PO (22:18)
[2022-05-16 08:49] VITALS: BP 124/76; PULSE 74; RESP 17; TEMP 36.4; O2SAT 100
--- NOTE | 2022-05-16 09:02 | HO.PSYCHPN ---
Subjective Subjective Date of Service: 05/16/22 Reason For Visit: PTSD, Schizoaffective Disorder, bipolar type Subjective Notes: Conditional Voluntary Interim History: Pt continues on 1:1-due to inappropriate sexual advances to females on unit but has shown significant improvement with boundaries. Pt presents as restless, pacing. He continues to endorse anxious mood. He reports believing that people are talking about him. He asks if medications can be adjusted as he feels very anxious today. He reports sleeping well, but waking up early. unclear if some restless s/s to akathisia or ongoing psychosis. pt with fair insight- improved from admission somewhat. Medication Compliance: Yes Review of Systems Review of Systems Unremarkable Yes all other systems are reviewed and are negative Reports behavioral changes Psychiatric: Reports behavioral changes, Reports difficulty concentrating, Reports auditory hallucinations, Reports irritability, Reports anhedonia, Reports mood swings and Reports paranoia Mental Status Exam Mental Status Exam Narrative: Appearance: casually groomed, fair hygiene in NAD Behavior:cooperative psychomotor:no agitation or retardation noted Speech:clear, normal rate/rhythm/volume, spontaneous Thought process:mostly linear Thought content:apologizing for sexually inappropriate conduct Mood: okay Affect: congruent SI:none HI:none VH/AH:less than before Delusions:no overt delusional content noted or reported. Insight/judgment:improving x 2. Memory/cog: alert, oriented x 3. Diagnostics Vital Signs (24Hr): Vital Signs - 24 hr 05/15/22 10:31 05/15/22 20:34 05/16/22 08:49 Temperature 97.8 F 97.3 F 97.6 F Pulse Rate 70 90 74 Respiratory Rate 16 17 Blood Pressure 101/56 L 117/55 L 124/76 Pulse Oximetry 99 98 100 Oxygen Delivery Method Room Air Room Air Room Air BMI result Body Mass Index 23.6 Labs Results: 05/09/22 12:21 05/09/22 12:21 Medications Medications Current Medications Acetaminophen (Acetaminophen 325 Mg Tablet) 650 mg PO Q6H PRN PRN Reason: Headache/Pain Mild Scale (1-3) Last Admin: 05/10/22 20:25 Dose: 650 mg Al Hydroxide/Mg Hydroxide (Magnesium Hydrox/Alum Hydrox 30 Ml Oral.Susp) 30 ml PO Q6H PRN PRN Reason: Heartburn/Nausea Last Admin: 08/13/22 18:05 Dose: 30 ml Haloperidol Lactate (Haloperidol Lactate 5 Mg/Ml Vial) 5 mg IM BID PRN PRN Reason: if refuses oral per ann [place] Carbonate ([place] Carbonate Er 450 Mg Tablet.Er) 450 mg PO BID [facility] Last Admin: 05/15/22 20:27 Dose: 450 mg Magnesium Hydroxide (Milk Of Magnesia 30 Ml Oral.Susp) 30 ml PO DAILY PRN PRN Reason: Constipation Last Admin: 05/10/22 16:23 Dose: 30 ml Olanzapine (Olanzapine Odt 10 Mg Tab.Rapdis) 10 mg TRANSLINGU TID [facility] Ondansetron HCl (Ondansetron Odt 4 Mg Tab.Rapdis) 4 mg TRANSLINGU Q6H PRN PRN Reason: Nausea Last Admin: 05/08/22 20:41 Dose: 4 mg Paliperidone Palmitate (Paliperidone Palmitate 234 Mg/1.5 Ml Syringe) 234 mg IM Q30D [facility] Last Admin: 05/12/22 15:30 Dose: 234 mg Trazodone HCl (Trazodone Hcl 50 Mg Tablet) 50 mg PO BEDTIME PRN PRN Reason: insomnia Last Admin: 05/15/22 22:18 Dose: 50 mg Allergies Allergies Allergy/AdvReac Type Severity Reaction Status Date / Time cefaclor [From [facility]] Allergy Unknown RASH Verified 08/14/20 11:58 penicillin Allergy Unknown Unknown Uncoded 08/05/20 11:19 Assessment & Plan Assessment & Plan (1) Schizoaffective disorder, bipolar type: Status: Acute Code(s): F25.0 - Schizoaffective disorder, bipolar type (2) PTSD (post-traumatic stress disorder): Status: Acute Code(s): F43.10 - Post-traumatic stress disorder, unspecified Plan 26 yo male, history of PTSD, schizoaffective disorder-bipolar type, recent M5 admission, presents from his residence with reports of medication non-compliance (Carlitos's in place) with resulting verbal aggression, impulsive aggression to staff of his intermediate and peers. Pt recently admitted to [facility] M5 04/15-. Stopped meds per report on discharge. 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 Discussed his Carlitos's options and he has decided Haldol is his best choice after a full review of Holli with pt. Pt asks that we return his dose to 10 mg bid (effective by history) and asks that his next Carlitos's review be given the option of a Geodon trial due to increase in weight neutrality. Pt has been active on the unit and triggering to some of the more decompensated peers-encouraging boxing with them, running, and triggering of agitaiton in others. He has responded when limits were set and explanations were given, although he does report feeling it is humorous to escalate his peers and that he does enjoy it. Team has decided to do a move to M3 later today. Plan: 05/03: Increase Vistaril and Buspar. Continue other meds the same. 05/04: No med adjustments. Not sure if patient's complaints about haldol are unique or they happen with other antipsychotic medications. Will defer any changes to primary team to investigate if other antipsychotcs were better tolerated and patient was adherent to those or not. 05/05: DC haldol at pt request, start invega with plan to use sustenna if PO tolerated. added gabapentin 300 mg Q4H PRN anxiety. 05/06: increase invega to 3 BID. increase gabapentin PRN to 400 mg each. no adverse reaction to invega. 05/07: devolving into bill. no sleep overnight, hypersexual. add ativan 2 mg and invega 3 mg Q6H PRN. 05/08: got 9 mg invega yesterday and 3 mg ativan, slept many hours and less manic today. increased scheduled invega to /6. vomited x2 in the past 2 days. no BM x 3 days. starting senna/colace and decreasing cogentin to 0.5 mg QHS from 0.5 mg BID. 05/09: adding lithium due to suspicion of bipolar diathesis. vomiting continued overnight into today, medicine consult placed. 05/11/2022: No changes to current treatment plan. [place] just added. Utilized Thorazine as needed. Continue one-to-one observation 05/12- Pt received Invega Sustenna first loading dose of 234mgIM- next 05/16 05/13- scheduled olanzapine 10mg po BID residual paranoia, some hypersexual ideations. check lithium level. 05/14 continue current medications. 05/15 continue current medication 05/16 increase olanzapine to 10mg po TID, add propanolol 20mg po BID- in past pt with hx of disinhibition with ativan/benzos. I spent minutes with the patient and/or on the patient floor today, greater than?50% of which was spent counseling/coordinating care. Reason for contiued inpatient stay Substantial Risk for: inability to function
[2022-05-16] MEDS: Lithium Carbonate ER 450 MG TABLET.ER PO (09:10)
[2022-05-16] MEDS: OLANZapine ODT 10 MG TAB.RAPDIS TRANSLINGU ×3 (09:10→22:26)
[2022-05-16] MEDS: Propranolol HCL 20 MG TABLET PO ×2 (09:10→22:26)
[2022-05-16 09:51] LABS: Lithium 0.37 mmol/L (0.60-1.20)
[2022-05-16] MEDS: Benztropine Mesylate 1 MG TABLET PO ×2 (15:25→22:26)
[2022-05-16] MEDS: hydrOXYzine HCL 50 MG TABLET PO ×2 (15:59→22:26)
[2022-05-16 22:18] VITALS: BP 107/64; PULSE 65; RESP 16; TEMP 36.4; O2SAT 98
[2022-05-16] MEDS: chlorproMAZINE HCl 25 MG TABLET 50 MG PO (22:26)
[2022-05-16] MEDS: Lithium Carbonate ER 300 MG TABLET.ER 600 MG PO (22:26)
--- NOTE | 2022-05-17 09:07 | HO.PSYCHPN ---
Subjective Subjective Date of Service: 05/17/22 Reason For Visit: PTSD, Schizoaffective Disorder, bipolar type Subjective Notes: Valdez Warning Interim History: I spoke with pt's team. He continues to use PRN thorazine for anxiety. Spoke with pharmacist- Pt will be receiving second loading dose of invega sustenna IM 156 on 05/19/22. Pt says he doesnt know if his meds are working, I still have anxiety, that's why i came here in the first place. Asks to trial an increased dose of thorazine, says it helps somewhat, I feel a little different. Denies akathesia. Says anxiety is worse in the morning and afternoon. Sleep is good. Denies benefit on hydroxyzine PRN. Medication Compliance: Yes Side effects from medications: No Attending Groups: No Review of Systems Acute medical concerns: No Medical Review of Systems: unchanged Mental Status Exam Mental Status Exam Narrative: Appearance: casually groomed, fair hygiene in NAD Behavior:cooperative psychomotor:no agitation or retardation noted Speech:clear, normal rate/rhythm/volume, spontaneous Thought process:mostly linear Thought content:apologizing for sexually inappropriate conduct Mood: anxious Affect: congruent SI:none HI:none VH/AH:less than before Delusions:no overt delusional content noted or reported. Insight/judgment:improving x 2. Memory/cog: alert, oriented x 3. Diagnostics Vital Signs (24Hr): Vital Signs - 24 hr 05/16/22 22:18 Temperature 97.6 F Pulse Rate 65 Respiratory Rate 16 Blood Pressure 107/64 Pulse Oximetry 98 Oxygen Delivery Method Room Air BMI result Body Mass Index 23.6 Labs Results: 05/09/22 12:21 05/09/22 12:21 Labs: Laboratory Results - last 48 hr 05/16/22 09:09 [place] 0.37 L Medications Medications Current Medications Acetaminophen (Acetaminophen 325 Mg Tablet) 650 mg PO Q6H PRN PRN Reason: Headache/Pain Mild Scale (1-3) Last Admin: 05/10/22 20:25 Dose: 650 mg Al Hydroxide/Mg Hydroxide (Magnesium Hydrox/Alum Hydrox 30 Ml Oral.Susp) 30 ml PO Q6H PRN PRN Reason: Heartburn/Nausea Last Admin: 05/10/22 18:05 Dose: 30 ml Benztropine Mesylate (Benztropine Mesylate 1 Mg Tablet) 1 mg PO BID HENRY Last Admin: 05/16/22 22:26 Dose: 1 mg Chlorpromazine HCl (Chlorpromazine Hcl 25 Mg Tablet) 50 mg PO Q6H PRN PRN Reason: agitation Last Admin: 05/16/22 22:26 Dose: 50 mg Haloperidol Lactate (Haloperidol Lactate 5 Mg/Ml Vial) 5 mg IM BID PRN PRN Reason: if refuses oral per ann Hydroxyzine HCl (Hydroxyzine Hcl 50 Mg Tablet) 50 mg PO Q6H PRN PRN Reason: Anxiety Last Admin: 05/16/22 22:26 Dose: 50 mg [place] Carbonate ([place] Carbonate Er 300 Mg Tablet.Er) 600 mg PO BID [facility] Last Admin: 05/16/22 22:26 Dose: 600 mg Magnesium Hydroxide (Milk Of Magnesia 30 Ml Oral.Susp) 30 ml PO DAILY PRN PRN Reason: Constipation Last Admin: 05/10/22 16:23 Dose: 30 ml Olanzapine (Olanzapine Odt 10 Mg Tab.Rapdis) 10 mg TRANSLINGU TID [facility] Last Admin: 05/16/22 22:26 Dose: 10 mg Ondansetron HCl (Ondansetron Odt 4 Mg Tab.Rapdis) 4 mg TRANSLINGU Q6H PRN PRN Reason: Nausea Last Admin: 05/08/22 20:41 Dose: 4 mg Paliperidone Palmitate (Paliperidone Palmitate 234 Mg/1.5 Ml Syringe) 234 mg IM Q30D [facility] Last Admin: 05/12/22 15:30 Dose: 234 mg Propranolol HCl (Propranolol Hcl 20 Mg Tablet) 20 mg PO BID [facility]; Protocol Last Admin: 05/16/22 22:26 Dose: 20 mg Trazodone HCl (Trazodone Hcl 50 Mg Tablet) 50 mg PO BEDTIME PRN PRN Reason: insomnia Last Admin: 05/15/22 22:18 Dose: 50 mg Allergies Allergies Allergy/AdvReac Type Severity Reaction Status Date / Time cefaclor [From [facility]] Allergy Unknown RASH Verified 08/14/20 11:58 Penicillins Allergy Unknown Verified 05/16/22 17:11 Assessment & Plan Assessment & Plan (1) Schizoaffective disorder, bipolar type: Status: Acute Code(s): F25.0 - Schizoaffective disorder, bipolar type (2) PTSD (post-traumatic stress disorder): Status: Acute Code(s): F43.10 - Post-traumatic stress disorder, unspecified Plan 26 yo male, history of PTSD, schizoaffective disorder-bipolar type, recent M5 admission, presents from his residence with reports of medication non-compliance (Carlitos's in place) with resulting verbal aggression, impulsive aggression to staff of his skilled nursing and peers. Pt recently admitted to [facility] 04/15-. Stopped meds per report on discharge. 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 Discussed his Carlitos's options and he has decided Haldol is his best choice after a full review of Holli with pt. Pt asks that we return his dose to 10 mg bid (effective by history) and asks that his next Carlitos's review be given the option of a Geodon trial due to increase in weight neutrality. Pt has been active on the unit and triggering to some of the more decompensated peers-encouraging boxing with them, running, and triggering of agitaiton in others. He has responded when limits were set and explanations were given, although he does report feeling it is humorous to escalate his peers and that he does enjoy it. Team has decided to do a move to M3 later today. Plan: 05/03: Increase Vistaril and Buspar. Continue other meds the same. 05/04: No med adjustments. Not sure if patient's complaints about haldol are unique or they happen with other antipsychotic medications. Will defer any changes to primary team to investigate if other antipsychotcs were better tolerated and patient was adherent to those or not. 05/05: DC haldol at pt request, start invega with plan to use sustenna if PO tolerated. added gabapentin 300 mg Q4H PRN anxiety. 05/06: increase invega to 3 BID. increase gabapentin PRN to 400 mg each. no adverse reaction to invega. 05/07: devolving into bill. no sleep overnight, hypersexual. add ativan 2 mg and invega 3 mg Q6H PRN. 05/08: got 9 mg invega yesterday and 3 mg ativan, slept many hours and less manic today. increased scheduled invega to 3/6. vomited x2 in the past 2 days. no BM x 3 days. starting senna/colace and decreasing cogentin to 0.5 mg QHS from 0.5 mg BID. 05/09: adding lithium due to suspicion of bipolar diathesis. vomiting continued overnight into today, medicine consult placed. 05/11/2022: No changes to current treatment plan. [place] just added. Utilized Thorazine as needed. Continue one-to-one observation 05/12- Pt received Invega Sustenna first loading dose of 234mgIM- next 05/16 05/13- scheduled olanzapine 10mg po BID residual paranoia, some hypersexual ideations. check lithium level. 05/14 continue current medications. 05/15 continue current medication 05/16 increase olanzapine to 10mg po TID, add propanolol 20mg po BID- in past pt with hx of disinhibition with ativan/benzos. 05/17 pt continues to c/o anxiety, asks to trial increased thorazine, will trial 75 mg I spent minutes with the patient and/or on the patient floor today, greater than?50% of which was spent counseling/coordinating care. Patient educated on: medication risk/benefits Reason for contiued inpatient stay Substantial Risk for: rapid decompensation and med/psych decompensation
[2022-05-17 10:00] VITALS: BP 120/66; PULSE 73; RESP 18; TEMP 36.8; O2SAT 100
[2022-05-17] MEDS: Benztropine Mesylate 1 MG TABLET PO (10:12)
[2022-05-17] MEDS: Lithium Carbonate ER 300 MG TABLET.ER 600 MG PO (10:12)
[2022-05-17] MEDS: Propranolol HCL 20 MG TABLET PO (10:12)
[2022-05-17] MEDS: OLANZapine ODT 10 MG TAB.RAPDIS TRANSLINGU ×2 (10:12→15:24)
[2022-05-17] MEDS: chlorproMAZINE HCl 25 MG TABLET 50 MG PO (11:39)
[2022-05-17] MEDS: hydrOXYzine HCL 50 MG TABLET PO (11:39)
[2022-05-17] MEDS: chlorproMAZINE HCl 25 MG TABLET 75 MG PO (16:10)
[2022-05-17 23:10] VITALS: RESP 16
[2022-05-18 08:15] VITALS: BP 126/60; PULSE 72; RESP 20; TEMP 36.5; O2SAT 100
[2022-05-18] MEDS: Propranolol HCL 20 MG TABLET PO ×2 (08:22→20:08)
[2022-05-18] MEDS: OLANZapine ODT 10 MG TAB.RAPDIS TRANSLINGU ×3 (08:22→20:07)
[2022-05-18] MEDS: Lithium Carbonate ER 300 MG TABLET.ER 600 MG PO ×2 (08:22→20:07)
[2022-05-18] MEDS: Benztropine Mesylate 1 MG TABLET PO ×2 (08:22→20:07)
[2022-05-18] MEDS: hydrOXYzine HCL 50 MG TABLET PO (12:59)
[2022-05-18] MEDS: chlorproMAZINE HCl 25 MG TABLET 75 MG PO (12:59)
--- NOTE | 2022-05-18 14:37 | P.PNPSI_ITS ---
Subjective Subjective Date of Service: 05/18/22 Reason For Visit: PTSD, Schizoaffective Disorder, bipolar type Subjective Notes: Valdez Warning Interim History: I spoke with pt's team and evaluated pt today. Per pt, I still feel anxiety, says he took thorazine and I had no anxiety, however says this effect only lasted for 30 min and was not much better than 50 mg. Feels safe, denies SI/SIB/HI. Anxiety is a 5/10. Denies depression. Has been on 1:1 and maintaining behavioral control. Medication Compliance: Yes Side effects from medications: No Attending Groups: No Review of Systems Acute medical concerns: No Medical Review of Systems: unchanged Mental Status Exam Mental Status Exam Narrative: Appearance: casually groomed, fair hygiene in NAD Behavior:cooperative psychomotor:no agitation or retardation noted Speech:clear, normal rate/rhythm/volume, spontaneous Thought process:mostly linear Thought content:apologizing for sexually inappropriate conduct Mood: okay Affect: congruent SI:none HI:none VH/AH:less than before Delusions:no overt delusional content noted or reported. Insight/judgment:improving x 2. Memory/cog: alert, oriented x 3. Diagnostics Vital Signs (24Hr): Vital Signs - 24 hr 05/17/22 23:10 05/18/22 08:15 Temperature 97.7 F Pulse Rate 72 Respiratory Rate 16 20 Blood Pressure 126/60 Pulse Oximetry 100 Oxygen Delivery Method Room Air BMI result Body Mass Index 23.6 Labs Results: 05/09/22 12:21 05/09/22 12:21 Medications Medications Current Medications Acetaminophen (Acetaminophen 325 Mg Tablet) 650 mg PO Q6H PRN PRN Reason: Headache/Pain Mild Scale (1-3) Last Admin: 05/10/22 20:25 Dose: 650 mg Al Hydroxide/Mg Hydroxide (Magnesium Hydrox/Alum Hydrox 30 Ml Oral.Susp) 30 ml PO Q6H PRN PRN Reason: Heartburn/Nausea Last Admin: 05/10/22 18:05 Dose: 30 ml Benztropine Mesylate (Benztropine Mesylate 1 Mg Tablet) 1 mg PO BID HENRY Last Admin: 05/18/22 08:22 Dose: 1 mg Chlorpromazine HCl (Chlorpromazine Hcl 25 Mg Tablet) 75 mg PO Q6H PRN PRN Reason: agitation Last Admin: 05/18/22 12:59 Dose: 75 mg Haloperidol Lactate (Haloperidol Lactate 5 Mg/Ml Vial) 5 mg IM BID PRN PRN Reason: if refuses oral per ann Hydroxyzine HCl (Hydroxyzine Hcl 50 Mg Tablet) 50 mg PO Q6H PRN PRN Reason: Anxiety Last Admin: 05/18/22 12:59 Dose: 50 mg [place] Carbonate ([place] Carbonate Er 300 Mg Tablet.Er) 600 mg PO BID HENRY Last Admin: 05/18/22 08:22 Dose: 600 mg Magnesium Hydroxide (Milk Of Magnesia 30 Ml Oral.Susp) 30 ml PO DAILY PRN PRN Reason: Constipation Last Admin: 05/10/22 16:23 Dose: 30 ml Olanzapine (Olanzapine Odt 10 Mg Tab.Rapdis) 10 mg TRANSLINGU TID [facility]ENRY Last Admin: 05/18/22 08:22 Dose: 10 mg Ondansetron HCl (Ondansetron Odt 4 Mg Tab.Rapdis) 4 mg TRANSLINGU Q6H PRN PRN Reason: Nausea Last Admin: 05/08/22 20:41 Dose: 4 mg Paliperidone Palmitate (Paliperidone Palmitate 156 Mg/Ml Syringe) 156 mg IM ONCE ONE Stop: 05/19/22 09:01 Propranolol HCl (Propranolol Hcl 20 Mg Tablet) 20 mg PO BID COUNTS INCLUDE 234 BEDS AT [facility]; Protocol Last Admin: 05/18/22 08:22 Dose: 20 mg Trazodone HCl (Trazodone Hcl 50 Mg Tablet) 50 mg PO BEDTIME PRN PRN Reason: insomnia Last Admin: 05/15/22 22:18 Dose: 50 mg Allergies Allergies Allergy/AdvReac Type Severity Reaction Status Date / Time [facility]efaclor [[facility] Allergy Unknown RASH Verified 08/14/20 11:58 Penicillins Allergy Unknown Verified 05/16/22 17:11 Assessment & Plan Assessment & Plan (1) Schizoaffective disorder, bipolar type: Status: Acute Code(s): F25.0 - Schizoaffective disorder, bipolar type (2) PTSD (post-traumatic stress disorder): Status: Acute Code(s): F43.10 - Post-traumatic stress disorder, unspecified Plan 26 yo male, history of PTSD, schizoaffective disorder-bipolar type, recent M5 admission, presents from his residence with reports of medication non-compliance (Carlitos's in place) with resulting verbal aggression, impulsive aggression to staff of his retirement and peers. Pt recently admitted [place] [facility] [place] 04[place]15-. Stopped meds per report on discharge. 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 Discussed his Carlitos's options and he has decided Haldol is his best choice after a full review of Holli with pt. Pt asks that we return his dose to 10 mg bid (effective by history) and asks that his next Carlitos's review be given the option of a Geodon trial due to increase in weight neutrality. Pt has been active on the unit and triggering to some of the more decompensated peers-encouraging boxing with them, running, and triggering of agitaiton in others. He has responded when limits were set and explanations were given, although he does report feeling it is humorous to escalate his peers and that he does enjoy it. Team has decided to do a move to M3 later today. Plan: 05/03: Increase Vistaril and Buspar. Continue other meds the same. 05/04: No med adjustments. Not sure if patient's complaints about haldol are unique or they happen with other antipsychotic medications. Will defer any changes to primary team to investigate if other antipsychotcs were better tolerated and patient was adherent to those or not. 05/05: DC haldol at pt request, start invega with plan to use sustenna if PO tolerated. added gabapentin 300 mg Q4H PRN anxiety. 05/06: increase invega to 3 BID. increase gabapentin PRN to 400 mg each. no adverse reaction to invega. 05/07: devolving into bill. no sleep overnight, hypersexual. add ativan 2 mg and invega 3 mg Q6H PRN. 05/08: got 9 mg invega yesterday and 3 mg ativan, slept many hours and less manic today. increased scheduled invega to /6. vomited x2 in the past 2 days. no BM x 3 days. starting senna/colace and decreasing cogentin to 0.5 mg QHS from 0.5 mg BID. 05/09: adding lithium due to suspicion of bipolar diathesis. vomiting continued overnight into today, medicine consult placed. 05/11/2022: No changes to current treatment plan. [place] just added. Utilized Thorazine as needed. Continue one-to-one observation 05/12- Pt received Jade [place] first loading dose of 234mgIM- next 05/16 05/13- scheduled olanzapine 10mg po BID residual paranoia, some hypersexual ideations. check lithium level. 05/14 continue current medications. 05/15 continue current medication 05/16 increase olanzapine to 10mg po TID, add propanolol 20mg po BID- in past pt with hx of disinhibition with ativan/benzos. 05/17 pt continues to c/o anxiety, asks to trial increased thorazine, will trial 75 mg 05/18: pt denies benefit on increased thorazine PRN, decreased back to 50 mg I spent minutes with the patient and/or on the patient floor today, greater than?50% of which was spent counseling/coordinating care. Patient educated on: medication risk/benefits and therapeutic strategies Reason for contiued inpatient stay Substantial Risk for: rapid decompensation and med/psych decompensation
[2022-05-18 20:00] VITALS: BP 127/76; PULSE 89; RESP 18; TEMP 36.6; O2SAT 97
[2022-05-18] MEDS: traZODone HCL 50 MG TABLET PO (20:07)
[2022-05-18] MEDS: chlorproMAZINE HCl 25 MG TABLET 50 MG PO (20:08)
[2022-05-19 08:15] VITALS: BP 130/61; PULSE 87; RESP 18; TEMP 36.3; O2SAT 98
[2022-05-19] MEDS: OLANZapine ODT 10 MG TAB.RAPDIS TRANSLINGU ×3 (08:46→19:33)
[2022-05-19] MEDS: Propranolol HCL 20 MG TABLET PO ×2 (08:46→19:33)
[2022-05-19] MEDS: Lithium Carbonate ER 300 MG TABLET.ER 600 MG PO ×2 (08:46→19:33)
[2022-05-19] MEDS: Benztropine Mesylate 1 MG TABLET PO ×2 (08:46→19:33)
[2022-05-19] MEDS: Paliperidone Palmitate 156 MG/ML SYRINGE IM (10:32)
[2022-05-19] MEDS: chlorproMAZINE HCl 25 MG TABLET 50 MG PO ×2 (10:39→16:42)
--- NOTE | 2022-05-19 11:05 | HO.PSYCHPN ---
Subjective Subjective Date of Service: 05/19/22 Reason For Visit: PTSD, Schizoaffective Disorder, bipolar type Interim History: Pt reports less anxiety. He has not been pacing, sleeping is fair. He reports less ideas of others talking about him but continues to report this. He denies SI/HI. No behavioral concerns, although continues on 1:1 Medication Compliance: Yes Side effects from medications: No Attending Groups: Intermittent Review of Systems Review of Systems Unremarkable Yes all other systems are reviewed and are negative Reports behavioral changes Psychiatric: Reports behavioral changes, Reports difficulty concentrating, Reports auditory hallucinations, Reports irritability, Reports anhedonia, Reports mood swings and Reports paranoia Mental Status Exam Mental Status Exam Narrative: Appearance: casually groomed, fair hygiene in NAD Behavior:cooperative psychomotor:no agitation or retardation noted Speech:clear, normal rate/rhythm/volume, spontaneous Thought process:mostly linear Thought content:apologizing for sexually inappropriate conduct Mood: anxious Affect: congruent SI:none HI:none VH/AH:less than before Delusions:no overt delusional content noted or reported. Insight/judgment:improving x 2. Memory/cog: alert, oriented x 3. Diagnostics Vital Signs (24Hr): Vital Signs - 24 hr 05/18/22 20:00 05/19/22 08:15 Temperature 97.9 F 97.3 F Pulse Rate 89 87 Respiratory Rate 18 18 Blood Pressure 127/76 130/61 Pulse Oximetry 97 98 Oxygen Delivery Method Room Air Room Air BMI result Body Mass Index 23.6 Labs Results: 05/09/22 12:21 05/09/22 12:21 Medications Medications Current Medications Acetaminophen (Acetaminophen 325 Mg Tablet) 650 mg PO Q6H PRN PRN Reason: Headache/Pain Mild Scale (1-3) Last Admin: 05/10/22 20:25 Dose: 650 mg Al Hydroxide/Mg Hydroxide (Magnesium Hydrox/Alum Hydrox 30 Ml Oral.Susp) 30 ml PO Q6H PRN PRN Reason: Heartburn/Nausea Last Admin: 05/10/22 18:05 Dose: 30 ml Benztropine Mesylate (Benztropine Mesylate 1 Mg Tablet) 1 mg PO BID HENRY Last Admin: 05/19/22 08:46 Dose: 1 mg Chlorpromazine HCl (Chlorpromazine Hcl 25 Mg Tablet) 50 mg PO Q6H PRN PRN Reason: agitation Last Admin: 05/19/22 10:39 Dose: 50 mg Haloperidol Lactate (Haloperidol Lactate 5 Mg/Ml Vial) 5 mg IM BID PRN PRN Reason: if refuses oral per ann [place] Carbonate ([place] Carbonate Er 300 Mg Tablet.Er) 600 mg PO BID [facility] Last Admin: 05/19/22 08:46 Dose: 600 mg Magnesium Hydroxide (Milk Of Magnesia 30 Ml Oral.Susp) 30 ml PO DAILY PRN PRN Reason: Constipation Last Admin: 05/10/22 16:23 Dose: 30 ml Olanzapine (Olanzapine Odt 10 Mg Tab.Rapdis) 10 mg TRANSLINGU TID [facility]RY Last Admin: 05/19/22 08:46 Dose: 10 mg Ondansetron HCl (Ondansetron Odt 4 Mg Tab.Rapdis) 4 mg TRANSLINGU Q6H PRN PRN Reason: Nausea Last Admin: 05/08/22 20:41 Dose: 4 mg Propranolol HCl (Propranolol Hcl 20 Mg Tablet) 20 mg PO BID [facility]; Protocol Last Admin: 05/19/22 08:46 Dose: 20 mg Trazodone HCl (Trazodone Hcl 50 Mg Tablet) 50 mg PO BEDTIME PRN PRN Reason: insomnia Last Admin: 05/18/22 20:07 Dose: 50 mg Allergies Allergies Allergy/AdvReac Type Severity Reaction Status Date / Time cefaclor [From [facility]] Allergy Unknown RASH Verified 08/14/20 11:58 Penicillins Allergy Unknown Verified 05/16/22 17:11 Assessment & Plan Assessment & Plan (1) Schizoaffective disorder, bipolar type: Status: Acute Code(s): F25.0 - Schizoaffective disorder, bipolar type (2) PTSD (post-traumatic stress disorder): Status: Acute Code(s): F43.10 - Post-traumatic stress disorder, unspecified Plan 26 yo male, history of PTSD, schizoaffective disorder-bipolar type, recent M5 admission, presents from his residence with reports of medication non-compliance (Carlitos's in place) with resulting verbal aggression, impulsive aggression to staff of his detention and peers. Pt recently admitted to [facility] M[facility] 04/15-. Stopped meds per report on discharge. 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 Discussed his Carlitos's options and he has decided Haldol is his best choice after a full review of Holli with pt. Pt asks that we return his dose to 10 mg bid (effective by history) and asks that his next Carlitos's review be given the option of a Geodon trial due to increase in weight neutrality. Pt has been active on the unit and triggering to some of the more decompensated peers-encouraging boxing with them, running, and triggering of agitaiton in others. He has responded when limits were set and explanations were given, although he does report feeling it is humorous to escalate his peers and that he does enjoy it. Team has decided to do a move to M3 later today. Plan: 05/03: Increase Vistaril and Buspar. Continue other meds the same. 05/04: No med adjustments. Not sure if patient's complaints about haldol are unique or they happen with other antipsychotic medications. Will defer any changes to primary team to investigate if other antipsychotcs were better tolerated and patient was adherent to those or not. 05/05: DC haldol at pt request, start invega with plan to use sustenna if PO tolerated. added gabapentin 300 mg Q4H PRN anxiety. 05/06: increase invega to 3 BID. increase gabapentin PRN to 400 mg each. no adverse reaction to invega. 05/07: devolving into bill. no sleep overnight, hypersexual. add ativan 2 mg and invega 3 mg Q6H PRN. 05/08: got 9 mg invega yesterday and 3 mg ativan, slept many hours and less manic today. increased scheduled invega to 3/6. vomited x2 in the past 2 days. no BM x 3 days. starting senna/colace and decreasing cogentin to 0.5 mg QHS from 0.5 mg BID. 05/09: adding lithium due to suspicion of bipolar diathesis. vomiting continued overnight into today, medicine consult placed. 05/11/2022: No changes to current treatment plan. [place] just added. Utilized Thorazine as needed. Continue one-to-one observation 05/12- Pt received Invega Sustenna first loading dose of 234mgIM- next 05/16 05/13- scheduled olanzapine 10mg po BID residual paranoia, some hypersexual ideations. check lithium level. 05/14 continue current medications. 05/15 continue current medication 05/16 increase olanzapine to 10mg po TID, add propanolol 20mg po BID- in past pt with hx of disinhibition with ativan/benzos. 05/17 pt continues to c/o anxiety, asks to trial increased thorazine, will trial 75 mg 05/18: pt denies benefit on increased thorazine PRN, decreased back to 50 mg 05/19 continue current medications. I spent ___25___ minutes with the patient and/or on the patient floor today, greater than?50% of which was spent counseling/coordinating care. Reason for contiued inpatient stay Substantial Risk for: inability to function
[2022-05-19 19:45] VITALS: BP 133/67; PULSE 75; RESP 18; TEMP 36.6; O2SAT 99
[2022-05-20] MEDS: chlorproMAZINE HCl 25 MG TABLET 50 MG PO ×2 (02:43→12:40)
[2022-05-20 08:13] VITALS: BP 109/58; PULSE 68; RESP 16; TEMP 36.8; O2SAT 100
[2022-05-20] MEDS: Propranolol HCL 20 MG TABLET PO ×2 (08:14→21:13)
[2022-05-20] MEDS: OLANZapine ODT 10 MG TAB.RAPDIS TRANSLINGU ×3 (08:14→21:13)
[2022-05-20] MEDS: Benztropine Mesylate 1 MG TABLET PO ×2 (08:15→21:12)
[2022-05-20] MEDS: Lithium Carbonate ER 300 MG TABLET.ER 600 MG PO ×2 (08:15→21:12)
--- NOTE | 2022-05-20 09:17 | HO.PSYCHPN ---
Subjective Subjective Date of Service: 05/20/22 Reason For Visit: PTSD, Schizoaffective Disorder, bipolar type Subjective Notes: Conditional Voluntary Interim History: Pt reports feeling less anxious. He reports he still thinks that others may be talking about him but states he is not ruminating about it as much as he was and he is less overwhelmed or distressed by it. He denies SI/HI. Pt visible on the unit, social and appropriate with peers. No behavioral concerns, although continues on 1:1 Medication Compliance: Yes Side effects from medications: No Review of Systems Review of Systems Unremarkable Yes all other systems are reviewed and are negative Reports behavioral changes Psychiatric: Reports behavioral changes, Reports difficulty concentrating, Reports auditory hallucinations, Reports irritability, Reports anhedonia, Reports mood swings and Reports paranoia Mental Status Exam Mental Status Exam Narrative: Appearance: casually groomed, fair hygiene in NAD Behavior:cooperative psychomotor:no agitation or retardation noted Speech:clear, normal rate/rhythm/volume, spontaneous Thought process:mostly linear Thought content: residual suspiciousness about others talking about him, future oriented, feeling better Mood: less anxious Affect: congruent SI:none HI:none VH/AH:less than before Delusions:no overt delusional content noted or reported. Insight/judgment:improving x 2. Memory/cog: alert, oriented x 3. Diagnostics Vital Signs (24Hr): Vital Signs - 24 hr 05/20/22 21:09 05/21/22 08:00 Temperature 97.4 F 97.9 F Pulse Rate 95 84 Respiratory Rate 16 17 Blood Pressure 111/55 L 129/60 Pulse Oximetry 97 99 Oxygen Delivery Method Room Air Room Air BMI result Body Mass Index 23.6 Labs Results: 05/09/22 12:21 05/09/22 12:21 Medications Medications Current Medications Acetaminophen (Acetaminophen 325 Mg Tablet) 650 mg PO Q6H PRN PRN Reason: Headache/Pain Mild Scale (1-3) Last Admin: 05/10/22 20:25 Dose: 650 mg Al Hydroxide/Mg Hydroxide (Magnesium Hydrox/Alum Hydrox 30 Ml Oral.Susp) 30 ml PO Q6H PRN PRN Reason: Heartburn/Nausea Last Admin: 05/10/22 18:05 Dose: 30 ml Benztropine Mesylate (Benztropine Mesylate 1 Mg Tablet) 1 mg PO BID HENRY Last Admin: 08/24/22 08:34 Dose: 1 mg Chlorpromazine HCl (Chlorpromazine Hcl 25 Mg Tablet) 50 mg PO Q6H PRN PRN Reason: agitation Last Admin: 05/21/22 05:58 Dose: 50 mg Haloperidol Lactate (Haloperidol Lactate 5 Mg/Ml Vial) 5 mg IM BID PRN PRN Reason: if refuses oral per ann [place] Carbonate ([place] Carbonate Er 300 Mg Tablet.Er) 600 mg PO BID [facility], [facility] Last Admin: 05/21/22 08:34 Dose: 600 mg Magnesium Hydroxide (Milk Of Magnesia 30 Ml Oral.Susp) 30 ml PO DAILY PRN PRN Reason: Constipation Last Admin: 05/10/22 16:23 Dose: 30 ml Olanzapine (Olanzapine Odt 10 Mg Tab.Rapdis) 10 mg TRANSLINGU TID HENRY Last Admin: 05/21/22 08:34 Dose: 10 mg Ondansetron HCl (Ondansetron Odt 4 Mg Tab.Rapdis) 4 mg TRANSLINGU Q6H PRN PRN Reason: Nausea Last Admin: 05/08/22 20:41 Dose: 4 mg Propranolol HCl (Propranolol Hcl 20 Mg Tablet) 20 mg PO BID FOR[facility]LY [facility], [facility]; Protocol Last Admin: 05/21/22 08:34 Dose: 20 mg Trazodone HCl (Trazodone Hcl 50 Mg Tablet) 50 mg PO BEDTIME PRN PRN Reason: insomnia Last Admin: 05/20/22 21:13 Dose: 50 mg Allergies Allergies Allergy/AdvReac Type Severity Reaction Status Date / Time cefaclor [From [facility]] Allergy Unknown RASH Verified 08/14/20 11:58 Penicillins Allergy Unknown Verified 05/16/22 17:11 Assessment & Plan Assessment & Plan (1) Schizoaffective disorder, bipolar type: Status: Acute Code(s): F25.0 - Schizoaffective disorder, bipolar type (2) PTSD (post-traumatic stress disorder): Status: Acute Code(s): F43.10 - Post-traumatic stress disorder, unspecified Plan 26 yo male, history of PTSD, schizoaffective disorder-bipolar type, recent M5 admission, presents from his residence with reports of medication non-compliance (Carlitos's in place) with resulting verbal aggression, impulsive aggression to staff of his senior care and peers. Pt recently admitted to [facility] [place] 04[place]-. Stopped meds per report on discharge. 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 Discussed his Carlitos's options and he has decided Haldol is his best choice after a full review of Holli with pt. Pt asks that we return his dose to 10 mg bid (effective by history) and asks that his next Carlitos's review be given the option of a Geodon trial due to increase in weight neutrality. Pt has been active on the unit and triggering to some of the more decompensated peers-encouraging boxing with them, running, and triggering of agitaiton in others. He has responded when limits were set and explanations were given, although he does report feeling it is humorous to escalate his peers and that he does enjoy it. Team has decided to do a move to M3 later today. Plan: 05/03: Increase Vistaril and Buspar. Continue other meds the same. 05/04: No med adjustments. Not sure if patient's complaints about haldol are unique or they happen with other antipsychotic medications. Will defer any changes to primary team to investigate if other antipsychotcs were better tolerated and patient was adherent to those or not. 05/05: DC haldol at pt request, start invega with plan to use sustenna if PO tolerated. added gabapentin 300 mg Q4H PRN anxiety. 05/06: increase invega to 3 BID. increase gabapentin PRN to 400 mg each. no adverse reaction to invega. 05/07: devolving into bill. no sleep overnight, hypersexual. add ativan 2 mg and invega 3 mg Q6H PRN. 05/08: got 9 mg invega yesterday and 3 mg ativan, slept many hours and less manic today. increased scheduled invega to 3/6. vomited x2 in the past 2 days. no BM x 3 days. starting senna/colace and decreasing cogentin to 0.5 mg QHS from 0.5 mg BID. 05/09: adding lithium due to suspicion of bipolar diathesis. vomiting continued overnight into today, medicine consult placed. 05/11/2022: No changes to current treatment plan. [place] just added. Utilized Thorazine as needed. Continue one-to-one observation 05/12- Pt received Invega Sustenna first loading dose of 234mgIM- next 05/16 05/13- scheduled olanzapine 10mg po BID residual paranoia, some hypersexual ideations. check lithium level. 05/14 continue current medications. 05/15 continue current medication 05/16 increase olanzapine to 10mg po TID, add propanolol 20mg po BID- in past pt with hx of disinhibition with ativan/benzos. 05/17 pt continues to c/o anxiety, asks to trial increased thorazine, will trial 75 mg 05/18: pt denies benefit on increased thorazine PRN, decreased back to 50 mg 05/19 continue current medications. 05/20 continue current medications. I spent minutes with the patient and/or on the patient floor today, greater than?50% of which was spent counseling/coordinating care. Reason for contiued inpatient stay Substantial Risk for: stable for discharge
[2022-05-20 21:09] VITALS: BP 111/55; PULSE 95; RESP 16; TEMP 36.3; O2SAT 97
[2022-05-20] MEDS: traZODone HCL 50 MG TABLET PO (21:13)
[2022-05-21] MEDS: chlorproMAZINE HCl 25 MG TABLET 50 MG PO (05:58)
[2022-05-21 08:00] VITALS: BP 129/60; PULSE 84; RESP 17; TEMP 36.6; O2SAT 99
[2022-05-21] MEDS: OLANZapine ODT 10 MG TAB.RAPDIS TRANSLINGU (08:34)
[2022-05-21] MEDS: Lithium Carbonate ER 300 MG TABLET.ER 600 MG PO (08:34)
[2022-05-21] MEDS: Benztropine Mesylate 1 MG TABLET PO (08:34)
[2022-05-21] MEDS: Propranolol HCL 20 MG TABLET PO (08:34)
--- NOTE | 2022-05-21 12:33 | PM.PSYDC ---
DS: Providers Provider Date of Service: 05/21/22 Date of admission: 04/30/22 10:19 Primary care physician: [facility] Consults: 05/09/22 13:26 Consult to Hospitalist Routine Consulting Provider: Hospitalist Reason For Exam: daily vomiting x 3 days DS: Diagnosis Discharge Diagnosis (1) Schizoaffective disorder, bipolar type: Status: Acute (2) PTSD (post-traumatic stress disorder): Status: Acute DS: Medications Discharge Medications Home Medications: Previous Rx's Medication Instructions Recorded benztropine 1 mg tablet 1 mg PO BID #60 tabs 05/21/22 lithium carbonate 600 mg capsule 600 mg PO BID #60 caps 05/21/22 olanzapine 10 mg disintegrating 10 mg translingual TID #90 tabs 05/21/22 tablet propranolol 20 mg tablet 20 mg PO BID #60 tabs 05/21/22 trazodone 50 mg tablet 50 mg PO BEDTIME PRN insomnia #30 05/21/22 tabs Mental Status Exam Mental Status Exam Narrative: Appearance: casually groomed, fair hygiene in NAD Behavior:cooperative psychomotor:no agitation or retardation noted Speech:clear, normal rate/rhythm/volume, spontaneous Thought process:mostly linear Thought content: residual suspiciousness about others talking about him, future oriented, feeling better Mood: less anxious Affect: congruent SI:none HI:none VH/AH:less than before Delusions:no overt delusional content noted or reported. Insight/judgment:improving x 2. Memory/cog: alert, oriented x 3. Data Data Completed and Pending Completed studies during hospitalization [Text1]: 05/16/22 09:09 Kosse 0.37 L DS: Summary Hospital Course Hospital Course: Subjective Notes: Valdez Warning and Conditional Voluntary Healthcare Proxy: No Guardianship: Yes (Snyder- 1. Haldol---Alternatives-Haldol Dec; Invega, Zyprexa,Seroquel) Medical Problems Affecting Mental Status: No Narrative: 26 yo male, hx of PTSD, schizoaffective disorder-bipolar type to ER after being sent by his residential program due to medicine non-compliance, verbal aggression and impulsive aggression to staff and peers at the home. Tells ER I am not taking these meds because they make me fat. Recent IP admission 04/15- with discharge to his residential program. Since discharge he has been medication non-compliant and has increased his cannabis use. Met with pt x 3. Review of Snyder' options- Haldol, Haldol Dec, Invega, Invega Sustenna Seroquel, Olanzapine. Review of Holli and weight gain potential with each agent, pt deciding Haldol was the best option. Discussed other options-Geodon he would like to trial-will request Carlitos's amendment at his next hearing.? 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 Pt is visable on the unit, but triggering to other destabilized pt's-encouraging boxing, jumping, running and other escalative behaviors. Responded to discussion of unit limitations. Team will have pt move to M3 as he is too triggering for other destabilized peers on M5. Past Psychiatric History: Past meds: Haldol (?gave me a bad effect? i.e. fatigue, ?loss of balance,? says he used to be on 20 mg a day and ?out of nowhere I started getting bad reactions?), Zyprexa (?didnt do anything?), Seroquel (?makes me hungry,? gain wt), Zoloft (?didnt do anything?). Pt also says ?I dont like injections.? -Has OP psych services through [facility], Provider is Asher Stern -Pt has [facility] services (Generator Operator is Robyn Victoria) -Hx of multiple inpatient psych admissions since 2015 for psychosis, last at [facility] in 2020, M5 in 2019 -[facility] Reviewed: Yes HOSPITAL COURSE Mr. Waite was admitted on a CV and placed initially on 15 minutes checks but later changed to one to one due to sexualized behaviors towards female peers and staff. Pt presented symptoms of paranoia thinking others were talking about him. He also presented with hyper sexual behaviors, intrusive inappropriate sexual advances towards females. Pt is on a Snyder. After discussing risks, benefits and alternative treatment options, pt agreed to start paliperidone for psychosis and delusions. He was started on lithium for sexualized behaviors and mood lability. He received ODONNELL Invega Sustena 234mg IM on 05/12/2022, next dose of Invega Sustenna 234mg IM due on 06/12/2022 (can be given 7 days prior). Pt gradually presented as less labile, no sexualized behaviors. He denies SI/HI. Several days prior to discharged pt did not show any signs of aggression towards self or others, nor inappropriate sexual behaviors towards females. He reported residual paranoia but not as distressing as it was before as he thoughts others were talking about him. There was no need for chemical restraints. Status at Discharge Cognitive/behavioral status at discharge: Pt with bright, non labile affect. Sleeping well. Less paranoia. No sexualized behaviors. No SI/HI. Residual thoughts of others talking about him. No signs of aggression towards self or others. Pt showed increased insight into need for some psychiatric treatment. Functional status at discharge: independent ambulation Overall status at discharge: patient is progressing back to baseline Time Spent with Patient Time attestation: Total time spent providing and/or coordinating discharge services: Discharge Plan Discharge Patient Disposition: Home Health Service Discharge Diagnosis: Schizoaffective Disorder, Bipolar type Referrals: Asher Garcia (psychiatrist) [Other] - 05/23/22 2:00 pm (Telehealth appointment) Sonia HUBERA [Other] - 1 Week ([facility] will reach out to you to set up services for monthly injection.) Prakash Boo (therapy intake) [Other] - 05/27/22 10:00 am (In office appointment) [facility] [Primary Care Provider] - 1 Week Discharge Medications: New trazodone 50 mg Tablet 50 mg PO BEDTIME PRN (Reason: insomnia) Qty: 30 0RF benztropine 1 mg Tablet 1 mg PO BID Qty: 60 0RF propranolol 20 mg Tablet 20 mg PO BID Qty: 60 0RF Protocol: Hold for SBP/HR < HOLD for SBP < : 90 HOLD for HR < : 60 lithium carbonate 600 mg capsule 600 mg PO BID Qty: 60 0RF olanzapine 10 mg Tablet,Disintegrating 10 mg translingual TID Qty: 90 0RF Discontinued haloperidol 2 mg tablet 1 tab PO BEDTIME benztropine 0.5 mg tablet 1 tab PO BID trazodone 50 mg tablet 1 tab PO BEDTIME PRN (Reason: insomnia) buspirone 10 mg tablet 1 tab PO TID PRN (Reason: anxiety) escitalopram oxalate 10 mg tablet 1 tab PO DAILY Discharge Orders: Discharge Order (Routine); Ordered 05/21/22 Ordered By: Yanely Rose Diet: Regular diet Activity on Discharge: As tolerated Stand Alone Forms: Patient Portal Discharge page, Community Support Care Plan Goals: 1. Maintain mood 2. No SI/HI Less paranoia No hypersexual intrusive behaviors No signs of aggression towards self or others Health Concerns: Follow up with PCP Plan of Treatment: 1. Take medications as prescribed 2. Go to nearest ED or call 911 in event of emergency Assessment: Pt with bright, non labile affect. No SI/HI. No signs of aggression towards self or others. No hyper sexualized behaviors, not inappropriate behaviors towards females. Increase insight, future oriented. Some residual paranoia thinking others may be taking about him.
== END 2022-05-21 12:44 | disposition home health service (06) | DRG 885 ==
LOC: HO.ED 04-30 09:51 → HO.PM5 04-30 10:22 → HO.PADLT16 05-01 15:37
PROVIDERS: Clinical Nurse Specialist Psychiatric/Mental Health, Adult; Internal Medicine; Psychiatry & Neurology Psychiatry; Admitting Provider Psychiatry & Neurology Psychiatry; Emergency Provider Emergency Medicine Emergency Medical Services; Visit Provider Social Worker
DX: F25.0 Schizoaffective disorder, bipolar type (principal); F43.10 Post-traumatic stress disorder, unspecified; Z20.822 Contact with and (suspected) exposure to COVID-19; K59.00 Constipation, unspecified; Z56.0 Unemployment, unspecified; Z91.14 Patient's other noncompliance with medication regimen; Z80.0 Family history of malignant neoplasm of digestive organs; Z88.8 Allergy status to other drugs, medicaments and biological substances; Z79.899 Other long term (current) drug therapy
CPT/HCPCS: 36415; 80048; 80076; 80178; 80307; 81003; 82306; 82607; 82746; 84443; 85025; 87635; 93005; 99285; J2426; Q0163

== ENCOUNTER 2022-06-03 19:13 | Emergency (ER) | payer MEDICARE, MEDICAID, SELFPAY ==
--- NOTE | 2022-06-03 19:18 | ED.PSYCH ---
HPI - Psych General Chief Complaint: Allergic Reaction Stated Complaint: ADVERSE REACTION TO MEDS Time Seen by Provider: 06/03/22 19:18 Source: patient and EMS Mode of arrival: EMS Limitations: other (poor historian ) History of Present Illness HPI Narrative: 26-year-old male past medical history significant for schizoaffective disorder, bipolar type presenting to the emergency department via EMS from a residential for on voluntary twitching status post taking edibles two hours ago. This is never happened to him before. Patient denies drugs, alcohol and tobacco. Denies visual, auditory and tactile hallucinations. Patient denies any other medical complaints at this time. Onset (ago): day(s) (1) Related Data Previous Rx's Medication Instructions Recorded benztropine 1 mg tablet 1 mg PO BID #60 tabs 05/21/22 lithium carbonate 600 mg capsule 600 mg PO BID #60 caps 05/21/22 olanzapine 10 mg disintegrating 10 mg translingual TID #90 tabs 05/21/22 tablet propranolol 20 mg tablet 20 mg PO BID #60 tabs 05/21/22 trazodone 50 mg tablet 50 mg PO BEDTIME PRN insomnia #30 05/21/22 tabs Allergies Allergy/AdvReac Type Severity Reaction Status Date / Time cefaclor [From [facility]] Allergy Unknown RASH Verified 06/03/22 19:26 Penicillins Allergy Unknown Verified 06/03/22 19:26 Review of Systems Review of Systems: Constitutional : No Weight loss, No Fever, No Chills, No Fatigue, No Malaise ENT/Mouth : No sore throat, No Rhinorrhea Eyes: No Eye Pain, No Swelling, No Redness Cardiovascular : No Chest Pain, No SOB, No Dyspnea on Exertion, No Orthopnea, No Edema, No Palpitations Respiratory : No Cough, No Sputum, No Wheezing Gastrointestinal : No Nausea, No Vomiting, No Diarrhea, No Constipation, No abdominal Pain, No Hematochezia, No Melena Genitourinary : No Dysuria, No Urinary Frequency, No Hematuria, Musculoskeletal : No joint pain, No Myalgias, No Joint Swelling Skin : No Skin Lesions, No rash Neuro : No Weakness, No Numbness, No Dizziness, No Headache Psych : No Anxiety/Panic, No Depression All other systems reviewed and are negative Yes all other systems are reviewed and are negative [facility] Past Medical History Attestation statement: The following information was validated with the patient. Source: old records reviewed Medical History Non compliance w medication regimen Schizoaffective disorder, bipolar type Schizophrenia Social History Social History Household Members: None Household Members Other:: SNF Housing: Assisted Living Facility Housing Other:: SNF Do you presently have visiting nurse or other home services: Yes (PT LIVES IN A SNF - [facility]) Alcohol intake: never Patient Tobacco Use Status: Never used Tobacco e-Cigarette/Vaping Use: Never Used Second Hand Smoke Exposure: Yes Substance Use Type: Marijuana Advance Directives: No Advance Directives Information Provided: No service: No Current occupation: [employer] Sexual orientation: Straight/Heterosexual Physical Exam Vital Signs: Vital Signs: Last Vital Signs Temp 98.2 F 06/03/22 19:27 Pulse 89 06/03/22 23:15 Resp 15 06/03/22 23:15 BP 125/78 06/03/22 23:15 Pulse Ox 99 06/03/22 23:15 O2 Del Method 06/03/22 23:15 BMI result Body Mass Index 28.2 vss Appearance: Alert.? Oriented X3.? No acute distress. Patient with bizarre affect. Head: Normocephalic, atraumatic, no step-offs or deformities Eyes: Pupils equal, round and reactive to light.? ENT: Pharynx normal.? Neck: Normal inspection.? Neck supple.? CVS: Normal heart rate and rhythm.? Pulses normal.? Respiratory: No respiratory distress.? Breath sounds normal.? Abdomen: Soft and nontender.? Skin: Skin warm and dry.? Normal skin color.? Normal skin turgor.? Extremities: No lower extremity edema.? No calf ttp. 5/5 strength to bilateral upper and lower extremities Neuro: Oriented X 3.? No motor deficit.? No sensory deficit. CN 2-12 intact Course Reevaluation(s) Reevaluation #1: CBC with slight leukocytosis however, patient without any medical complaints at this time, chemistry with no acute electrolyte abnormalities requiring intervention, patient's lithium level low, all likely secondary to non med compliance, will start patient on home medications, ethanol negative, COVID negative, urine and urine toxicology pending at this time. Time: 22:50 Reevaluation #2: Patient reports that he is feeling much better. He is requesting to speak to the crisis team. Pending urine and urine toxicolgy. I suspect patient was experiencing symptoms secondary to eating edibles. At this time patient will be placed into physician observation to allow more time to be evaluated by the behavioral health team. At time observation was started patient common cooperative no acute distress. Time: 00:22 MDM - Psych MDM Narrative Medical decision making narrative: 1922 26-year-old male presents from residential with involuntary muscle spasms and muscle tension s/p doing edibles X2 hours Physical examination with intermittent twitching Likely adverse reaction to edibles. Unlikely tardive dyskinesia. Will rule out electrolyte abnormalities and dysrhythmias. Plan at this time is medical clearance. Will administer Benadryl for the symptoms. Medical Records Attestation: I reviewed the patient's medical records. Lab Data Attestation: I reviewed the patient's lab results. Result diagrams: 06/03/22 19:40 06/03/22 19:40 Labs: Lab Results 06/03/22 06/03/22 06/03/22 Range/Units 19:40 19:40 19:40 WBC 11.2 H (4.8-10.8) X10*3/uL RBC 4.91 (4.60-5.80) X10*6/uL Hgb 13.1 L (14.0-18.0) g/dl Hct 39.6 L (42.0-52.0) % MCV 80.7 (80.0-98.0) fL MCH 26.7 L (27.0-33.0) pg MCHC 33.1 (31.0-36.0) g/dl RDW 15.6 (11.0-16.0) % Plt Count 252 (160-400) X10*3/uL MPV 9.9 (9.4-12.4) fL Immature Gran % (Auto) 0.3 (0.0-0.4) % Neut % (Auto) 57.0 (45-73) % Lymph % (Auto) 30.9 (20-40) % [place] % (Auto) 10.4 (2-11) % Eos % (Auto) 1.1 (0-4) % Baso % (Auto) 0.3 (0-2) % Lymph # (Auto) 3.5 (1.2-4.9) X10*3/uL [place] # (Auto) 1.2 (0.1-1.2) X10*3/uL Eos # (Auto) 0.1 (0.0-0.4) X10*3/uL Baso # (Auto) 0.0 (0.0-0.2) X10*3/uL Abs Immat Gran (auto) 0.03 (0.00-0.03) X10*3/uL Absolute Neuts (auto) 6.4 (2.0-8.3) x10*3/uL Absolute Nucleated RBC 0.000 (0.0-0.012) X10*3/uL Nucleated RBC % (auto) 0.0 (0.0-0.2) /100WBC Sodium 141 (135-145) mmol/L Potassium 3.8 (3.3-5.1) mmol/L Chloride 104 (96-108) mmol/L Carbon Dioxide 24 (22-29) mmol/L Anion Gap 17 (12-20) BUN 15 D (9-16) mg/dL Creatinine 0.91 (0.5-1.4) mg/dL Estim Creat Clear Calc 119.7 Estimated GFR > 60 Random Glucose 116 H (60-115) mg/dL Calcium 8.9 (8.4-10.2) mg/dL Magnesium 2.1 (1.6-2.6) mg/dL Total Bilirubin 0.2 (0.0-1.0) mg/dL AST 19 (5-37) U/L ALT 32 (0-40) U/L Alkaline Phosphatase 73 (39-117) U/L Total Creatine Kinase 152 (38-174) U/L Total Protein 7.1 (6.5-8.0) g/dL Albumin 4.3 (3.5-5.0) g/dL [place] (0.60-1.20) mmol/L Ethyl Alcohol < 10 mg/dL COVID-19 (DIVYA) Negative (Negative) COVID-19 Clin Com See Note 06/03/22 Range/Units 19:40 WBC (4.8-10.8) X10*3/uL RBC (4.60-5.80) X10*6/uL Hgb (14.0-18.0) g/dl Hct (42.0-52.0) % MCV (80.0-98.0) fL MCH (27.0-33.0) pg MCHC (31.0-36.0) g/dl RDW (11.0-16.0) % Plt Count (160-400) X10*3/uL MPV (9.4-12.4) fL Immature Gran % (Auto) (0.0-0.4) % Neut % (Auto) (45-73) % Lymph % (Auto) (20-40) % [place] % (Auto) (2-11) % Eos % (Auto) (0-4) % Baso % (Auto) (0-2) % Lymph # (Auto) (1.2-4.9) X10*3/uL [place] # (Auto) (0.1-1.2) X10*3/uL Eos # (Auto) (0.0-0.4) X10*3/uL Baso # (Auto) (0.0-0.2) X10*3/uL Abs Immat Gran (auto) (0.00-0.03) X10*3/uL Absolute Neuts (auto) (2.0-8.3) x10*3/uL Absolute Nucleated RBC (0.0-0.012) X10*3/uL Nucleated RBC % (auto) (0.0-0.2) /100WBC Sodium (135-145) mmol/L Potassium (3.3-5.1) mmol/L Chloride (96-108) mmol/L Carbon Dioxide (22-29) mmol/L Anion Gap (12-20) BUN (9-16) mg/dL Creatinine (0.5-1.4) mg/dL Estim Creat Clear Calc Estimated GFR Random Glucose (60-115) mg/dL Calcium (8.4-10.2) mg/dL Magnesium (1.6-2.6) mg/dL Total Bilirubin (0.0-1.0) mg/dL AST (5-37) U/L ALT (0-40) U/L Alkaline Phosphatase (39-117) U/L Total Creatine Kinase (38-174) U/L Total Protein (6.5-8.0) g/dL Albumin (3.5-5.0) g/dL [place] < 0.04 L (0.60-1.20) mmol/L Ethyl Alcohol mg/dL COVID-19 (DIVYA) (Negative) COVID-19 Clin Com ECG Data Attestation: I personally reviewed and interpreted this ECG as follows: ECG interpretation date: 06/03/22 ECG interpretation time: 20:13 Prior ECG tracings: available for review Interpretation: Ventricular rate of 85, GA normal, QRS normal, QT/QTC normal EKG with normal sinus rhythm and an incomplete right bundle-branch block, no ST elevations or inversions concerning for ischemia. No significant changes when compared to previous Critical Care Time Critical Care Time Critical Care Time: No Discharge Plan Discharge Clinical Impression: Schizoaffective disorder, Adverse effect of cannabis Patient Disposition: Still a Patient Prescriptions: No Action trazodone 50 mg Tablet 50 mg PO BEDTIME PRN (Reason: insomnia) Qty: 30 0RF benztropine 1 mg Tablet 1 mg PO BID Qty: 60 0RF propranolol 20 mg Tablet 20 mg PO BID Qty: 60 0RF Protocol: Hold for SBP/HR < HOLD for SBP < : 90 HOLD for HR < : 60 lithium carbonate 600 mg capsule 600 mg PO BID Qty: 60 0RF olanzapine 10 mg Tablet,Disintegrating 10 mg translingual TID Qty: 90 0RF
--- NOTE | 2022-06-03 19:20 | ECG_ITS ---
Test Reason : allergic reaction Blood Pressure : / mmHG Vent. Rate : 085 BPM Atrial Rate : 085 BPM P-R Int : 138 ms QRS Dur : 102 ms QT Int : 378 ms P-R-T Axes : 075 -22 055 degrees QTc Int : 449 ms Normal sinus rhythm Incomplete right bundle branch block Borderline ECG When compared with ECG of 02-MAY-2022 09:35, Vent. rate has increased BY 30 BPM Nonspecific T wave abnormality no longer evident in Inferior leads Referred By: Milo Dumont Electronically Signed By:JUAN DIEGO ALBERTO
[2022-06-03 19:27] VITALS: BP 127/66; BP 144/118; PULSE 102; PULSE 126; RESP 18; TEMP 36.8; O2SAT 96; O2SAT 99; BMI 28.2
[2022-06-03 19:50] LABS: MANUAL DIFF FLAG NO
--- NOTE | 2022-06-03 19:54 | PC.NURSE ---
Patient disclosed to MD that before arrived to [facility] he ingested some marijuana edibles.
[2022-06-03 20:01] LABS: Basophils Percent Auto 0.3 % (0-2); Eosinophils Absolute Auto 0.1 X10*3/uL (0.0-0.4); Eosinophils Percent Auto 1.1 % (0-4); Hematocrit 39.6 % (42.0-52.0); Hemoglobin 13.1 g/dl (14.0-18.0); Imm Gran Abs Auto 0.03 X10*3/uL (0.00-0.03); Imm Gran Pct Auto 0.3 % (0.0-0.4); Lymphocytes Absolute Auto 3.5 X10*3/uL (1.2-4.9); Lymphocytes Percent Auto 30.9 % (20-40); Mean Corpuscular HGB Conc 33.1 g/dl (31.0-36.0); Mean Corpuscular Hemoglobin 26.7 pg (27.0-33.0); Mean Corpuscular Volume 80.7 fL (80.0-98.0); Mean Platelet Volume 9.9 fL (9.4-12.4); Monocytes Absolute Auto 1.2 X10*3/uL (0.1-1.2); Monocytes Percent Auto 10.4 % (2-11); Neutrophils Absolute Auto 6.4 x10*3/uL (2.0-8.3); Platelet Count 252 X10*3/uL (160-400); Red Blood Count 4.91 X10*6/uL (4.60-5.80); Red Cell Distribution Width 15.6 % (11.0-16.0); White Blood Count 11.2 X10*3/uL (4.8-10.8)
[2022-06-03 20:06] LABS: Lithium < 0.04 mmol/L (0.60-1.20)
[2022-06-03 20:10] LABS: Alanine Aminotransferase 32 U/L (0-40); Albumin Level 4.3 g/dL (3.5-5.0); Alkaline Phosphatase 73 U/L (39-117); Anion Gap 17 (12-20); Aspartate Amino Transferase 19 U/L (5-37); Bilirubin Total 0.2 mg/dL (0.0-1.0); Blood Urea Nitrogen 15 mg/dL (9-16); Calcium 8.9 mg/dL (8.4-10.2); Carbon Dioxide 24 mmol/L (22-29); Chloride 104 mmol/L (96-108); Creatinine Clr Calc Pharmacy 119.7; Estimated Glomerular Filt Rate > 60; Ethanol < 10 mg/dL; Glucose Random 116 mg/dL (60-115); Magnesium 2.1 mg/dL (1.6-2.6); Potassium 3.8 mmol/L (3.3-5.1); Sodium 141 mmol/L (135-145); Total Protein 7.1 g/dL (6.5-8.0)
[2022-06-03 20:15] LABS: COVID-19 Test Negative (Negative)
[2022-06-03] MEDS: diphenhydrAMINE HCL 25 MG TABLET 50 MG PO (21:52)
[2022-06-03 23:15] VITALS: BP 125/78; PULSE 89; RESP 15; O2SAT 99
[2022-06-04] VITALS: BP 128/76; PULSE 78; O2SAT 98
[2022-06-04 02:00] VITALS: BP 130/70; PULSE 80; O2SAT 98
[2022-06-04 06:00] VITALS: BP 112/52; PULSE 59; O2SAT 98
[2022-06-04 06:25] VITALS: BP 106/54; PULSE 62; RESP 16; TEMP 36.6; O2SAT 99
--- NOTE | 2022-06-04 06:30 | PC.NURSE ---
Patient just got transferred to ED POD, independent ambulation, behavior in good control, med rec completed/pending provider's approval, BHN referral completed/confirmed/pending ETA, compliant with private branch exchange repairer, VSS, will continue to monitor.
[2022-06-04 06:42] LABS: Appearance Urine Clear; Color Urine Yellow; Glucose Urine UA Negative (Negative); Leukocyte Esterase Urine Negative (Negative); Nitrite Urine Negative (Negative); Specific Gravity - Urine 1.025 (1.005-1.025); Urine Blood Negative (Negative); Urine Ketones Negative (Negative); Urine Protein Negative (Neg-Trace)
[2022-06-04 06:56] LABS: Amphetamine Screen Urine Not Detected (Not Detect); Barbiturates, Urine Not Detected (Not Detect); Benzodiazepines Screen Urine Not Detected (Not Detect); Cannabinoid Screen Urine POSITIVE (Not Detect); Cocaine Screen Urine Not Detected (Not Detect); Fentanyl, urine Not Detected (Not Detect); Opiate Screen Urine Not Detected (Not Detect); Phencyclidine Screen Urine Not Detected (Not Detect)
--- NOTE | 2022-06-04 07:05 | PC.NURSE ---
patient appears to remain asleep at present respirations are even and unlabored patient appears in no distress
--- NOTE | 2022-06-04 07:45 | PHA.MEDREC ---
Pharmacy Consult ? Medication Reconciliation Pharmacy has completed the medication reconciliation.
[2022-06-04 10:51] VITALS: BP 122/62; PULSE 78; RESP 16; TEMP 36.4; O2SAT 100
[2022-06-04] MEDS: LORazepam 1 MG TABLET 2 MG PO (11:10)
--- NOTE | 2022-06-04 12:14 | MHC.CARE ---
Pt is a 26 y/o, Macedonian speaking, bi racial male who is previously known to the CARE Team via previous inpatient admission at this facility.? Yesterday, pt presented via ambulance with a complaint of involuntary twitching after consuming marijuana edibles approximately two hours prior to his arrival.? Pt stated that he is a frequent, daily, marijuana consumer and that such a reaction has never occurred.? He purchased the edibles ?from a friend? and ?They looked legit, they had packaging? so he felt they would be fine to use at the time.? Pt stated that after he had taken the edibles, he began to experience involuntary twitching and stiffness in his muscles.? At the time, he denied visual, auditory and tactile hallucinations.? Pt stated that he has stopped taking his prescribed medications, with the exception of his Invega Sustaina injection which is mandated by his Snyder order.? Note, CARE Team has not seen the Carlitos?s order and thus cannot confirm pt?s statement as being correct.? Pt has been medically cleared and is being assessed by the CARE Team to determine risk. Pt has a hx of inpt hospitalizations, and medication noncompliance. Past documented hx of Schizoaffective disorder, bipolar type and PTSD (post-traumatic stress disorder).? Pt is alert and oriented x4 and is assessed for risk in his room in the behavioral health pod of the ED.? Pt is neat and well-groomed and is dressed in hospital attire.? His speech and eye contact are unremarkable and he demonstrates linear thinking and is future oriented.? Pt denies SI, HI, , self-harm urges and AVH.? Pt stated that he could be safe if discharged home. CARE Team discussed the risk of purchasing and using marijuana and marijuana products from individuals on the street.? Pt stated he understood the risks and would modify the means by which he procures his cannabis products.? CARE Team spoke with Fady ([phone]) from the detention, Fady is identified as a consulting group analyst. Fady stated that pt does not take his daily medications, refusing them.? Pt does take his Invega sustaina shot without incident and is scheduled for one next week. He reports that pt does not participate in ?anything? at the . Fady did note that he did not notice any behaviors out of the norm for pt.? The has reported the refusal of medication to the Snyder monitor Ms. Nicki Maynard ([phone]).? Ptr was placed on a Snyder Order while on [facility].? A call was placed to Settlement Processor Mr. Roland Harmon ([phone]). CARE Team consulted with psychiatry Alma Figueredo regarding pt.? Pt will be getting his Invega Sustaina injection here at this facility today and his Cogentin. Pt does not appear to be a risk, nor does he meet criteria for in patient level of care.
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
--- NOTE | 2022-06-04 12:36 | MHC.CARE ---
CARE Team speaks with Nub Card Tender Lonny Harmon. Pt will be discharging back to the , when ready contact the ([phone], use this number first or [phone]) for a ride.
[2022-06-04] MEDS: Lithium Carbonate 300 MG CAPSULE 600 MG PO (13:09)
[2022-06-04] MEDS: Propranolol HCL 20 MG TABLET PO (13:10)
[2022-06-04] MEDS: Paliperidone Palmitate 234 MG/1.5 ML SYRINGE IM (14:59)
--- NOTE | 2022-06-04 15:43 | MHC.CARE ---
CARE Team speaks with pt's residential who agrees to come and pick him up from the ED.
== END 2022-06-04 15:52 | disposition home or self-care (01) ==
PROVIDERS: Physician Assistant; Emergency Provider Emergency Medicine Emergency Medical Services
DX: F25.9 Schizoaffective disorder, unspecified (principal); M62.838 Other muscle spasm; T40.715A Adverse effect of cannabis, initial encounter; Y92.9 Unspecified place or not applicable; Z20.822 Contact with and (suspected) exposure to COVID-19; Z79.899 Other long term (current) drug therapy
CPT/HCPCS: 36415; 80053; 80178; 80307; 81003; 82077; 82550; 83735; 85025; 87635; 93005; 96372; 99285; J2426; Q0163

== ENCOUNTER 2022-07-21 15:16 | Emergency (ER) | payer MEDICARE, MEDICAID, SELFPAY ==
[2022-07-21 15:47] VITALS: BP 125/52; PULSE 69; RESP 14; TEMP 36.6; O2SAT 98; BMI 23.9
--- NOTE | 2022-07-21 16:21 | ED_ITS ---
HPI - General Adult General Chief complaint: General Medical Stated complaint: Lump on chest Time Seen by Provider: 07/21/22 16:10 Source: patient Mode of arrival: ambulatory Limitations: no limitations History of Present Illness HPI narrative: Patient presents emergency department for evaluation of concern for a lump. He states that a few days ago while he was lying on his back he felt a small bump just below the xiphoid process/substernally towards the top of the epigastrium. He says he can sometimes feel this when he relaxes his abdominal muscles were takes a deep breath in. Sometimes he has tenderness when touching it. It is not always able to be palpated. Denies any skin color changes to the area. Denies fevers, chills, night sweats, recent unintentional weight loss, nausea, vomiting, abdominal pain, constipation, diarrhea. Related Data Home Medications Medication Instructions Recorded Confirmed benztropine 1 mg tablet 1 tab PO BID 06/04/22 06/04/22 buspirone 10 mg tablet 1 tab PO TID PRN anxiety 06/04/22 06/04/22 escitalopram oxalate 10 mg tablet 1 tab PO DAILY 06/04/22 06/04/22 haloperidol 2 mg tablet 1 tab PO BID 06/04/22 06/04/22 lithium carbonate 600 mg capsule 1 cap PO BID 06/04/22 06/04/22 propranolol 20 mg tablet 1 tab PO BID 06/04/22 06/04/22 trazodone 50 mg tablet 1 tab PO BEDTIME 06/04/22 06/04/22 Previous Rx's Medication Instructions Recorded olanzapine 10 mg disintegrating 10 mg translingual TID #90 tabs 05/21/22 tablet Allergies Allergy/AdvReac Type Severity Reaction Status Date / Time cefaclor [From [facility]] Allergy Unknown RASH Verified 06/03/22 19:26 Penicillins Allergy Unknown Verified 06/03/22 19:26 Review of Systems Review of Systems: Constitutional: No weight loss, fever, chills, weakness or fatigue. Skin: No rash or itching. Cardiovascular: No chest pain, chest pressure or chest discomfort. No palpitations Respiratory: No shortness of breath, cough or sputum production. Gastrointestinal: No anorexia, nausea, vomiting or diarrhea. No abdominal pain Genitourinary: No burning micturition. No urinary frequency or incontinence. Musculoskeletal: No muscle pain, back pain, joint pain or stiffness. Psychiatric: No depression or anxiety. Yes all other systems are reviewed and are negative [facility] Past Medical History Attestation statement: The following information was validated with the patient. Source: old records reviewed Medical History Non compliance w medication regimen Schizoaffective disorder, bipolar type Schizophrenia Social History Social History Household Members: None Household Members Other:: CUSTODIAL Housing: Assisted Living Facility Housing Other:: CUSTODIAL Do you presently have visiting nurse or other home services: Yes (PT LIVES IN A CUSTODIAL - [facility]) Alcohol intake: former Patient Tobacco Use Status: Current everyday Tobacco user e-Cigarette/Vaping Use: Never Used Second Hand Smoke Exposure: Yes Substance Use Type: Marijuana Advance Directives: No Advance Directives Information Provided: No service: No Current occupation: [employer] Sexual orientation: Straight/Heterosexual Physical Exam ED Vital Signs: Vital Signs - 24 hr 07/21/22 15:47 Temperature 97.9 F Pulse Rate 69 Respiratory Rate 14 Blood Pressure 125/52 L Pulse Oximetry 98 Oxygen Delivery Method Room Air BMI result Body Mass Index 23.9 Appearance: Alert.?Oriented to person, place and time. No acute distress.?Normal affect. Eyes: Pupils equal, round and reactive to light.? ENT: Pharynx normal.?? Neck: Normal inspection.? Neck supple.?? CVS: Heart sounds normal. Normal heart rate and rhythm.? Pulses normal.?? Respiratory: No respiratory distress.? Lung sounds clear to auscultation bilaterally. In palpating at the tip of the sternum/over the epigastrium area at patient's area of concern only able to palpate the xiphoid process? Abdomen: Soft and non-tender. Normoactive bowel sounds. No palpable masses Skin: Skin warm and dry.? Normal skin color.? Extremities: No lower extremity edema.? Neuro: Moves all extremities spontaneously. Sensation intact bilaterally. . No focal neuro deficits. Ambulates with normal steady gait. Course Course Course Narrative: Patient is a 27-year-old male with a past medical history of schizophrenia who presents to the emergency department for evaluation of concern for a palpable lump the epigastrium region. At the time examination abdominal exam is benign. Reassurance was provided. The area that he is palpating would be his xiphoid process. Has no additional symptoms associated with this. Patient stable for discharge home. Advised to return to the emergency department any new or worsening symptoms or concerns. Medical Decision Making Medical Records Medical records reviewed: Yes I reviewed the patient's medical records. Discharge Plan Discharge Clinical Impression: Prominent xiphoid Patient Disposition: Home, Self-Care Additional Instructions: Your exam today is reassuring, as we discussed the area that you are feeling use your xiphoid process, the tip of your chest bone. Please refer to return to the emergency department any new or worsening symptoms or concerns. Prescriptions: No Action trazodone 50 mg tablet 1 tab PO BEDTIME lithium carbonate 600 mg capsule 1 cap PO BID benztropine 1 mg tablet 1 tab PO BID propranolol 20 mg tablet 1 tab PO BID buspirone 10 mg tablet 1 tab PO TID PRN (Reason: anxiety) haloperidol 2 mg tablet 1 tab PO BID escitalopram oxalate 10 mg tablet 1 tab PO DAILY olanzapine 10 mg Tablet,Disintegrating 10 mg translingual TID Qty: 90 0RF
== END 2022-07-21 16:38 | disposition home or self-care (01) ==
PROVIDERS: Emergency Provider Emergency Medicine
DX: M95.4 Acquired deformity of chest and rib (principal)
CPT/HCPCS: 99282

== ENCOUNTER 2022-07-30 01:31 | Inpatient (IN) | payer MEDICARE, MEDICAID, SELFPAY ==
[2022-07-30 01:37] VITALS: BP 126/64; BP 126/82; PULSE 70; PULSE 90; RESP 16; TEMP 37; O2SAT 96; O2SAT 99; BMI 22.2
--- OUTSIDE RECORDS SUMMARY | 2022-07-30 02:01 | XMS_ITS | Continuity of Care Document ---
:1995 Author Organization [facility] Address [address] [place] [id number]- Care Team Providers Name Role Phone Not on Staff, PCP Primary Care Physician Unavailable Encounter [facility] Date(s): 09/06/19 - 09/07/[address] [address]- [facility] Encounter Diagnosis Suicidal ideation (Final) - 09/07/19 Discharge Disposition: A-D/C Home Attending Physician: Parviz CAAL, Ema Ordoñez Admitting Physician: Ema Jj MD Referring Physician: Not on Staff, Referring MD Allergies, Adverse Reactions, Alerts Substance Reaction Severity Status Ceclor Active Medications ibuprofen 600 mg oral tablet 1 tablet = 600 mg, By Mouth, 4 times a day, PRN Pain, take 4 times a day for first 3 days, then as needed, # 40 tablet, 0 Refills, Maintenance, 05/26/14 11:59:41 Start Date: 05/26/14 Status: Ordered Vital Signs Most recent to oldest 1 2 3 [Reference Range]: Oxygen Saturation [94-100 100 % 100 % 100 % %] (09/07/19 9:26 AM) (09/07/19 5:23 AM) (09/06/19 10:20 PM) Pulse Rate [55-90 bpm] 72 bpm 68 bpm 80 bpm (09/07/19 9:26 AM) (09/07/19 5:23 AM) (09/06/19 10:20 PM) Blood Pressure 114/64 mm Hg 123/73 mm Hg 101/60 mm Hg [90-138/55-84 mm Hg] (09/07/19 9:26 AM) (09/07/19 5:23 AM) (08/28 10:20 PM) Respiratory Rate [16-30 14 br/min 18 br/min 18 br/mi n br/min] *L* (09/06/19 10:20 PM) (09/06/19 3: 50 PM) (09/07/19 9:26 AM) Temperature [96.8-100.4 97.6 DegF 98 DegF 98.2 Deg F DegF] (09/07/19 9:26 AM) (09/06/19 10:20 PM) (09/06/19 3:50 PM) Mode of Delivery (Oxygen) Room air Room air Room a ir (09/07/19 9:26 AM) (09/07/19 5:23 AM) (09/06/19 10:20 PM) Blood pressure sites Leg, left Arm, right Arm, right (09/07/19 9:26 AM) (09/07/19 5:23 AM) (09/06/19 10:20 PM) Temperature Route Oral Oral Oral (09/07/19 9:26 AM) (09/06/19 10:20 PM) (09/06/19 3:50 PM)
--- OUTSIDE RECORDS SUMMARY | 2022-07-30 02:01 | XMS_ITS ---
:1995 Author Care Team Providers Name Role Phone MARINA BATISTA MD Primary Care Provider [phone] Allergies Code Code System Name Reaction Severity Status Onset 2175 RxNorm Cefaclor ? ? Active ? Medications Name Status Start Date Stop Date ? ? acetaminophen 500 mg tablet Active ? Not available TAKE 1 TABLET BY ORAL ROUTE EVERY 4 6 H OURS NEEDED MAX 8 TABLETS PER 24HRS FOR HEADACHE aripiprazole 10 mg tablet Active ? Not av ailable aripiprazole 20 mg tablet Active ? Not av ailable benztropine 1 mg tablet Active ? Not avai lable clonidine HCl 0.1 mg tablet Active ? Not available escitalopram 10 mg tablet Active ? Not av ailable haloperidol 10 mg tablet Active ? Not john ilable haloperidol 20 mg tablet Active ? Not john ilable haloperidol 5 mg tablet Active ? Not avai lable hydroxyzine HCl 25 mg tablet Active ? Not available TAKE 2 TABLETS BY MOUTH TWICE DAILY NEEDED FOR ANXIETY OR SL EEP hydroxyzine HCl 50 mg tablet Active ? Not available Thera-M 9 mg iron-400 mcg tablet Active ? Not available TAKE 1 TABLET BY MOUTH EVERY DAY Problems None recorded. Procedures None recorded. Results Lab Results Date Name Specimen Result Interpretation Description Value Range Status Address ? 07/28/2020 SARS CoV 2 RNA ? Covid-19, [facility] ? ? Final [facility] Reference (COVID-19), QL, L aboratories: [address], [place] [place] Specimen Past Encounters None recorded. Social History None recorded. Vaccine List None recorded. Plan of Care Reminders Provider Appointments None recorded. ? ? Lab None recorded. ? ? Referral None recorded. ? ? Procedures None recorded. ? ? Surgeries None recorded. ? ? Imaging None recorded. ? ? Vitals Blood Pressure 114/74 mm[Hg]
[2022-07-30 02:22] LABS: COVID-19 Test Negative (Negative)
[2022-07-30] MEDS: LORazepam 1 MG TABLET PO (03:10)
--- NOTE | 2022-07-30 03:12 | PC.NURSE ---
pt sitting up on chair, then jumps up from chair pacing back and forth saying im sorry i had a bad dream even though patient had not fallen asleep. patient apologizing for being rude, saying im sorry for being rude, this is why i dont listen to them referring to the voices in his head. patient restless, pacing back and forth. auditory, visual hallucinations present. patient re directable and calm, cooperative, offered 1mg ativan po for anxiety and thoughts. will continue to monitor.
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
[2022-07-30] MEDS: OLANZapine 10 MG TABLET 20 MG PO (03:51)
[2022-07-30] MEDS: Nicotine 21 MG PATCH.TD24 TRANSDERMA (03:53)
--- NOTE | 2022-07-30 04:35 | PC.NURSE ---
pt challenging staff members - becoming agitated and restless -throwing ice on ground, refusing blood work, being inappropriate with staff members - pt redirected back to his room multiple times but not listening . security called, patient given po zyprexa and escorted back to room by staff and security. patient now asleep on stretcher - will reattempt blood work and urine sample when patient wakes back up and is more cooperative.
--- NOTE | 2022-07-30 06:24 | PC.NURSE ---
pt sleeping comfortably on stretcher - respirations even and unlabored. no apparent distress
--- NOTE | 2022-07-30 10:52 | PC.NURSE ---
Addendum entered by Adalberto Ledezma 07/30/22 12:29: Yanely aware of patient refusing vital signs Original Note: Patient refusing to speak to and receive vital signs from this RN
--- NOTE | 2022-07-30 12:15 | PC.NURSE ---
[facility] called to inform this RN that the patient has a warrant. Yanely and team notified.
[2022-07-30 12:42] LABS: Appearance Urine Clear; Color Urine Yellow; Glucose Urine UA Negative (Negative); Leukocyte Esterase Urine Negative (Negative); Nitrite Urine Negative (Negative); Specific Gravity - Urine 1.015 (1.005-1.025); Urine Blood Negative (Negative); Urine Ketones 80 mg/dL (Negative); Urine Protein Negative (Neg-Trace)
[2022-07-30 13:04] LABS: Amphetamine Screen Urine Not Detected (Not Detect); Barbiturates, Urine Not Detected (Not Detect); Benzodiazepines Screen Urine Not Detected (Not Detect); Cannabinoid Screen Urine POSITIVE (Not Detect); Cocaine Screen Urine Not Detected (Not Detect); Fentanyl, urine Not Detected (Not Detect); Opiate Screen Urine Not Detected (Not Detect); Phencyclidine Screen Urine Not Detected (Not Detect)
--- NOTE | 2022-07-30 14:16 | PC.NURSE ---
Mother Laly Sanchez states she is legal guardian and wants to be contacted. [phone]
[2022-07-30 14:20] LABS: MANUAL DIFF FLAG NO
[2022-07-30 14:21] LABS: Basophils Percent Auto 0.3 % (0-2); Eosinophils Absolute Auto 0.1 X10*3/uL (0.0-0.4); Eosinophils Percent Auto 1.5 % (0-4); Hematocrit 40.8 % (42.0-52.0); Hemoglobin 13.5 g/dl (14.0-18.0); Imm Gran Abs Auto 0.01 X10*3/uL (0.00-0.03); Imm Gran Pct Auto 0.2 % (0.0-0.4); Lymphocytes Absolute Auto 1.7 X10*3/uL (1.2-4.9); Lymphocytes Percent Auto 28.1 % (20-40); Mean Corpuscular HGB Conc 33.1 g/dl (31.0-36.0); Mean Corpuscular Hemoglobin 26.3 pg (27.0-33.0); Mean Corpuscular Volume 79.5 fL (80.0-98.0); Monocytes Absolute Auto 0.6 X10*3/uL (0.1-1.2); Monocytes Percent Auto 9.5 % (2-11); Neutrophils Absolute Auto 3.7 x10*3/uL (2.0-8.3); Neutrophils Percent Auto 60.4 % (45-73); Platelet Count 217 X10*3/uL (160-400); Red Blood Count 5.13 X10*6/uL (4.60-5.80); Red Cell Distribution Width 14.2 % (11.0-16.0); White Blood Count 6.1 X10*3/uL (4.8-10.8)
[2022-07-30 14:39] LABS: Lithium < 0.04 mmol/L (0.60-1.20)
[2022-07-30 14:42] LABS: Acetaminophen LAB < 1 mcg/mL (<30); Alanine Aminotransferase 21 U/L (0-40); Albumin Level 4.6 g/dL (3.5-5.0); Alkaline Phosphatase 54 U/L (39-117); Anion Gap 16 (12-20); Aspartate Amino Transferase 25 U/L (5-37); Bilirubin Total 0.5 mg/dL (0.0-1.0); Blood Urea Nitrogen 12 mg/dL (9-16); Calcium 9.6 mg/dL (8.4-10.2); Carbon Dioxide 23 mmol/L (22-29); Chloride 104 mmol/L (96-108); Creatinine Clr Calc Pharmacy 103.4; Estimated Glomerular Filt Rate > 60; Ethanol < 10 mg/dL; Glucose Random 129 mg/dL (60-115); Magnesium 2.4 mg/dL (1.6-2.6); Potassium 3.3 mmol/L (3.3-5.1); Salicylate < 5.0 mg/dL (15-30); Sodium 140 mmol/L (135-145)
[2022-07-30 16:20] VITALS: BP 127/81; PULSE 76; RESP 16; TEMP 36; O2SAT 98
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
[2022-07-30] MEDS: Nicotine Polacrilex 2 MG GUM 4 MG BUCCAL (19:47)
--- NOTE | 2022-07-31 | ECG_ITS ---
Test Reason : qtc check Blood Pressure : / mmHG Vent. Rate : 051 BPM Atrial Rate : 051 BPM P-R Int : 118 ms QRS Dur : 102 ms QT Int : 436 ms P-R-T Axes : 058 -28 032 degrees QTc Int : 401 ms Sinus bradycardia Intra-ventricular conduction delay Borderline ECG When compared with ECG of 03-JUN-2022 19:58, Vent. rate has decreased BY 34 BPM QT has shortened Referred By: Nenita Godoy Electronically Signed By:KELSY SORENSEN MD
[2022-07-31] MEDS: Nicotine Polacrilex 2 MG GUM 4 MG BUCCAL (06:28)
[2022-07-31 07:00] VITALS: BMI 22.6
[2022-07-31] MEDS: HaloperidoL 1 MG TABLET 2 MG PO ×2 (08:02→19:21)
[2022-07-31] MEDS: OLANZapine ODT 10 MG TAB.RAPDIS TRANSLINGU ×2 (08:02→14:31)
[2022-07-31] MEDS: Lithium Carbonate 300 MG CAPSULE 600 MG PO ×2 (08:02→19:21)
[2022-07-31] MEDS: Escitalopram Oxalate 10 MG TABLET PO (08:03)
[2022-07-31] MEDS: Propranolol HCL 20 MG TABLET PO ×2 (08:03→19:21)
[2022-07-31] MEDS: Benztropine Mesylate 1 MG TABLET PO ×2 (08:03→19:21)
[2022-07-31 08:06] VITALS: BP 118/80; PULSE 80; RESP 18; TEMP 36.1; O2SAT 100
[2022-07-31 09:02] LABS: Cholesterol 177 mg/dL; Estimated Average Glucose 103 mg/dL; HDL Cholesterol 54 mg/dL; Hemoglobin A1c % 5.2 %; LDL Cholesterol Calculated 110 mg/dl; Magnesium 2.1 mg/dL (1.6-2.6); Triglycerides 66 mg/dL
[2022-07-31 09:26] LABS: Free T4 (Free Thyroxine) 1.18 ng/dL (0.71-1.85); Thyroid Stimulating Hormone 1.17 uIU/mL (0.32-4.0)
[2022-07-31 10:48] LABS: Vitamin B12 1221 pg/mL (200-900)
[2022-07-31] MEDS: Acetaminophen 325 MG TABLET 650 MG PO (14:35)
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
[2022-07-31 19:20] VITALS: BP 132/66; PULSE 76; TEMP 37
[2022-08-01] MEDS: Propranolol HCL 20 MG TABLET PO (08:10)
[2022-08-01] MEDS: Escitalopram Oxalate 10 MG TABLET PO (08:10)
[2022-08-01] MEDS: OLANZapine ODT 10 MG TAB.RAPDIS TRANSLINGU ×2 (08:10→14:04)
[2022-08-01] MEDS: Lithium Carbonate 300 MG CAPSULE 600 MG PO (08:10)
[2022-08-01] MEDS: Benztropine Mesylate 1 MG TABLET PO (08:11)
[2022-08-01] MEDS: HaloperidoL 1 MG TABLET 2 MG PO (08:11)
[2022-08-01 08:13] VITALS: BP 107/59; PULSE 68; RESP 16; TEMP 36.4; O2SAT 98
[2022-08-01] MEDS: LORazepam 1 MG TABLET PO ×2 (12:34→21:38)
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
[2022-08-02 06:00] VITALS: BP 114/57; PULSE 61; RESP 18; TEMP 36.4; O2SAT 100
[2022-08-02] MEDS: LORazepam 1 MG TABLET PO ×2 (06:19→22:12)
[2022-08-02] MEDS: hydrOXYzine HCL 25 MG TABLET PO (06:20)
[2022-08-02] MEDS: Escitalopram Oxalate 5 MG TABLET 15 MG PO (09:13)
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
[2022-08-02] MEDS: Propranolol HCL 20 MG TABLET PO ×2 (11:15→22:11)
[2022-08-02] MEDS: busPIRone HCl 10 MG TABLET PO ×3 (11:15→22:11)
[2022-08-02] MEDS: OLANZapine ODT 10 MG TAB.RAPDIS TRANSLINGU ×3 (12:12→22:11)
[2022-08-02 17:03] VITALS: BP 137/85; PULSE 69; RESP 18; O2SAT 98
[2022-08-02] MEDS: Nicotine Polacrilex 2 MG GUM 4 MG BUCCAL (17:03)
[2022-08-02] MEDS: traZODone HCL 50 MG TABLET PO (22:11)
[2022-08-02] MEDS: Benztropine Mesylate 1 MG TABLET PO (22:21)
[2022-08-02] MEDS: HaloperidoL 1 MG TABLET 2 MG PO (22:33)
[2022-08-03] MEDS: LORazepam 1 MG TABLET PO ×3 (01:50→11:59)
[2022-08-03] MEDS: busPIRone HCl 10 MG TABLET PO ×3 (08:27→20:26)
[2022-08-03] MEDS: Benztropine Mesylate 1 MG TABLET PO ×2 (08:27→20:26)
[2022-08-03] MEDS: HaloperidoL 1 MG TABLET 2 MG PO ×2 (08:27→20:26)
[2022-08-03] MEDS: Escitalopram Oxalate 5 MG TABLET 15 MG PO (08:27)
[2022-08-03] MEDS: OLANZapine ODT 10 MG TAB.RAPDIS TRANSLINGU ×3 (08:27→20:26)
[2022-08-03 09:45] VITALS: BP 109/61; PULSE 61; RESP 18; TEMP 36.9; O2SAT 98
[2022-08-03] MEDS: Propranolol HCL 20 MG TABLET PO ×2 (09:46→20:26)
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
[2022-08-03 17:21] VITALS: BP 125/60; PULSE 77; TEMP 36.7; O2SAT 95
[2022-08-03] MEDS: traZODone HCL 50 MG TABLET PO (20:26)
[2022-08-04] MEDS: hydrOXYzine HCL 25 MG TABLET PO ×2 (03:47→16:21)
[2022-08-04] MEDS: LORazepam 1 MG TABLET PO ×5 (03:47→22:06)
[2022-08-04] MEDS: traZODone HCL 50 MG TABLET PO ×3 (03:47→22:06)
[2022-08-04] MEDS: HaloperidoL 1 MG TABLET 2 MG PO (08:33)
[2022-08-04 08:47] VITALS: BP 121/64; PULSE 62; RESP 16; TEMP 37.1; O2SAT 99
[2022-08-04] MEDS: Propranolol HCL 20 MG TABLET PO ×2 (08:59→19:16)
[2022-08-04] MEDS: OLANZapine ODT 10 MG TAB.RAPDIS TRANSLINGU ×3 (09:34→19:11)
[2022-08-04] MEDS: busPIRone HCl 10 MG TABLET PO ×3 (09:43→19:12)
[2022-08-04] MEDS: Benztropine Mesylate 1 MG TABLET PO ×2 (09:43→19:11)
[2022-08-04] MEDS: buPROPion HCL 75 MG TABLET PO (15:12)
[2022-08-04 16:30] VITALS: BP 118/75; PULSE 94; RESP 16; TEMP 36.5; O2SAT 98
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
[2022-08-04 19:15] VITALS: BP 102/54; PULSE 79
[2022-08-05] MEDS: hydrOXYzine HCL 25 MG TABLET PO ×3 (06:25→20:58)
[2022-08-05] MEDS: LORazepam 1 MG TABLET PO ×4 (06:25→21:51)
[2022-08-05 08:01] VITALS: BP 122/88; PULSE 63; RESP 16; TEMP 36.4; O2SAT 100
[2022-08-05] MEDS: buPROPion HCL 75 MG TABLET PO (08:37)
[2022-08-05] MEDS: Propranolol HCL 20 MG TABLET PO ×2 (10:03→20:11)
[2022-08-05] MEDS: busPIRone HCl 10 MG TABLET PO ×3 (10:04→20:10)
[2022-08-05] MEDS: OLANZapine ODT 10 MG TAB.RAPDIS TRANSLINGU ×3 (10:04→20:11)
[2022-08-05] MEDS: Benztropine Mesylate 1 MG TABLET PO ×2 (10:04→20:10)
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
[2022-08-05 19:34] VITALS: BP 112/57; PULSE 79
[2022-08-05] MEDS: Nicotine Polacrilex 2 MG GUM 4 MG BUCCAL ×2 (20:03→23:41)
[2022-08-05] MEDS: traZODone HCL 50 MG TABLET PO (20:11)
--- NOTE | 2022-08-05 22:46 | PC.NURSE ---
Pt was visited by his sister at 181. After the visitor left her purse at the lead front desk agent, a pack of cigarettes remained visible in the pocket of her hoodie. T/w asked the visitor to leave the cigarettes at the nurses' station. During the visit, pt and the visitor appeared to behave bizarrely. Pt asked his sister to swap her hoodie for pt's sweater. Pt requested privacy so that the clothes could be changed. T/w directed both pt and the visitor to the nurses' station, where the hoodie was searched for contraband before it was given to pt.
[2022-08-05] MEDS: HaloperidoL 5 MG TABLET PO (23:38)
[2022-08-06] MEDS: LORazepam 1 MG TABLET PO ×3 (02:05→17:40)
[2022-08-06] MEDS: Nicotine Polacrilex 2 MG GUM 4 MG BUCCAL ×2 (02:58→10:08)
[2022-08-06] MEDS: buPROPion HCL 75 MG TABLET PO ×2 (08:05→09:20)
[2022-08-06] MEDS: Propranolol HCL 20 MG TABLET PO (08:08)
[2022-08-06] MEDS: OLANZapine ODT 10 MG TAB.RAPDIS TRANSLINGU ×2 (08:08→14:20)
[2022-08-06] MEDS: Benztropine Mesylate 1 MG TABLET PO ×2 (08:08→22:02)
[2022-08-06] MEDS: busPIRone HCl 10 MG TABLET PO ×3 (08:08→22:02)
[2022-08-06 08:13] VITALS: BP 115/60; PULSE 80; RESP 18; TEMP 36.3; O2SAT 100
[2022-08-06] MEDS: HaloperidoL 5 MG TABLET PO (10:07)
[2022-08-06] MEDS: hydrOXYzine HCL 25 MG TABLET PO ×2 (10:08→22:03)
[2022-08-06] MEDS: Paliperidone Palmitate 234 MG/1.5 ML SYRINGE IM (13:29)
[2022-08-06 16:53] VITALS: BP 111/66; PULSE 73; RESP 18; TEMP 36.6; O2SAT 98
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
[2022-08-07] MEDS: LORazepam 1 MG TABLET PO ×3 (04:10→21:22)
[2022-08-07] MEDS: hydrOXYzine HCL 25 MG TABLET PO ×3 (06:39→18:39)
[2022-08-07 07:00] VITALS: BMI 24.1
[2022-08-07] MEDS: buPROPion HCl XL 150 MG TAB.ER.24H PO (08:17)
[2022-08-07] MEDS: busPIRone HCl 10 MG TABLET PO (08:17)
[2022-08-07] MEDS: Benztropine Mesylate 1 MG TABLET PO ×2 (08:17→21:18)
[2022-08-07 08:20] VITALS: BP 136/76; PULSE 70; RESP 16; TEMP 36.3; O2SAT 97
[2022-08-07] MEDS: Nicotine Polacrilex 2 MG GUM 4 MG BUCCAL ×3 (08:55→15:55)
[2022-08-07] MEDS: clonazePAM 1 MG TABLET PO ×2 (11:39→18:33)
[2022-08-07] MEDS: HaloperidoL 5 MG TABLET PO ×3 (13:26→21:17)
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
[2022-08-07 17:45] VITALS: BP 142/86; PULSE 16; RESP 16; TEMP 35.8; O2SAT 100
[2022-08-07 21:15] VITALS: BP 113/57; PULSE 68; RESP 16; TEMP 36.6; O2SAT 100
[2022-08-07] MEDS: Topiramate 25 MG TABLET PO (21:18)
--- NOTE | 2022-08-08 03:09 | PC.NURSE ---
Pt was given haldol 5mg early this evening as he was somewhat restless, agitated and pacing. TW was advised of earlier outburst in bathroom (20 minutes prior). Pt requested meds and TW was concerned of pt lability and changing his mind on medication given his earlier outburst and ongoing lability.
[2022-08-08] MEDS: LORazepam 1 MG TABLET PO ×4 (04:26→21:45)
[2022-08-08 06:00] VITALS: BP 110/56; PULSE 72; RESP 18; TEMP 36.4; O2SAT 99
[2022-08-08] MEDS: buPROPion HCl XL 150 MG TAB.ER.24H PO (08:48)
[2022-08-08] MEDS: Topiramate 25 MG TABLET PO ×2 (08:48→20:11)
[2022-08-08] MEDS: Benztropine Mesylate 1 MG TABLET PO ×2 (08:49→20:11)
[2022-08-08] MEDS: clonazePAM 1 MG TABLET PO ×2 (08:49→20:11)
[2022-08-08] MEDS: HaloperidoL 5 MG TABLET PO ×3 (08:49→21:45)
[2022-08-08] MEDS: hydrOXYzine HCL 25 MG TABLET PO ×2 (14:38→20:11)
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
[2022-08-08 20:05] VITALS: BP 123/77; PULSE 79; RESP 18; TEMP 36.7; O2SAT 98
[2022-08-08] MEDS: traZODone HCL 100 MG TABLET PO (21:45)
[2022-08-08] MEDS: Nicotine Polacrilex 2 MG GUM 4 MG BUCCAL (22:54)
[2022-08-09] MEDS: hydrOXYzine HCL 25 MG TABLET PO ×2 (01:56→19:00)
[2022-08-09] MEDS: LORazepam 1 MG TABLET PO ×4 (01:56→20:23)
[2022-08-09] MEDS: clonazePAM 1 MG TABLET PO ×2 (02:37→09:40)
[2022-08-09] MEDS: HaloperidoL 5 MG TABLET PO ×3 (02:37→15:29)
[2022-08-09 06:00] VITALS: BP 99/60; PULSE 81; RESP 16; TEMP 36.8; O2SAT 98
[2022-08-09] MEDS: buPROPion HCl XL 150 MG TAB.ER.24H PO (09:39)
[2022-08-09] MEDS: Topiramate 25 MG TABLET PO ×2 (09:39→20:23)
[2022-08-09] MEDS: Benztropine Mesylate 1 MG TABLET PO ×2 (09:40→20:23)
[2022-08-09] MEDS: Nicotine Polacrilex 2 MG GUM 4 MG BUCCAL (10:46)
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
[2022-08-09 20:20] VITALS: BP 115/57; PULSE 74; RESP 16; TEMP 36.6; O2SAT 100
[2022-08-10 05:53] VITALS: BMI 23.0
[2022-08-10 06:00] VITALS: BP 102/60; PULSE 75; RESP 16; TEMP 36.4; O2SAT 99
[2022-08-10] MEDS: LORazepam 1 MG TABLET PO (06:00)
[2022-08-10] MEDS: clonazePAM 1 MG TABLET PO ×2 (06:42→19:14)
[2022-08-10] MEDS: buPROPion HCl XL 300 MG TAB.ER.24H PO (08:13)
[2022-08-10] MEDS: HaloperidoL 5 MG TABLET PO ×2 (08:13→14:09)
[2022-08-10] MEDS: Benztropine Mesylate 1 MG TABLET PO ×2 (08:13→20:27)
[2022-08-10] MEDS: Topiramate 25 MG TABLET PO ×2 (08:13→20:27)
[2022-08-10] MEDS: hydrOXYzine HCL 25 MG TABLET PO (08:31)
[2022-08-10] MEDS: Acetaminophen 325 MG TABLET 650 MG PO (09:30)
[2022-08-10] MEDS: Ibuprofen 800 MG TABLET PO (09:31)
[2022-08-10] MEDS: LORazepam 0.5 MG TABLET PO ×2 (14:09→20:27)
[2022-08-10] MEDS: chlorproMAZINE HCl 25 MG TABLET PO ×2 (15:12→20:27)
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
[2022-08-10 18:00] VITALS: BP 111/54; PULSE 90; RESP 16; TEMP 36.8; O2SAT 99
[2022-08-10] MEDS: traZODone HCL 100 MG TABLET PO (20:27)
[2022-08-11] MEDS: clonazePAM 1 MG TABLET PO (05:45)
[2022-08-11] MEDS: LORazepam 0.5 MG TABLET PO ×3 (06:26→17:26)
[2022-08-11 08:00] VITALS: BP 96/56; PULSE 78; RESP 18; TEMP 36.2; O2SAT 100
[2022-08-11] MEDS: buPROPion HCl XL 300 MG TAB.ER.24H PO (08:08)
[2022-08-11] MEDS: Topiramate 25 MG TABLET PO (08:08)
[2022-08-11] MEDS: Benztropine Mesylate 1 MG TABLET PO (08:08)
[2022-08-11] MEDS: Acetaminophen 325 MG TABLET 650 MG PO (08:33)
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
[2022-08-11] MEDS: chlorproMAZINE HCl 25 MG TABLET PO (17:26)
[2022-08-11 23:00] VITALS: BP 110/70; PULSE 74; TEMP 36.8; O2SAT 98
[2022-08-12] MEDS: Acetaminophen 325 MG TABLET 650 MG PO (06:35)
[2022-08-12 08:04] VITALS: BP 108/57; PULSE 72; RESP 16; TEMP 36.6; O2SAT 100
[2022-08-12] MEDS: buPROPion HCl XL 300 MG TAB.ER.24H PO (08:05)
[2022-08-12] MEDS: clonazePAM 0.5 MG TABLET PO (08:05)
[2022-08-12] MEDS: Topiramate 25 MG TABLET PO (08:06)
[2022-08-12] MEDS: Benztropine Mesylate 1 MG TABLET PO (08:06)
--- NOTE | 2022-08-12 10:07 | PC.NURSE ---
Patient discharged into police custody. Belongings returned. Discharge packet given to police officers.
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
== END 2022-08-12 10:03 | disposition other institution (70) | DRG 885 ==
LOC: HO.ED 12:40 → HO.PM5 15:15 → HO.PADLT16 08-07 18:07
PROVIDERS: Physician Assistant; Admitting Provider Clinical Nurse Specialist Psychiatric/Mental Health, Adult; Emergency Provider Emergency Medicine Emergency Medical Services; Visit Provider Clinical Nurse Specialist Psychiatric/Mental Health, Adult
DX: F25.0 Schizoaffective disorder, bipolar type (principal); F17.290 Nicotine dependence, other tobacco product, uncomplicated; Z20.822 Contact with and (suspected) exposure to COVID-19; Z88.0 Allergy status to penicillin; Z79.899 Other long term (current) drug therapy
CPT/HCPCS: 36415; 80053; 80061; 80143; 80178; 80179; 80307; 81003; 82077; 82607; 82746; 83036; 83735; 84439; 84443; 85025; 87635; 90792; 93005; 99285; J2426

== ENCOUNTER 2024-04-07 10:37 | Outpatient (REF) | payer OTHER, SELFPAY ==
[2024-04-07 12:44] LABS: TSH reflex Free T4 1.33 uIU/mL (0.32-4.0)
== END 2024-04-07 10:38 | disposition home or self-care (01) ==
LOC: HO.HHCL 10:37
PROVIDERS: Visit Provider Internal Medicine
DX: E04.9 Nontoxic goiter, unspecified (principal)
CPT/HCPCS: 36415; 84443

== ENCOUNTER 2024-07-22 09:59 | Outpatient (REF) | payer OTHER, SELFPAY ==
[2024-07-22 10:23] LABS: MANUAL DIFF FLAG NO
[2024-07-22 10:49] LABS: Basophils Percent Auto 0.3 % (0-2); Eosinophils Absolute Auto 0.1 X10*3/uL (0.0-0.4); Eosinophils Percent Auto 1.7 % (0-4); Hematocrit 41.2 % (42.0-52.0); Hemoglobin 13.6 g/dl (14.0-18.0); Imm Gran Abs Auto 0.01 X10*3/uL (0.00-0.03); Imm Gran Pct Auto 0.2 % (0.0-0.4); Lymphocytes Absolute Auto 1.9 X10*3/uL (1.2-4.9); Lymphocytes Percent Auto 33.4 % (20-40); Mean Corpuscular Hemoglobin 26.9 pg (27.0-33.0); Mean Corpuscular Volume 81.4 fL (80.0-98.0); Mean Platelet Volume 9.8 fL (9.4-12.4); Monocytes Absolute Auto 0.5 X10*3/uL (0.1-1.2); Monocytes Percent Auto 8.5 % (2-11); Neutrophils Absolute Auto 3.2 x10*3/uL (2.0-8.3); Neutrophils Percent Auto 55.9 % (45-73); Platelet Count 204 X10*3/uL (160-400); Red Blood Count 5.06 X10*6/uL (4.60-5.80); Red Cell Distribution Width 14.3 % (11.0-16.0); White Blood Count 5.7 X10*3/uL (4.8-10.8)
[2024-07-22 10:57] LABS: Estimated Average Glucose 100 mg/dL; Hemoglobin A1C 113.6609 umol/L; Hemoglobin A1c % 5.1 % (<6.0); Total Hemoglobin (HGBA1C) 3505.1197 umol/L
[2024-07-22 11:14] LABS: Alanine Aminotransferase 37 U/L (0-40); Albumin Level 4.5 g/dL (3.5-5.0); Alkaline Phosphatase 51 U/L (39-117); Anion Gap 12 (12-20); Aspartate Amino Transferase 45 U/L (5-37); Bilirubin Total 0.3 mg/dL (0.0-1.0); Blood Urea Nitrogen 9 mg/dL (9-16); Calcium 9.5 mg/dL (8.4-10.2); Carbon Dioxide 28 mmol/L (22-29); Chloride 104 mmol/L (96-108); Cholesterol 193 mg/dL (<200); Estimated Glomerular Filt Rate > 60; Glucose Random 92 mg/dL (60-115); HDL Cholesterol 61 mg/dL (>40); LDL Cholesterol Calculated 114 mg/dL (<100); Potassium 4.2 mmol/L (3.3-5.1); Sodium 140 mmol/L (135-145); Total Protein 7.1 g/dL (6.5-8.0); Triglycerides 92 mg/dL (<150)
[2024-07-22 11:30] LABS: Thyroid Stimulating Hormone 2.08 uIU/mL (0.32-4.0)
== END 2024-07-22 10:00 | disposition home or self-care (01) ==
LOC: HO.LAB 09:59
PROVIDERS: Visit Provider Nurse Practitioner Psychiatric/Mental Health
DX: Z79.899 Other long term (current) drug therapy (principal)
CPT/HCPCS: 36415; 80053; 80061; 83036; 84439; 84443; 85025

== ENCOUNTER 2024-10-01 21:11 | Emergency (ER) | payer OTHER, SELFPAY ==
[2024-10-01 21:14] VITALS: BP 113/75; PULSE 64; RESP 16; TEMP 36.9; O2SAT 100; BMI 21.9
[2024-10-01 21:30] LABS: MANUAL DIFF FLAG NO
[2024-10-01 21:32] LABS: Basophils Percent Auto 0.2 % (0-2); Eosinophils Absolute Auto 0.1 X10*3/uL (0.0-0.4); Eosinophils Percent Auto 0.8 % (0-4); Hematocrit 43.5 % (42.0-52.0); Hemoglobin 14.4 g/dl (14.0-18.0); Imm Gran Abs Auto 0.01 X10*3/uL (0.00-0.03); Imm Gran Pct Auto 0.1 % (0.0-0.4); Lymphocytes Absolute Auto 2.8 X10*3/uL (1.2-4.9); Lymphocytes Percent Auto 32.8 % (20-40); Mean Corpuscular HGB Conc 33.1 g/dl (31.0-36.0); Mean Corpuscular Hemoglobin 26.5 pg (27.0-33.0); Mean Platelet Volume 9.4 fL (9.4-12.4); Monocytes Absolute Auto 0.6 X10*3/uL (0.1-1.2); Monocytes Percent Auto 6.5 % (2-11); Neutrophils Absolute Auto 5.1 x10*3/uL (2.0-8.3); Neutrophils Percent Auto 59.6 % (45-73); Platelet Count 188 X10*3/uL (160-400); Red Blood Count 5.44 X10*6/uL (4.60-5.80); Red Cell Distribution Width 13.3 % (11.0-16.0); White Blood Count 8.6 X10*3/uL (4.8-10.8)
[2024-10-01 21:43] LABS: Anion Gap 12 (12-20); Blood Urea Nitrogen 10 mg/dL (9-16); Calcium 9.6 mg/dL (8.4-10.2); Carbon Dioxide 29 mmol/L (22-29); Chloride 105 mmol/L (96-108); Creatinine Clr Calc Pharmacy 123.2; Estimated Glomerular Filt Rate > 60; Glucose Random 122 mg/dL (60-115); Potassium 3.7 mmol/L (3.3-5.1); Sodium 142 mmol/L (135-145)
[2024-10-01 22:08] LABS: Influenza A PCR NEGATIVE (Negative); Influenza B PCR NEGATIVE (Negative); Resp Syncy Virus RNA Qual PCR NEGATIVE (Negative); SARS COV2 PCR INHOUSE NEGATIVE (Negative)
[2024-10-02] MEDS: Ibuprofen 600 MG TABLET PO (00:18)
--- NOTE | 2024-10-02 00:29 | ED_ITS ---
HPI - General Adult General Chief complaint: General Medical Stated complaint: vomiting,headache Time Seen by Provider: 10/02/24 00:22 History of Present Illness HPI narrative: Patient is a 29-year-old male presents today with having headache nausea vomiting. There is no trauma. Patient stated that he started having a headache after going to his family's house. His family is sick with RSV. Patient COVID tests all negative. Patient denies any chest pain no focal weakness. It is associated with nausea. No history of migraine. No sudden in the family. Patient is from home. No neck pain. No fever. Related Data Home Medications ?Medication ?Instructions ?Recorded ?Confirmed benztropine 1 mg tablet 1 tab PO BID 06/04/22 07/30/22 Previous Rx's ?Medication ?Instructions ?Recorded bupropion HCl 300 mg 24 hr tablet, 300 mg PO DAILY #0 tabs 08/12/22 extended release clonazepam 0.5 mg tablet 0.5 mg PO BID PRN Anxiety #0 tabs 08/12/22 nicotine (polacrilex) 2 mg gum 4 mg buccal Q2H PRN Nicotine 08/12/22 Cravings #0 ea paliperidone palmitate 234 mg/1.5 234 mg (1.5 mL) IM Q30D #0 mL 08/12/22 mL intramuscular syringe (Invega Sustenna) topiramate 25 mg tablet 25 mg PO BID #0 tabs 08/12/22 trazodone 100 mg tablet 100 mg PO BEDTIME PRN Insomnia #0 08/12/22 tabs Allergies Allergy/AdvReac Type Severity Reaction Status Date / Time [facility]efaclor [[facility] Allergy Unknown RASH Verified 10/01/24 21:15 Penicillins Allergy Unknown Verified 10/01/24 21:15 Review of Systems 2 Review of Systems: Positive headache Yes all other systems are reviewed and are negative PMFSH Past Medical History Attestation statement: The following information was validated with the patient. Medical History Schizoaffective disorder, bipolar type Non compliance w medication regimen Schizophrenia Social History Social History Household Members: Other Household Members Other:: detention Housing: Other Housing Other:: detention Do you presently have visiting nurse or other home services: Yes (PT LIVES IN A [facility]) Alcohol intake: former Patient Tobacco Use Status: Former Tobacco user Tobacco use type: Smokeless Tobacco Smoked in Last 30 Days: No e-Cigarette/Vaping Use: Currently Using Second Hand Smoke Exposure: Yes Use of substances other than those prescribed or required for medical reasons: No Substance Use Type: Marijuana Advance Directives: No service: No Current occupation: [employer] Sexual orientation: Straight/Heterosexual Physical Exam ED Vital Signs: Vital Signs - 24 hr 10/01/24 21:14 Temperature 98.5 F Pulse Rate 64 Respiratory Rate 16 Blood Pressure 113/75 Pulse Oximetry 100 Oxygen Delivery Method Room Air BMI result Body Mass Index 21.9 Appearance: Alert. Oriented X3. No acute distress. Eyes: Pupils equal, round and reactive to light. ENT: Pharynx normal. Neck: Normal inspection. Neck supple. No lymph nodes noted. No crepitus CVS: Normal heart rate and rhythm. Pulses normal. Normal S1 and S2 Respiratory: No respiratory distress. Breath sounds normal. No Wheezing. No rales Abdomen: Soft and nontender. No rigidity. No distention. good BS x4 Skin: Skin warm and dry. Normal skin color. Normal skin turgor. Extremities: No lower extremity edema. Neurovascular intact to all extremities. No Lacerations. No Rash Neuro: Oriented X 3. No motor deficit. No sensory deficit. Moving all extermities. No slurred speech Medications Administered Generic Name Dose Route Start Last Admin Trade Name Freq PRN Reason Stop Dose Admin Sodium Chloride 1,000 mls @ 999 mls/hr 10/02/24 00:30 10/02/24 00:49 Ns IV 10/02/24 01:30 999 mls/hr .Q1H1M HENRY Administration Discontinued Medications Generic Name Dose Route Start Last Admin Trade Name Freq PRN Reason Stop Dose Admin Diphenhydramine HCl 25 mg 10/02/24 00:26 10/02/24 00:48 Diphenhydramine Hcl 50 Mg/Ml Vial IVPUSH 10/02/24 00:27 25 mg ONCE ONE Administration Ibuprofen 600 mg 10/02/24 00:13 10/02/24 00:18 Ibuprofen 600 Mg Tablet PO 10/02/24 00:14 600 mg ONCE ONE Administration Ketorolac Tromethamine 15 mg 10/02/24 00:28 10/02/24 00:57 Ketorolac Tromethamine 15 Mg/Ml Vial IVPUSH 10/02/24 00:29 Not Given ONCE ONE Metoclopramide HCl 10 mg 10/02/24 00:26 10/02/24 00:48 Metoclopramide Hcl 10 Mg/2 Ml Vial IVPUSH 10/02/24 00:27 10 mg ONCE ONE Administration Medical Decision Making Medical Decision Making MDM Narrative: Patient presented with headache some nausea. There is no fever no chills. Took some Aleve at 19:00. There was no trauma. Patient stated the symptoms started after patient was exposed to family member with RSV. RSV COVID flu with tested. They are all negative. Patient was given migraine cocktail including Reglan fluids with good resolution of symptoms. Will discharge patient home. Currently in stable condition. Differential Diagnosis Differential Diagnoses: The differential diagnosis associated with the presentation includes Migraine headache, intracranial bleed Admission/Observation Consideration of admission/observation: Escalation of care including admission/observation considered Lab Data 10/01/24 21:25 10/01/24 21:25 Labs: Lab Results 10/01/24 Range/Units 21:25 WBC 8.6 (4.8-10.8) X10*3/uL RBC 5.44 (4.60-5.80) X10*6/uL Hgb 14.4 (14.0-18.0) g/dl Hct 43.5 (42.0-52.0) % MCV 80.0 (80.0-98.0) fL MCH 26.5 L (27.0-33.0) pg MCHC 33.1 (31.0-36.0) g/dl RDW 13.3 (11.0-16.0) % Plt Count 188 (160-400) X10*3/uL MPV 9.4 (9.4-12.4) fL Immature Gran % (Auto) 0.1 (0.0-0.4) % Neut % (Auto) 59.6 (45-73) % Lymph % (Auto) 32.8 (20-40) % [place] % (Auto) 6.5 (2-11) % Eos % (Auto) 0.8 (0-4) % Baso % (Auto) 0.2 (0-2) % Lymph # (Auto) 2.8 (1.2-4.9) X10*3/uL [place] # (Auto) 0.6 (0.1-1.2) X10*3/uL Eos # (Auto) 0.1 (0.0-0.4) X10*3/uL Baso # (Auto) 0.0 (0.0-0.2) X10*3/uL Abs Immat Gran (auto) 0.01 (0.00-0.03) X10*3/uL Absolute Neuts (auto) 5.1 (2.0-8.3) x10*3/uL Absolute Nucleated RBC 0.000 (0.0-0.012) X10*3/uL Nucleated RBC % (auto) 0.0 (0.0-0.2) /100WBC Sodium 142 (135-145) mmol/L Potassium 3.7 (3.3-5.1) mmol/L Chloride 105 (96-108) mmol/L Carbon Dioxide 29 (22-29) mmol/L Anion Gap 12 (12-20) BUN 10 (9-16) mg/dL Creatinine 0.78 (0.5-1.4) mg/dL Estim Creat Clear Calc 123.2 Estimated GFR > 60 Random Glucose 122 H (60-115) mg/dL Calcium 9.6 (8.4-10.2) mg/dL Influenza Type A (PCR) NEGATIVE (Negative) Influenza Type B (PCR) NEGATIVE (Negative) RSV RNA Qual (PCR) NEGATIVE (Negative) SARS-CoV-2 RNA (RT-PCR) NEGATIVE (Negative) Independent Historian Clinical information obtained from an independent historian. History obtained from or confirmed by: Other (jail staff) Chronic Conditions Psychiatric disorder Social Determinants Patient?s care significantly limited by Social Determinants of Health including: Problems related to primary support group and Unemployment Discharge Plan Discharge Clinical Impression: Headache, migraine Patient Disposition: Home, Self-Care Instructions: Migraine Headache (ED) Prescriptions: No Action benztropine 1 mg tablet 1 tab PO BID nicotine (polacrilex) 2 mg Gum 4 mg buccal Q2H PRN (Reason: Nicotine Cravings) Qty: 0 0RF clonazepam 0.5 mg Tablet 0.5 mg PO BID PRN (Reason: Anxiety) Qty: 0 0RF topiramate 25 mg Tablet 25 mg PO BID Qty: 0 0RF trazodone 100 mg Tablet 100 mg PO BEDTIME PRN (Reason: Insomnia) Qty: 0 0RF bupropion HCl 300 mg Tablet Extended Release 24 Hr 300 mg PO DAILY Qty: 0 0RF Invega Sustenna 234 mg/1.5 mL Syringe 234 mg IM Q30D Qty: 0 0RF Referrals: Jamison Wallis MD [Primary Care Provider] - 10/03/24 Print Language: Arabic
[2024-10-02] MEDS: Metoclopramide HCl 10 MG/2 ML VIAL IVPUSH (00:48)
[2024-10-02] MEDS: diphenhydrAMINE HCL 50 MG/ML VIAL 25 MG IVPUSH (00:48)
[2024-10-02] MEDS: 0.9 % Sodium Chloride 1,000 ML 999 ML IV (00:49)
[2024-10-02 01:19] VITALS: BP 109/59; PULSE 60; RESP 16; TEMP 36.9; O2SAT 100
[2024-10-02 02:13] VITALS: BP 109/59; PULSE 60; RESP 16; TEMP 36.9; O2SAT 100
== END 2024-10-02 02:14 | disposition home or self-care (01) ==
PROVIDERS: Emergency Provider Emergency Medicine Emergency Medical Services; PCP Internal Medicine
DX: G43.909 Migraine, unspecified, not intractable, without status migrainosus (principal); R11.2 Nausea with vomiting, unspecified; Z03.818 Encounter for observation for suspected exposure to other biological agents ruled out; F25.0 Schizoaffective disorder, bipolar type; F12.90 Cannabis use, unspecified, uncomplicated; Z87.891 Personal history of nicotine dependence; Z79.899 Other long term (current) drug therapy
CPT/HCPCS: 0241U; 80048; 85025; 96361; 96374; 96375; 99284; J1200; J2765

== ENCOUNTER 2025-08-15 08:51 | Emergency (ER) | payer OTHER, SELFPAY ==
[2025-08-15 09:03] VITALS: BP 118/71; PULSE 111; RESP 18; TEMP 36.6; O2SAT 98; BMI 26.6
--- NOTE | 2025-08-15 09:08 | ED_ITS ---
HPI - Allergic Reaction General Chief complaint: Allergic Reaction Stated complaint: Allergic Reaction Time Seen by Provider: 08/15/25 09:08 History of Present Illness ED Provider: Abbi Watts HPI narrative: 30-year-old male with medical history significant for schizoaffective disorder currently residing in a care home presents to the ED for evaluation of a whole- body rash described as only mildly itchy that began yesterday evening acutely on the left trunk. Patient reports he woke up this morning and noted that the rash was more widespread on the body including the legs, chest, abdomen and back, as well as the left side of the face. He denies taking any new medications, no recent antibiotics. No fever, chills. Denies any chest pain, shortness of breath or difficulty breathing. No itchiness or scratchiness in the throat. No difficulty swallowing or painful swallow. No abdominal pain, nausea or vomiting, urinary complaints. Reports that he is unsure if there was new detergents utilized on his clothing, denies using any new deodorants. No new topical lotions or creams. Reports yesterday he had an orange soda, which he does not usually have but no other new ingestions. No known food allergies. Denies any rash in the mouth. Patient is not on SSRIs. No recent illnesses, flu- like illnesses Related Data Home Medications ?Medication ?Instructions ?Recorded ?Confirmed benztropine 1 mg tablet 1 tab PO BID 06/04/22 Previous Rx's ?Medication ?Instructions ?Recorded bupropion HCl 300 mg 24 hr tablet, 300 mg PO DAILY #0 tabs 08/12/22 extended release clonazepam 0.5 mg tablet 0.5 mg PO BID PRN Anxiety #0 tabs 08/12/22 nicotine (polacrilex) 2 mg gum 4 mg buccal Q2H PRN Ayden otine 08/12/22 Cravings #0 ea paliperidone palmitate 234 mg/1.5 234 mg (1.5 mL) IM Q 30D #0 mL 08/12/22 mL intramuscular syringe (Invega Sustenna) topiramate 25 mg tablet 25 mg PO BID #0 tabs 2 trazodone 100 mg tablet 100 mg PO BEDTIME PRN Insomn ia #0 08/12/22 tabs prednisone 20 mg tablet 40 mg (2 x 20 mg) PO DAILY 5 days 08/15/25 #10 tabs Allergies Allergy/AdvReac Type Severity Reaction Status Date / Time cefaclor (From [facility]) Allergy Unknown RASH Verified 08/15/25 09:04 Penicillins Allergy Unknown Verified 08/15/25 09:04 Review of Systems Review of Systems: ROS is otherwise negative unless mentioned in HPI. [facility] Past Medical History Medical History Schizoaffective disorder, bipolar type Non compliance w medication regimen Schizophrenia Social History Social History Household Members: Other Household Members Other:: care home Housing: Other Housing Other:: care home Do you presently have visiting nurse or other home services: Yes (PT [facility]IV[facility] IN [facility]) Alcohol intake: former Patient Tobacco Use Status: Former Tobacco user Tobacco use type: Smokeless Tobacco e-Cigarette/Vaping Use: Currently Using Second Hand Smoke Exposure: Yes Substance Use Type: Marijuana Advance Directives: No Advance Directives Information Provided: Yes Do you have a plan to hurt others: No Plan service: No Current occupation: [employer] Sexual orientation: Straight/Heterosexual Physical Exam ED Exam Exam: Nursing notes and vital signs reviewed. Constitutional: Well-appearing, NAD. Alert. Oriented X3. Eyes: EOMI. ENT: Oropharynx normal. Uvula is midline with no erythema or edema. No tonsillar enlargement. No angioedema. Neck: Normal inspection. Neck supple. No cervical adenopathy. CVS: Normal heart rate and rhythm. Pulses normal. Respiratory: No respiratory distress. Breath sounds normal. Abdomen: Soft and nontender. +BSx4. Skin: Skin warm and dry. Normal skin color. Mildly raised red irregular patches throughout body surfaces including left chest/trunk, right abdomen, back, right leg/hip, left eye. Extremities: No lower extremity edema. Neuro: Oriented X 3. No motor deficit. Vital Signs: Vital Signs - 24 hr 08/15/25 09:03 Temperature 98 F Pulse Rate 111 H Respiratory Rate 18 Blood Pressure 118/71 Pulse Oximetry 98 Oxygen Delivery Method Room Air BMI result Body Mass Index 26.6 Medications Administered Discontinued Medications Generic Name Dose Route Start Last Admin Trade Name Freq PRN Reason Stop Dose Admin Diphenhydramine HCl 50 mg 08/15/25 09:13 08/15/25 09:36 Diphenhydramine Hcl 25 Mg Capsule PO 08/15/25 09:14 50 mg ONCE ONE Administration Famotidine 20 mg 08/15/25 09:15 08/15/25 09:37 Famotidine 20 Mg Tablet PO 08/15/25 09:16 20 mg ONCE ONE Administration Prednisone 60 mg 08/15/25 09:13 08/15/25 09:36 Prednisone 20 Mg Tablet PO 08/15/25 09:14 60 mg ONCE ONE Administration Medical Decision Making Medical Decision Making [facility] Narrative: Upon examination the patient has several areas of red, mildly raised, irregular patches diffusely throughout the body surface. Most apparent on the left chest/trunk area, right hip/pelvis, left upper eyelid/eyebrow, and back. He reports that it began on the left trunk/chest is reviewed evening but went to bed. He is unclear if there has been any new detergents used for sheets, clothing as he resides in a care home and does not do his own laundry. Reports that he had an orange soda yesterday which does not typically have. I considered TEN, SJS, but there was no preceding flu-like symptoms, general malaise associated with this. There is no crusting or skin breakdown. He is also mildly itchy, and exam is most consistent with a irritant contact dermatitis or allergic dermatitis. We will treat the patient with prednisone, Benadryl, and Pepcid in the ED and reassess for improvement. 1021-- rash with significant improvement. He reports feeling much better. He is on a new medication, Ingrezza, for his mild mouth twitch. He has been on this medication for 2 weeks. There is a side effect of rashes and hives, and therefore I did recommend the patient/care home staff speak with the provider who prescribed this medication for continued management and monitoring of it. It is possible this is causing the reaction, but the patient further reports he no longer sleep with sheets on his bed. There is likely also an irritant causing the rash. It has significantly improved after medication intervention. Plan to discharge home with oral steroids, antihistamines and close follow up with PCP outpatient. Patient and care home staff member are agreeable to plan of care. Differential Diagnosis Differential Diagnoses: The differential diagnosis associated with the presentation includes Irritant or contact/allergic dermatitis, TEN rash, SJS, viral rash, impetigo, HFM Admission/Observation Consideration of admission/observation: Escalation of care including admission/observation considered Independent Historian Clinical information obtained from an independent historian. History obtained from or confirmed by: Other (care home staff member) External Record Review External record reviewed: Outpatient record and Other (medication list, no SSRI noted) Chronic Conditions Patient?s care impacted by: Other (Schizoaffective d/o) Social Determinants Patient?s care significantly limited by Social Determinants of Health including: Problems related to primary support group Discharge Plan Discharge Clinical Impression: Rash, skin, Urticaria Patient Disposition: Home, Self-Care Instructions: Contact Dermatitis (DC), Urticaria (ED), Acute Rash (ED) Additional Instructions: As we discussed, the skin rash today was likely due to a contact irritation on the skin, such as sleeping without sheets on the bed, or possibly due to the new medication the patient has been taking for the past several weeks. I do recommend that you follow up closely with the provider that prescribed this medication for continued monitoring and discuss with them the reaction you had today. You had a significant, broad spectrum rash on all body parts. After receiving medications while in the ED that included Pepcid, prednisone, and Benadryl the rash has significantly improved. I am prescribing you a course of prednisone that you should take for the next 5 days in the morning. This may make you feel more hungry or irritable. Please take this medication with food. I have also recommended that you use [id number] Benadryl (a drowsy antihistamine) , or Claritin, Zyrtec (nondrowsy antihistamines) as needed for itching. You may use [id number] hydrocortisone cream as well. If the rash does not improve or worsens again, please seek re-evaluation in the emergency department. Follow up with your PCP within 1 week. Prescriptions: New prednisone 20 mg tablet 40 mg PO DAILY 5 Days Qty: 10 0RF No Action benztropine 1 mg tablet 1 tab PO BID nicotine (polacrilex) 2 mg Gum 4 mg buccal Q2H PRN (Reason: Nicotine Cravings) Qty: 0 0RF clonazepam 0.5 mg Tablet 0.5 mg PO BID PRN (Reason: Anxiety) Qty: 0 0RF topiramate 25 mg Tablet 25 mg PO BID Qty: 0 0RF trazodone 100 mg Tablet 100 mg PO BEDTIME PRN (Reason: Insomnia) Qty: 0 0RF bupropion HCl 300 mg Tablet Extended Release 24 Hr 300 mg PO DAILY Qty: 0 0RF Invega Sustenna 234 mg/1.5 mL Syringe 234 mg IM Q30D Qty: 0 0RF Referrals: Jamison Wallis MD [Primary Care Provider, Medical] Print Language: [place]ib[place]ian
--- NOTE | 2025-08-15 10:28 | PC.NURSE ---
pt has nonlabored resps with clear ls in all [place], he is not itchy and he denies any sensation of throat closing, he has no angio edema. awaiting md reeval.
[2025-08-15 10:50] VITALS: BP 120/68; PULSE 90; RESP 18; TEMP 36.6; O2SAT 98
--- OUTSIDE RECORDS SUMMARY | 2025-08-15 19:41 | XMS_ITS | Data Portability ---
Author Organization [place] - [facility] Address [address] [place] [id number] Assessment Encounter Date Assessment Date Assessment LastModified by Organization Details LastModified Time 07/28/2020 07/28/2020 Overview/History : 25yoM new to pmx psychiatric illness seen at [address] [place] [address] for a covid test after a covid exposure with a staff member. Staff unable to give me details about exposure. Patient denies any symptoms at this time Exam: VSS patient well appearing Heart and lung sounds clear DDx considered, but not limited to: COVID Work up/Results: Plan/Discussion: Patient is hemodynamically stable non toxic appearing seen for a COVID test today after a positive exposure in the facility. Staff was not able to tell me when this happened. The patient was without any symptoms. Educated the patient and staff that they should self isolate. Precautions given to again seek immediate medical care if the patient develops a fever, cough, cp or sob. They verbalized understanding and were agreeable with overall plan Proper Personal Protective Equipment (PPE), including gloves, eye protection, N95 mask, gown, were donned and doffed appropriately and all equipment cleaned using approved technique with germicidal disposable wipes prior to and after care of this patient according to [facility]'s infection prevention protocols. Time On Scene with Patient: 00:16:50 [email or web address] Not available 07/28/2020 20:08:06 Plan of Treatment Reminders Order Date Submit Date Provider Last Modified By Organization Details Last Modified Time Details Appointments None recorded. 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 Procedures None recorded. Surgeries None recorded. Imaging None recorded. Medication Orders None recorded. Patient TargetsNo targets recorded. Patient Instructions Encounter Date Encounter Id Patient Instructions Last Modified By Organization Details Last Modified Time 07/28/2020 [id number] TODAY YOU WERE TESTED FOR COVID ALL OF YOUR VITAL SIGNS WERE STABLE WE WILL CALL WITH RESULTS IN 48 HOURS IF YOU DEVELOP A FEVER, CHEST PAIN, SHORTNESS OF BREATHE OR A FEVER PLEASE SEEK MEDICAL CARE PLEASE CONTINUE TO ISOLATE, WASH HANDS OFTEN, AND WEAR A MASK WHEN POSSIBLE Thank you for your visit with [facility] today. We cannot always find the exact cause of your symptoms during your initial visit. Please follow up with your primary care provider or specialist as needed to be rechecked or seek medical attention if your symptoms do not go away or get worse. If you develop any new or worsening symptoms and need after hours care, please go to nearest ER and/or call 911. If you have additional concerns or develop a change in your condition between 8am-10pm, please call [facility] at [phone] to help navigate your care. [email or web address] Not available 07/28/2020 14:22:31 Reason for Referral None Reported. 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 Nucle ic acid ampli ficat ion tests inclu de PCR and TMA. This test has not been FDA clear ed or appro yumi. This test has been autho rized by FDA under an Emerg ency Use Autho rizat ion (EUA) . This test is only autho rized for the durat ion of time the decla ratio n that circu mstan luis exist justi fying the autho rizat ion of the emerg ency use of in vitro diagn ostic tests for detec tion of SARS- CoV-2 virus and/o r diagn osis of COVID -19 infec tion under secti on 564(b )(1) of the Act, 21 U.S.C . 360bb b-3(b ) (1), unles s the autho gustavo cook is termi nated or revok ed soone r. When diagn ostic testi ng is negat charles, the possi bilit y of a false negat charles resul t shoul d be consi dered in the lorelei xt of a patie nt's recen t expos ures and the prese nce of clini mohsen signs and sympt oms consi stent with COVID -19. An indiv idual witho ut sympt oms of COVID - 19 and who is not ramon ing SARS- CoV-2 virus would expec t to have a negat charles (not detec alejandro) resul t in this assay . TEST PERFO RMED BY [facility], ANAIS AN, HERNANDO MONTEJO Y Not Available [facility] (Centralized Electronic Ordering - All Locations) Patient Can Go To The Location Of Their Choice, [id number] 08/01/2020 08:28:28 Result Notes None recorded. Medical Equipment None Reported. Allergies Allergen ID Allergen Name Allergen Category Reaction Reaction Severity Criticality Documentation Date Start Date Code Code System Note Provider Name and Address Organization Details Recorded Time [id number] cefaclor medicatio n Not available Not available Not available 07/28/2020 2176 RxNorm STEVEN NICK Formerly [facility] [address], [address], [place] - [facility] 0 19:19:46 Medications Name Sig Start Date Stop Date Status Note LastModified by Organization Details LastModified Time clonidine HCl 0.1 mg tablet TAKE 1 TABLET BY MOUTH THREE TIMES A DAY NEEDED active Not Available Not Available No t Available haloperidol 5 mg tablet active Not Available Not Available No t Available hydroxyzine HCl 50 mg tablet TAKE 1 TABLET BY MOUTH THREE TIMES A DAY NEEDED FOR ANXIETY active Not Available Not Available No t Available acetaminophen 500 mg tablet TAKE 1 TABLET BY ORAL ROUTE EVERY 4 6 HOURS NEEDED MAX 8 TABLETS PER 24HRS FOR HEADACHE active Not Available Not Available No t Available haloperidol 20 mg tablet active Not Available Not Available No t Available haloperidol 10 mg tablet active Not Available Not Available No t Available benztropine 1 mg tablet TAKE 1 TABLET DAILY AT BEDTIME AND MAY TAKE 1 TABLET A DAY NEEDED FOR EPS active Not Available Not Available No t Available hydroxyzine HCl 25 mg tablet TAKE 2 TABLETS BY MOUTH TWICE DAILY NEEDED FOR ANXIETY OR SLEEP active Not Available Not Available No t Available escitalopram 10 mg tablet TAKE 1 TABLET BY MOUTH ONCE A DAY active Not Available Not Available No t Available aripiprazole 10 mg tablet active Not Available Not Available Not Available aripiprazole 20 mg tablet active Not Available Not Available Not Available Thera-M 9 mg iron-400 mcg tablet TAKE 1 TABLET BY MOUTH EVERY DAY active Not Available Not Available No t Available Vitals Date Recorded Respiratory rate Heart rate Body temperature Oxygen saturation Oxygen saturation in Arterial blood by Pulse oximetry Systolic And Diastolic Provider Name and Address Organization Details Last Updated DateTime 0 18 /min 78 /min 98.7 [degF] 98 % 98 % 114/74 mm[Hg] Not Available [facility] 0 14:05:37 Social History None recorded. Functional Status None recorded. Mental Status None recorded. Family History Nothing Reported. Medical History No medical history recorded. Past Encounters Encounter ID Performer Location Encounter Start Date Encounter Closed Date Diagnosis/Indication Diagnosis SNOMED-CT Code Diagnosis ICD10 Code Diagnosis IMO Codes Diagnosis Note [id number] STEVEN NICK [address] [place] [address] 07/28/2020 13:17:26 07/30/2020 13:08:23 Exposure to communicable disease 019077600 Z20.828 Health Concerns Section Related Observation LastModified by Organization Detai ls LastModified Time None Recorded Concern Status LastModified by Organization Details LastModified Time None Recorded Advance Directives Directive None Recorded Payers Insurance Date Sequence Insurance Name Policy Number Policy Garg Covered Member ID Garg Member ID Guarantor Name 07/27/2020 1 *SELF PAY* Codey Waite [id number] Codey Waite 07/30/2020 1 [place] [facility] Codey Waite [id number] Codey Waite Notes Date Note Type Note Provider Name and Address Organization Details Recorded Time 07/28/2020 text/html 25yoM new to seen at the [address] [place] [address] Facility. The patient did not want to tell us about his pmhx and we were given very little information by the staff. He is seen today for a cOVID test as he was exposed at the facility. He denies fever, cough, cp, sob or loss of sense of taste or smell. The staff was also unable to provide details as to when the exposure had happened. STEVEN NICK [address], [place], [address], [place] [facility] 07/28/2020 20:08:13
== END 2025-08-15 10:52 | disposition home or self-care (01) ==
PROVIDERS: Emergency Provider Emergency Medicine; PCP Internal Medicine
DX: R21 Rash and other nonspecific skin eruption (principal); L50.9 Urticaria, unspecified; Z88.0 Allergy status to penicillin; Z88.8 Allergy status to other drugs, medicaments and biological substances
CPT/HCPCS: 99283

== ENCOUNTER 2025-08-16 08:13 | Emergency (ER) | payer OTHER, SELFPAY ==
[2025-08-16 08:20] VITALS: BP 138/66; PULSE 95; RESP 20; TEMP 36.1; O2SAT 99; BMI 26.6
--- NOTE | 2025-08-16 08:35 | ED_ITS ---
HPI - Allergic Reaction General Chief complaint: Allergic Reaction Stated complaint: Facial swelling, allergic reaction? Time Seen by Provider: 08/16/25 08:22 Source: patient Mode of arrival: ambulatory Limitations: no limitations History of Present Illness ED Provider: MARIANN MARQUES PA-C HPI narrative: 30 year old male with pmhx significant for schizoaffective disorder presents to the ED today for evaluation of rash x24 hours. Reports red itchy rash that began on his torso yesterday, has now spread to all 4 extremities and face. Denies difficulty breathing, swallowing. Patient states he was evaluated at our facility yesterday for rash. He was diagnosed with contact dermatitis and discharged home on 5 day course of Prednisone. Reports rash has not been improving. He reports recently starting Ingrezza on 08/02/25 for his TD. He takes 40 mg daily. He also reports recently starting monthly Haldol injections. His first injection was 2-3 weeks ago. Prior to this, he states he had been on oral haldol for years without any adverse reactions. His only other known allergies are to cefaclor and penicillin - denies taking either of these. He denies new soaps/lotions/detergents. Denies known tick or insect bites. Related Data Home Medications ?Medication ?Instructions ?Recorded ?Confirmed benztropine 1 mg tablet 1 tab PO BID 06/04/22 Previous Rx's ?Medication ?Instructions ?Recorded bupropion HCl 300 mg 24 hr tablet, 300 mg PO DAILY #0 tabs 08/12/22 extended release clonazepam 0.5 mg tablet 0.5 mg PO BID PRN Anxiety #0 tabs 08/12/22 nicotine (polacrilex) 2 mg gum 4 mg buccal Q2H PRN Ayden otine 08/12/22 Cravings #0 ea paliperidone palmitate 234 mg/1.5 234 mg (1.5 mL) IM Q 30D #0 mL 08/12/22 mL intramuscular syringe (Invega Sustenna) topiramate 25 mg tablet 25 mg PO BID #0 tabs 2 trazodone 100 mg tablet 100 mg PO BEDTIME PRN Insomn ia #0 08/12/22 tabs prednisone 20 mg tablet 40 mg (2 x 20 mg) PO DAILY 5 days 08/15/25 #10 tabs diphenhydramine HCl 25 mg tablet 25 mg PO Q6-8H PRN it george #20 tabs 08/16/25 (Benadryl Allergy) famotidine 20 mg tablet (Pepcid) 20 mg PO BID 5 days # 10 tabs 08/16/25 Allergies Allergy/AdvReac Type Severity Reaction Status Date / Time cefaclor (From CECLOR) Allergy Unknown RASH Verified 08/16/25 08:21 Penicillins Allergy Unknown Verified 08/16/25 08:21 valbenazine (From Ingrezza) Allergy Rash Verified 08/16/25 16:32 Review of Systems 2 Review of Systems: Yes all other systems are reviewed and are negative PMFSH Past Medical History Attestation statement: The following information was validated with the patient. Source: old records reviewed and nursing notes reviewed Medical History Schizoaffective disorder, bipolar type Non compliance w medication regimen Schizophrenia Social History Social History Household Members: Other Household Members Other:: alf Housing: Other Housing Other:: alf Do you presently have visiting nurse or other home services: Yes (PT [facility] IN A [facility] - [facility]) Alcohol intake: former Patient Tobacco Use Status: Former Tobacco user Tobacco use type: Smokeless Tobacco e-Cigarette/Vaping Use: Currently Using Second Hand Smoke Exposure: Yes Substance Use Type: Marijuana Advance Directives: No Advance Directives Information Provided: Yes service: No Current occupation: [employer] Sexual orientation: Straight/Heterosexual Physical Exam ED Vital Signs: Vital Signs - 24 hr 08/16/25 08:20 08/16/25 10:13 08/16/25 11:02 Temperature 97.0 F 98.8 F 98.8 F Pulse Rate 95 80 80 Respiratory Rate 20 18 18 Blood Pressure 138/66 119/66 119/66 Pulse Oximetry 99 99 99 Oxygen Delivery Method Room Air Room Air Room Air BMI result Body Mass Index 26.6 vital signs stable General: Well appearing, in no acute distress. Skin: +see photos below. raised erythematous morbilliform rash to torso, extremities, neck and face. no sloughing. spares mucous membranes, palms, soles, webbed spaces. no target lesions. nondermatomal. Head: Normocephalic, atraumatic. EENT: Hearing is intact b/l. Conjunctiva clear. Sclera is anicteric. PERRLA. EOM intact. Moist mucous membranes.? Neck: Supple without LAD Cardiac: Chest wall symmetric. RRR Lungs: Normal respiratory effort without accessory muscle use. CTA bilaterally Abdomen: Soft, non-tender, non-distended. No rebound tenderness or guarding. Positive BS x4. Back: No midline spinous or paraspinal tenderness. No step off deformity. Ext: +see above Neuro: AOx3. Normal speech. Ambulating with steady gait. Psych: Appropriate mood and affect. Responds appropriately to questions. Course Course Course Narrative: I have suspicion patient is having a drug eruption secondary to Ingrezza. there is no mucous membrane involvement, negative nikolsky sign - I do not suspect SJS/TEN. Discussed case with my attending dr. anderson - agrees with symptomatic management with pepcid + benadryl. advised to discontinue use of ingrezza d/t suspected allergy - this has been added to allergy list by RN. I have also discussed management with outpatient devora Rodriguez - informed that patient will be discontinuing ingrezza. advised to f/u outpatient for alternative TD treatments. lisa was discharged w/ prednisone yesterday. given hx of psychosis, advised to discontinue this medication. Patient endorses improvement in itching after receiving Benadryl and Pepcid. He is in no respiratory distress. His airways patent. I am not concerned about airway compromise. Patient has remained stable throughout ED visit today. Discussed worrisome signs and symptoms and when to return to the ED. All questions answered at this time. Patient is agreeable with disposition and stable for discharge. Medications Administered Discontinued Medications Generic Name Dose Route Start Last Admin Trade Name Freq PRN Reason Stop Dose Admin Diphenhydramine HCl 25 mg 08/16/25 08:33 08/16/25 08:51 Diphenhydramine Hcl 50 Mg/Ml Vial IVPUSH 08/16/25 08:34 25 mg ONCE ONE Administration Famotidine 20 mg 08/16/25 08:33 08/16/25 08:51 Famotidine/Pf 20 Mg/2 Ml Vial IVPUSH 08/16/25 08:34 20 mg ONCE ONE Administration Medical Decision Making Medical Decision Making MDM Narrative: raised erythematous morbilliform rash to torso, extremities, neck and face. no sloughing. spares mucous membranes, palms, soles, webbed spaces. no target lesions. nondermatomal. Differential diagnosis includes dana eruption. less likely contact/atopic/eczematous dermatitis, psoriasis. History and exam findings not consistent with lyme/tick bourne illness, herpes zoster/simplex, scabies, HFM, dangerous etiologies of rash such as SJS/TEN, or secondary dangerous causes such as petechial rashes from thrombocytopenia or rickettsial infections, anaphylaxis. Plan at this time is to treat symptomatically, instruct to follow up with PCP/psych. Differential Diagnosis Differential Diagnoses: The differential diagnosis associated with the presentation includes as above. Admission/Observation not indicated. External Record Review External record reviewed: Inpatient record Prescription Management I considered prescription management with: Other (pepcid, benadryl) Chronic Conditions Patient?s care impacted by: Other (Schizoaffective) Social Determinants Patient?s care significantly limited by Social Determinants of Health including: Other Social Determinant of Health Critical Care Time Critical Care Time Critical Care Time: No Discharge Plan Discharge Clinical Impression: Drug eruption Patient Disposition: Home, Self-Care Instructions: Acute Rash (ED) Additional Instructions: You were evaluated in the ED today for rash. I suspect this rash is a result of your new medication, Ingrezza. STOP TAKING THIS MEDICATION IMMEDIATELY. The next time you take this, your rash can worsen and your airway can close. I called and spoke with your psychiatric provider, please make a follow up appointment with them regarding a new medication to start you on. The treatment for this rash is to stop the medication, Ingrezza. For your symptoms, I am sending Benadryl and Pepcid to your pharmacy. Take these as needed for itching. I also recommend you stop taking the prednisone that was prescribed to you yesterday. This can worsen psychotic symptoms. Please follow-up with your primary care provider regarding your visit today. Return to the Emergency Department if you experience worsening or spreading rash, worsening or uncontrolled pain, fevers 100.4?F or greater, recurrent vomiting, shortness of breath, discharge from your rash, or any other concerning symptoms. In the case of an emergency call 911. Prescriptions: New diphenhydramine HCl [Benadryl Allergy] 25 mg tablet 25 mg PO Q6-8H PRN (Reason: itching) Qty: 20 0RF famotidine [Pepcid] 20 mg tablet 20 mg PO BID 5 Days Qty: 10 0RF No Action benztropine 1 mg tablet 1 tab PO BID nicotine (polacrilex) 2 mg Gum 4 mg buccal Q2H PRN (Reason: Nicotine Cravings) Qty: 0 0RF clonazepam 0.5 mg Tablet 0.5 mg PO BID PRN (Reason: Anxiety) Qty: 0 0RF topiramate 25 mg Tablet 25 mg PO BID Qty: 0 0RF trazodone 100 mg Tablet 100 mg PO BEDTIME PRN (Reason: Insomnia) Qty: 0 0RF bupropion HCl 300 mg Tablet Extended Release 24 Hr 300 mg PO DAILY Qty: 0 0RF Invega Sustenna 234 mg/1.5 mL Syringe 234 mg IM Q30D Qty: 0 0RF prednisone 20 mg tablet 40 mg PO DAILY 5 Days Qty: 10 0RF Referrals: Jamison Wallis MD [Primary Care Provider, Medical] Interventions: ED Discharge Assessment Last Done: 08/16/25 11:02 Discharge Date/Time: 08/16/25 11:03 Print Language: Chinese
[2025-08-16 10:13] VITALS: BP 119/66; PULSE 80; RESP 18; TEMP 37.1; O2SAT 99
[2025-08-16 11:02] VITALS: BP 119/66; PULSE 80; RESP 18; TEMP 37.1; O2SAT 99
--- OUTSIDE RECORDS SUMMARY | 2025-08-16 16:08 | XMS_ITS | Encounter Summary ---
Author Organization [facility] Address [address] [place] [phone] Phone Care Team Providers Care Leather Polisher Name Role Phone Urbano Hyman Primary Care Provider Encounter Details Date Type Department Care Team (Late st Contact Info) Description 08/27/2015 Documentation [facility] Social History Tobacco Use Types Packs/Day Years Used Date Smoking Tobacco: Never Assessed Sex and Gender Information Value Date Recorded Sex Assigned at Not on file Legal Sex Male 4:27 PM EDT Gender Identity Not on file Sexual Orientation Not on file documented as of this encounter Plan of Treatment Not on file documented as of this encounter Visit Diagnoses Not on filedocumented in this encounter Care Teams Leather Polisher Relationship Specialty Start Date End Date Urbano Hyman [address] [place] [address] PCP - General 05/08/17 documented as of this encounter
--- OUTSIDE RECORDS SUMMARY | 2025-08-16 16:08 | XMS_ITS | Clinical Summary ---
Author Organization [facility] Address [address] [place] [address] Phone Care Team Providers Care Computer System Validation Specialist Name Role Phone Urbano Hyman Primary Care Provider [phone] Immunizations Immunization Administration Dates Next Due DTP 01/17/1999, 5,1993,09/27 DTaP 5 07/28/1998 Hep B, ped/adol 05/20/1994,1993,1993 Hib (PRP-T) 12/30/1994, 4,1993,09/27 IPV 07/28/1998, 4,1993,09/27 MMR 07/28/1998,12/30/1994 Meningococcal Conj (Menactra) MCV4P 04/07/2006 Td (adult) (MBL), 2 Lf tetan us toxoid, PF, adsorbed 10/31/2003 Tdap 01/17/2009 Varicella 01/17/2009 Family History Relation Name Status Comments Father Alive Father: Bipolar disorder Half-Brother Alive Half brother (M ): Asthma Half-Sister Alive Half sister (M) : Alive and well, Alive and well, Asthma/ seizures Mother Alive Mother: Asthma Social History Tobacco Use Types Packs/Day Years Used Date Smoking Tobacco: Never Assessed Sex and Gender Information Value Date Recorded Sex Assigned at Not on file Legal Sex Male 4:27 PM EDT Gender Identity Not on file Sexual Orientation Not on file Plan of Treatment Health Maintenance Due Date Last Done Comments Varicella Vaccines (2 of 2 - 13+ 2-dose series) 02/14/2009 01/17/2009 DTaP,Tdap,and Td Vaccines (6 - Td or Tdap) 01/17/2019 01/17/2009, 10/31/2003, 01/17/1999, Additional history exists HPV Vaccines (1 - 3-dose SCDM series) 2020 Influenza Vaccines (#1) 2025 COVID-19 Vaccine (2024- season) 2025 Hepatitis B Vaccines Completed 05/20/1994, 1993, 1993 HIB Vaccines Completed 12/30/1994, 12/28, 1993, Additional history exists IPV Vaccines Completed 07/28/1998, 12/28, 1993, Additional history exists MMR Vaccines Completed 07/28/1998, 12/30/1994 Meningococcal Vaccine Aged Out 04/07/2006 No dorinda yessenia eligible based on patient's age to complete this topic Hepatitis A Vaccines Aged Out No long er eligible based on patient's age to complete this topic Men B Vaccine Aged Out No longer elig ible based on patient's age to complete this topic Pneumococcal Vaccine Aged Out No long er eligible based on patient's age to complete this topic Care Teams Computer System Validation Specialist Relationship Specialty Start Date End Date Urbano Hyman [address] [place] [id number] PCP - General 05/08/17
--- OUTSIDE RECORDS SUMMARY | 2025-08-16 16:08 | XMS_ITS | Encounter Summary ---
Author Organization [facility] Address [address] [place] [address] Phone Care Team Providers Care Pipelines Laborer Name Role Phone Urbano Hyman Primary Care Provider [phone] Encounter Details Date Type Department Care Team (Late st Contact Info) Description 08/27/[address] [facility] Social History Tobacco Use Types Packs/Day Years Used Date Smoking Tobacco: Never Assessed Sex and Gender Information Value Date Recorded Sex Assigned at Not on file Legal Sex Male 4:27 PM EDT Gender Identity Not on file Sexual Orientation Not on file documented as of this encounter H&P Notes * DOCUMENTS, [facility] - 08/27/2015 10:01 AM EST HPP [address] [address] A Member of the [facility] [place] Name: STEPHANIE WAITE Admit Date: 08/27/15 - 1995 - 24yrs Discharge Date: 08/31/15 Location: [id number] - P509-1 Report #: [id number] DATE OF ADMISSION: 08/27/2015 The [place] warning was given to the patient who appeared to understand the warning. CHIEF COMPLAINT: I was not feeling too good. SOURCE OF INFORMATION: The following information was obtained from the patient, crisis evaluation, and previous records. HISTORY OF PRESENT ILLNESS: This is a 20-year-old Kuwaiti-speaking male who presented to the [facility] Emergency Room due to suicidal ideation and a change in behavior according to his mother. The patient reports that he felt different. He was unable to specify why he felt different. He stated that, Last time I came to [place] it helped me, so I wanted to come back. When asked how it helped, he stated, It felt a new start. He denies having any changes in his life. When asked about sleep, he stated that it is good , and he sleeps from approximately 10:00 p.m. until 8 a.m. in the morning. When asked about appetite, he stated, I eat when I'm hungry. He denied any weight changes. According to the crisis evaluation, his mother reported an increase in bizarre behavior and paranoid thoughts. When the patient was asked about this he stated, I feel unsafe. He reports feeling that people are out to harm him, but was unable to identify anybody in particular or any reason that people would want to harm him. He states that he has been feeling this way for the past year. He also reported feeling suicidal yesterday because I felt like shit. He also stated, I did not feel good enough to stay where I was at. He was unable to provide details regarding this statement. He did not inform this signwriter of a suicide plan when asked. The crisis evaluation does not indicate what the bizarre behavior that mom is reporting was. When asked about substance use, the patient reported that he quit smoking marijuana last week. He reports quitting because he was seeing stuff , but then stated sometimes I see shit when I'm not smoking. He reports having visual hallucinations for the past year, but was unwilling to tell this signwriter what kinds of visual hallucinations he was experiencing. DATA: Potassium 3.4 alcohol 11. Urine toxicology unable to be obtained in the emergency room due to patient refusing. PAST PSYCHIATRIC HISTORY: The patient denies any psychiatric history or providers. He had been admitted to [facility] in November of 2014 and [facility] for a matter of hours before eloping at some point. He denied any history of suicide attempts, self-injurious behavior, aggression, cruelty to animals, fire-setting, or gang involvement. SUBSTANCE HISTORY: The patient reports a history of marijuana use and stated that he used last week. He reports that he quit smoking because, I was seeing stuff. He reports occasional alcohol use, and last consumed five shots of Chiara on 08/23/2015. His BAL was 11. He denied any history of detox admissions. FAMILY HISTORY: The patient denied any family history of mental illness or substance abuse. According to previous records, there is a maternal and paternal family history of bipolar disorder and psychosis. SOCIAL HISTORY: The patient currently lives in [place] with his mom and 4 siblings. He is one of seven children. He completed his GED and according to previous records attended some college. He is currently unemployed. He reports that he had been working at [employer], but stopped a while ago. According to the crisis evaluation, he stopped working a few weeks ago and previous hospital records indicate that he quit his job at [employer] in November of 2014. He denied any current legal issues. He denied a history of trauma. CURRENT MEDICATIONS: None. ALLERGIES: CECLOR. MEDICAL HISTORY: None. PRIMARY CARE PHYSICIAN: None. CURRENT VITALS: Temperature 97.6, blood pressure 116/59, heart rate 72, respiration rate 16. REVIEW OF SYSTEMS: A complete and comprehensive review of systems was conducted and found to be within normal limits. MENTAL STATUS EXAMINATION: This is a 20-year-old Kuwaiti-speaking male who appears his stated age and is dressed in hospital attire. Grooming is unremarkable. The patient's eye contact was poor as he appeared sedated to this signwriter. Speech was within normal limits for rate and tone. He described his mood as anxious to go to sleep. His affect appeared guarded as he was unwilling to discuss details of his presentation or concerns to this signwriter. He was also sedated. Thoughts were linear and organized, but there appeared to be some level of anxiety or paranoia to this signwriter. He asked if the medication he was given in the emergency room was going to continually make him feel this way, meaning sedated. He denied suicidal and homicidal ideation. He denied auditory and visual hallucinations. He did not appear to be responding to internal stimuli. He was alert and oriented to all spheres, although cognition not formally assessed, appeared of average intelligence. Judgment and insight appear fair. During his previous admission in November 2014, he refused to take all medications. During this interview, he specifically requested to be started on some medication. FORMULATION: This is a 20-year-old Kuwaiti-speaking male who presented to the [facility] Emergency Room secondary to suicidal ideation and a change in behavior according to what mom reported to crisis. He reported that he was feeling suicidal yesterday, and when asked about details, all he provided was that he did not feel good enough to stay where I was. He provided minimal information regarding precipitant, but did state that he smoked marijuana last week and was seeing stuff. He reports experiencing visual hallucinations for the past year and that sometimes I see shit even when I'm not smoking. He did not want to discuss what previous visual hallucinations he experienced, and currently denies auditory and visual hallucinations. He appeared sedated during this interview and asked this signwriter if he could go lie down. He had previously been admitted in 11/2014 and did not want to take medications. During this interview, he specifically asked to be started on Seroquel. He denied suicidal and homicidal ideation and contracted for safety in the unit. He will be admitted to [address] [place] [address] for safety, stabilization, and medication evaluation. DIAGNOSES: AXIS I: Unspecified psychotic disorder, rule out paranoid schizophrenia, cannabis abuse per patient report. AXIS II: Deferred. AXIS III: None. Lagrange IV: Lack of day structure, lack of providers, lack of coping skills. AXIS V: Current functioning 33, past year global assessment of functioning 50 at time of discharge on 12/21/2014. INITIAL PLAN: 1. Admit to [address] [place] [address], 15-minute checks, conditional voluntary accepted. 2. Individual/group, add milieu therapy as tolerated. 3. Medication management per attending. 4. Seroquel 50 mg q.6 hours p.r.n. anxiety, agitation, psychosis. 5. Seroquel 100 mg p.o. at bedtime. STEVEN Brownlee Doc #:[id number] cc: Dictating Provider: MARIZOL ARAUJO MOCEM/ ETS <Electronically signed by STEVEN BROWNLEE> [id number] S: 08/28/15 1415 documented in this encounter Plan of Treatment Not on file documented as of this encounter Visit Diagnoses Not on filedocumented in this encounter Care Teams Pipelines Laborer Relationship Specialty Start Date End Date Urbano Hyman [address] [place] [address] PCP - General 05/08/17 documented as of this encounter
--- OUTSIDE RECORDS SUMMARY | 2025-08-16 16:08 | XMS_ITS | Clinical Summary ---
Author Organization [employer] Address [address] [facility] 7[address] [place] [address] Care Team Providers Care Beet Topper Name Role Phone Jamison Wallis MD Primary Care Prov ider Allergies Active Allergy Reactions Criticality Noted Date Comments Cefaclor Hives 06/28/2014 Other reaction(s): Unknown Penicillins Hives 09/12/2020 Medications carbamide peroxide (Debrox) 6.5 % otic solutionIndicati ons:Impacted cerumen, right ear Apply drops to Right ear 3-4 times a day for 4 days 15 mL 01/04/2024 Active Active Problems Problem Noted Date Diagnosed Date Weight loss counseling, encounter for 08/11/2024 Assessment & Plan (08/11/2024 9:59 AM EST): Patient has been intentionally limiting his food calorie intake and types of food he has been eating. Wants to be seen by a alcohol still operator to discuss healthy diet, will place referral Bilateral hearing loss due to cerumen impaction 04/07/2024 Assessment & Plan (04/07/2024 10:34 AM EDT): Debrox prescribe and appointment for ear lavage done Enlarged thyroid gland 04/07/2024 Assessment & Plan (04/07/2024 10:34 AM EDT): On physical exam I could not appreciate lymph nodes, I did notice enlarge thyroid and possibly tyroid nodules I will order thyroid US and TSH Acne comedone 05/29/2023 Assessment & Plan (05/29/2023 10:07 AM EDT): Limited to isolated blackhead lesions. Reassurance, he was concerned re skin cancer. I told him that these lesions are extremely unlikely to turn in to malignancies. I told him to leave them alone or use mentholated creams (tooth paste?) to decrease inflammations And RTC prn if he notices erythema or increase number of lesions. There is no evidence of bacterial infection. ADELINE chavez PCP prn Encounters Date Type Department Care Team Description 08/15/2025 Telephone [facility] MEDICINE [address] [place] [address] Jamison Wallis MD Nurse Triage from Last 3 Months Social History Tobacco Use Types Packs/Day Years Used Date Smoking Tobacco: Never Passive Smoke Exposure: Never Smokeless Tobacco: Never Tobacco Cessation:Counseling Given: Not Answered Comments:Tried 10 cigarettes in his life Depression Answer Date Recorded Patient Health Questionnaire-9 Score 0 01/04/2024 Patient Health Questionnaire-9 Score 0 01/04/2024 Last PHQ-9: Questionnaire Data Not on file 0 01/04/2024 Housing Stability Answer Date Recorded What is your housing situation today? I have lurdes anoop 03/28/[address] you li ve. Do you have problems with any of the following? None of the above 03/28/2025 Food Insecurity Answer Date Recorded Within the past 12 months, y ou worried that your food would run out before you got money to buy more: Never True 03/28/2025 Within the past 12 months,th e food you bought just didn't last and you didn't have enough money to get more: Never True 09/2024 Transportation Answer Date Recorded In the past 12 months, has l ack of transportation kept you from medical appts, meetings, work or from getting things needed for daily living? No 03/28/2025 Utilities Answer Date Recorded In the past 12 months, has t he electric, gas, oil or water company threatened to shut off services in your home? No 03/28/2025 Depression Answer Date Recorded Patient Health Questionnaire-2 Score 0 01/04/2024 Internet Access Answer Date Recorded Internet Access Q1 Yes 03/28/2025 Internet Access Q2 Not on file 03/28/2025 Sex and Gender Information Value Date Recorded Sex Assigned at Male 07/28/2022 10:14 AM EDT Legal Sex Male 10:14 AM EDT Gender Identity Male 07/28/2022 10:14 AM EDT Sexual Orientation Choose not to disclose 2021 10:14 AM EDT Last Filed Vital Signs Vital Sign Reading Time Taken Comments Blood Pressure 102/68 08/11/2024 8:54 AM EST Pulse 72 08/11/2024 8:54 AM EST Temperature 36.6 C (97.8 F) 08/11/2024 8:54 AM EST Respiratory Rate 20 08/11/2024 8:54 AM EST Oxygen Saturation 100% 04/07/2024 9:45 AM EDT Inhaled Oxygen Concentration - - Weight 63.5 kg (140 lb) 08/11/2024 8:54 AM EST Height 170.2 cm (5' 7 ) 08/11/2024 8:54 AM EST Body Mass Index 21.93 08/11/2024 8:54 AM EST Plan of Treatment Health Maintenance Due Date Last Done Comments Disability Screening 1993 Alcohol/Substance Use Screening 2005 Family Planning (PISQ) 2008 HPV Vaccines (1 - Male 3-dose series) 2008 DTaP/Tdap/Td Vaccines (6 - Td or Tdap) 01/17/2019 01/17/2009, 10/31/2003, 01/17/1999, Additional history exists Depression Screening 01/03/2025 01/04/2024, 01/04/20 COVID-19 Vaccine ( season) 2025 11/21/2020, 10/24/2020 Influenza Vaccine (#1) 2025 SDOH Screening 03/28/2026 03/28/2025 Tobacco Screening 03/28/2026 03/28/2025 Zoster Vaccines (1 of 2) 2043 RSV Patients and Patients Aged 60 years or older (1 - 1-dose 75+ series) 2068 Hepatitis B Vaccines Completed 05/20/1994, 1993, 1993 HIB Vaccines Completed 12/30/1994, 12/28, 1993, Additional history exists IPV Vaccines Completed 07/28/1998, 12/28, 1993, Additional history exists Meningococcal Vaccine Aged Out 04/07/2006 No dorinda yessenia eligible based on patient's age to complete this topic HIV Screening Completed 12/05/2021 Hepatitis C Screening Completed 12/05/2021 Hepatitis A Vaccines Aged Out No long er eligible based on patient's age to complete this topic Meningococcal B Vaccine Aged Out No l onger eligible based on patient's age to complete this topic Pneumococcal Vaccine: Pediatrics (0 to 5 Years) and At-Risk Patients (6 to 49) Years Aged Out No longer eligible based on patient's age to complete this topic RSV under 20 months Aged Out No longe r eligible based on patient's age to complete this topic Rotavirus Vaccines Aged Out No longer eligible based on patient's age to complete this topic Procedures Procedure Name Priority Date/Time Associated Diagnosis Comments ZZZ HISTORICAL HEPATITIS C AB W/REFL TO HCV RNA, QN, PCR Routine 12/05/2021 11:45 AM EST HIV 1/2 ANTIGEN/ANTIBODY, FOURTH GENERATION W/RFL Routine 12/05/2021 11:45 AM EST from Last 3 Months or Most Recently Relevant to Health Maintenance Results * HEPATITIS C AB W/REFL TO HCV RNA, QN, PCR (12/05/2021 11:45 AM EST) HEPATITIS C ANTIBODY NON-REACT ABHISHEK NON-REACT ABHISHEK [facility] INDEX 0.01 <1.00 [facility] Comment: HCV antibody was non-reactive. There is no laboratory evidence of HCV infection. In most cases, no further action is required. However, if recent HCV exposure is suspected, a test for HCV RNA (test code 01761) is suggested. For additional information please refer to http://education.[employer] Genetics/faq/QHU60z1 (This link is being provided for informational/ educational purposes only.) 12/05/2021 11:4 5 AM EST us Aida Lemos MD HISTORICAL/NON ORDERA BLE LABS Final Result [facility] [address] * HIV 1/2 ANTIGEN/ANTIBODY,FOURTH GENERATION W/RFL (12/05/2021 11:45 AM EST) HIV-1/2 ANTIGEN AND ANTIBODIES, 4TH GENERATION W/ REFLEX NON-REACT ABHISHEK NON-REACT ABHISHEK [facility] Comment: HIV-1 antigen and HIV-1/HIV-2 antibodies were not detected. There is no laboratory evidence of HIV infection. PLEASE NOTE: This information has been disclosed to you from records whose confidentiality may be protected by state law. If your state requires such protection, then the state law prohibits you from making any further disclosure of the information without the specific written consent of the person to whom it pertains, or as otherwise permitted by law. A general authorization for the release of medical or other information is NOT sufficient for this purpose. For additional information please refer to http://education.[employer]/faq/CBB658 (This link is being provided for informational/ educational purposes only.) The performance of this assay has not been clinically validated in patients less than 2 years old. 12/05/2021 11:4 5 AM EST Aida Lemos MD LAB BLOOD ORDERABLES Final Result Performing Organization Address [facility] de Phone Number [facility] [address] from Last 3 Months or Most Recently Relevant to Health Maintenance Insurance [facility] ONE CARE < [address] STEVEN STOREY [id number] Care Teams Beet Topper Relationship Specialty Start Date End Date Jamison Wallis MD [address] [place] [id number] PCP - General Internal Medicine 01/18/24
--- OUTSIDE RECORDS SUMMARY | 2025-08-16 16:08 | XMS_ITS | Encounter Summary ---
Author Organization [employer] Address [address] [facility] [address] [place] [address] Care Team Providers Care Teaching Specialists Name Role Phone Jamison Wallis MD Primary Care Prov ider Reason for Visit * Reason Onset Date Comments Nurse Triage 08/15/2025 Encounter Details Date Type Department Care Team ([facility] st Contact Info) Description 08/15/2025 Telephone [facility] MEDICINE [address] [place] [address] Jamison Wallis MD [address] [place] [address] Nurse Triage Social History Tobacco Use Types Packs/Day Years Used Date Smoking Tobacco: Never Passive Smoke Exposure: Never Smokeless Tobacco: Never Comments:Tried 10 cigarettes in his life Depression Answer Date Recorded Patient Health Questionnaire-9 Score 0 01/04/2024 Patient Health Questionnaire-9 Score 0 01/04/2024 Last PHQ-9: Questionnaire Data Not on file 0 01/04/2024 Housing Stability Answer Date Recorded What is your housing situation today? I have lurdes davalos 03/28/[address] you li [...] not to disclose 2021 10:14 AM EDT documented as of this encounter Miscellaneous Notes * Telephone Encounter - Lary Herrera RN - 08/15/2025 10:07 AM EST Symptom: Rash or Redness - Widespread Outcome: Schedule a same-day appointment or talk to a nurse or provider today Reason: Caller denied all higher acuity questions The caller accepted this outcome. PCP DR. Vazquez TC placed to pt left a message for a call back * Telephone Encounter - Aliza Flores - 08/15/2025 8:40 AM EST Symptom: Rash or Redness - Widespread Outcome: Schedule a same-day appointment or talk to a nurse or provider today Reason: Caller denied all higher acuity questions The caller accepted this outcome. PCP DR. Vazquez documented in this encounter Plan of Treatment Not on file documented as of this encounter Visit Diagnoses Not on filedocumented in this encounter Additional Health Concerns Assessment Noted Time PHQ-9 Depression Total Score: 0 01/04/20 24 1:57 PM EDT documented as of this encounter Care Teams Teaching Specialists Relationship Specialty Start Date End Date Jamison Wallis MD [address] [place] [id number] PCP - General Internal Medicine 01/18/24 documented as of this encounter
--- OUTSIDE RECORDS SUMMARY | 2025-08-16 16:08 | XMS_ITS | Encounter Summary ---
Author Organization [facility] Address [address] [place] [address] Phone Care Team Providers Care Bolt Machine Operator Name Role Phone Urbano Hyman Primary Care Provider [phone] Encounter Details Date Type Department Care Team (Late st Contact Info) Description 08/27/2015 Documentation [facility] Social History Tobacco Use Types Packs/Day Years Used Date Smoking Tobacco: Never Assessed Sex and Gender Information Value Date Recorded Sex Assigned at Not on file Legal Sex Male 4:27 PM EDT Gender Identity Not on file Sexual Orientation Not on file documented as of this encounter H&P Notes * DOCUMENTS, [facility] - 08/27/2015 10:01 AM EST HPP [address] [address] A Member of the [facility] H P [place] Name: STEPHANIE WAITE Admit Date: 08/27/15 - 1995 - 24yrs Discharge Date: 08/31/15 Location: [id number] - P509-1 Report #: [id number] DATE OF ADMISSION: 08/27/2015 PSYCHIATRIC HISTORY AND PHYSICAL ADMISSION NOTE DICTATION ENDS HERE STEVEN Phan Doc #:[id number] cc: Dictating Provider: MARIZOL ARAUJO [id number] S: documented in this encounter Plan of Treatment Not on file documented as of this encounter Visit Diagnoses Not on filedocumented in this encounter Care Teams Bolt Machine Operator Relationship Specialty Start Date End Date Urbano Hyman [address] [place] [id number] PCP - General 05/08/17 documented as of this encounter
--- OUTSIDE RECORDS SUMMARY | 2025-08-16 16:08 | XMS_ITS | Encounter Summary ---
Author Organization [employer] Address [address] [place] [address] Care Team Providers Care Awake Overnight Monitor Name Role Phone Jamison Wallis MD Primary Care Prov ider Reason for Visit * Reason Onset Date Comments Nurse Triage 10/19/2024 Encounter Details Date Type Department Care Team ([facility] st Contact Info) Description 10/19/2024 Telephone [facility] CHC MED & PEDS [address] [place], [place] [phone] Jamison Wallis MD [address] [place] [address] Nurse Triage Social History Tobacco Use Types [...] housing situation today? I have lurdes davalos 12/24/[address] you li ve. Do you have problems with any of the following? None of the above 12/24/2023 Food Insecurity Answer Date Recorded Within the past 12 months, y ou worried that your food would run out before you got money to buy more: Never True 12/24/2023 Within the past 12 months,th e food you bought just didn't last and you didn't have enough money to get more: Never True Transportation Answer Date Recorded In the past 12 months, has l ack of transportation kept you from medical appts, meetings, work or from getting things needed for daily living? No 12/24/2023 Utilities Answer Date Recorded In the past 12 months, has t he electric, gas, oil or water company threatened to shut off services in your home? No 12/24/2023 Depression Answer Date Recorded Patient Health Questionnaire-2 Score 0 01/04/2024 Sex and Gender Information Value Date Recorded Sex Assigned at Male 07/28/2022 10:14 AM EDT Legal Sex Male 10:14 AM EDT Gender Identity Male 07/28/2022 10:14 AM EDT Sexual Orientation Choose not to disclose 2021 10:14 AM EDT documented as of this encounter Miscellaneous Notes * Telephone Encounter - Felipa Nails RN - 10/19/2024 11:25 AM EST Triage call to MACO Barry for Pt Codey who is in [place] [facility] at this time. Pt is reporting headaches. Pt stopped drinking coffee on the 28 of September and has been having headaches ever since. Pt used to drink 4 + cups of coffee daily prior to the . Advised that headaches are a sign of caffeine withdraw and to increase liquids 6-8 glasses daily, warm decaf tea, water, juice. Pt also is olga fofana a referral for inventory technician. There was a referral for nutrition 07/2024 which has since closed. Pt is having poor appetite and not eating well. No available apts today in [facility] and Advised to call tomorrow morning when [facility] for possible apt. Jhonny agrees to do this and agrees with disposition. Protocol Used: Headache (Adult) Protocol-Based Disposition: See in Office or Video Visit within 3 Days Video visit not offered Positive Triage Question: * Mild - Moderate headache present > 3 days (72 hours) * All higher-acuity triage questions were negative Care Advice Discussed: * Reasons To Call Back - Severe headache lasts over 2 hours after pain medicine - Headache lasts over 72 hours - Stiff neck occurs (can't touch chin to chest) - You become worse * Telephone Encounter - Alejandra Mcconnell - 10/19/2024 10:19 AM EST Symptom: Headache Outcome: Schedule a same-day appointment or talk to a nurse or provider today Reason: Caller denied all higher acuity questions The caller accepted this outcome. documented in this encounter Plan of Treatment Not on file documented as of this encounter Visit Diagnoses Not on filedocumented in this encounter Additional Health Concerns Assessment Noted Time PHQ-9 Depression Total Score: 0 01/04/20 24 1:57 PM EDT documented as of this encounter Care Teams Awake Overnight Monitor Relationship Specialty Start Date End Date Jamison Wallis MD [address] [place] [address] PCP - General Internal Medicine 01/18/24 documented as of this encounter
--- OUTSIDE RECORDS SUMMARY | 2025-08-16 16:08 | XMS_ITS | Encounter Summary ---
Author Organization [facility] Address [address] [place] [address] Phone Care Team Providers Care Set Painter Name Role Phone Urbano Hyman Primary Care Provider [phone] Encounter Details Date Type Department Care Team (Late st Contact Info) Description 05/14/2017 Conversion Encounter [facility] [address] [place] [address] Social History Tobacco Use Types Packs/Day Years [...] on filedocumented in this encounter Care Teams Set Painter Relationship Specialty Start Date End Date Urbano Hyman [address] [place] [address] PCP - General 05/08/17 documented as of this encounter
== END 2025-08-16 11:03 | disposition home or self-care (01) ==
PROVIDERS: Emergency Provider Emergency Medicine; PCP Internal Medicine
DX: R21 Rash and other nonspecific skin eruption (principal)
CPT/HCPCS: 99283; J1200; J1308

== ENCOUNTER 2025-08-16 20:06 | Emergency (ER) | payer OTHER, SELFPAY ==
[2025-08-16 20:14] VITALS: BP 142/66; PULSE 116; RESP 20; TEMP 37.3; O2SAT 99; BMI 26.6
--- NOTE | 2025-08-16 22:46 | ED.SKABFB ---
HPI - Skin/Abscess/Foreign Bdy General Chief complaint: Skin/Abscess/Foreign Body Stated complaint: hives all over was seen yest & today Time Seen by Provider: 08/16/25 22:44 Related Data Home Medications ?Medication ?Instructions ?Recorded ?Confirmed benztropine 1 mg tablet 1 tab PO BID 06/04/22 07/30/22 Previous Rx's ?Medication ?Instructions ?Recorded bupropion HCl 300 mg 24 hr tablet, 300 mg PO DAILY #0 tabs 08/12/22 extended release clonazepam 0.5 mg tablet 0.5 mg PO BID PRN Anxiety #0 tabs 08/12/22 nicotine (polacrilex) 2 mg gum 4 mg buccal Q2H PRN Nicotine 08/12/22 Cravings #0 ea paliperidone palmitate 234 mg/1.5 234 mg (1.5 mL) IM Q30D #0 mL 08/12/22 mL intramuscular syringe (Invega Sustenna) topiramate 25 mg tablet 25 mg PO BID #0 tabs 08/12/22 trazodone 100 mg tablet 100 mg PO BEDTIME PRN Insomnia #0 08/12/22 tabs prednisone 20 mg tablet 40 mg (2 x 20 mg) PO DAILY 5 days 08/15/25 #10 tabs diphenhydramine HCl 25 mg tablet 25 mg PO Q6-8H PRN itching #20 tabs 08/16/25 (Benadryl Allergy) famotidine 20 mg tablet (Pepcid) 20 mg PO BID 5 days #10 tabs 08/16/25 Allergies Allergy/AdvReac Type Severity Reaction Status Date / Time cefaclor (From CECLOR) Allergy Unknown RASH Verified 08/16/25 20:16 Penicillins Allergy Unknown Verified 08/16/25 20:16 valbenazine (From Ingrezza) Allergy Rash Verified 08/16/25 20:16 [facility] Past Medical History Medical History Schizoaffective disorder, bipolar type Non compliance w medication regimen Schizophrenia Social History Social History Household Members: Other Household Members Other:: senior care Housing: Other Housing Other:: senior care Do you presently have visiting nurse or other home services: Yes (PT [facility]IVES IN [facility]) Alcohol intake: former Patient Tobacco Use Status: Former Tobacco user Tobacco use type: Smokeless Tobacco e-Cigarette/Vaping Use: Currently Using Second Hand Smoke Exposure: Yes Substance Use Type: Marijuana Advance Directives: No Advance Directives Information Provided: No service: No Current occupation: [employer] Sexual orientation: Straight/Heterosexual Physical Exam Vital Signs: Vital Signs: Last Vital Signs Temp 99.1 F 08/16/25 20:14 Pulse 116 H 08/16/25 20:14 Resp 20 08/16/25 20:14 BP 142/66 H 08/16/25 20:14 Pulse Ox 99 08/16/25 20:14 O2 Del Method Room Air 08/16/25 20:14 BMI result Body Mass Index 26.6 Medical Decision Making Medical Decision Making MDM Narrative: 11:11 PM 08/16/2025 (Lonny HARRIS): This provider just went to see the patient, was informed by RN that the patient had left without being seen. Per chart review this was the patient's 3rd visit for his rash which was diagnosed as a drug reaction from Ingrezza which was stopped. The patient returned with concern the rash was worse, however per triage note the patient's rash was unchanged from pictures from his earlier visit. Per RN patient left the ED with steady gait. Vital signs demonstrate mild tachycardia, otherwise normotensive without fever, tachypnea, or hypoxia. No indication for urgent callback. Discharge Plan Discharge Clinical Impression: Rash Patient Disposition: Left Without Being Seen Interventions: LWBS Worksheet Last Done: 08/16/25 23:11 Discharge Date/Time: 08/16/25 23:12
--- OUTSIDE RECORDS SUMMARY | 2025-08-17 05:21 | XMS_ITS | Encounter Summary ---
Author Organization [facility] Address [address] [place] [address] Phone Care Team Providers Care Wound Care Technician Name Role Phone Urbano Hyman Primary Care Provider [phone] Encounter Details Date Type Department Care Team (Late st Contact Info) Description 08/27/2015 Documentation [facility] Social History Tobacco Use Types Packs/Day [...] on filedocumented in this encounter Care Teams Wound Care Technician Relationship Specialty Start Date End Date Urbano Hyman [address] [place] [address] PCP - General 05/08/17 documented as of this encounter
--- OUTSIDE RECORDS SUMMARY | 2025-08-17 05:21 | XMS_ITS | Encounter Summary ---
Author Organization [employer] Address [address] [place] [address] Care Team Providers Care Chief Engineer Name Role Phone Jamison Wallis MD Primary Care Prov ider Reason for Visit * Reason Onset Date Comments Nurse Triage 10/19/2024 Encounter Details Date Type Department Care Team ([facility] st Contact Info) Description 10/19/2024 Telephone [facility] CHC MED & PEDS [address] [place], [place] [phone] Jamison Wallis MD [address] [place] [address] Nurse Triage Social History Tobacco Use Types [...] for Pt Codey who is in a detention at this time. Pt is reporting headaches. [...] also is olga fofana a referral for instrument installer. There was a referral for nutrition 07/2024 which has since closed. Pt is having poor appetite and not eating well. No available apts today in [facility] and Advised to call tomorrow morning when [facility] [place] [...] documented as of this encounter Care Teams Chief Engineer Relationship Specialty Start Date End Date Jamison Wallis MD [address] [place] [address] PCP - General Internal Medicine 01/18/24 documented as of this encounter
--- OUTSIDE RECORDS SUMMARY | 2025-08-17 05:21 | XMS_ITS | Clinical Summary ---
Author Organization [employer] Address [address] [facility] 7t [place] [address] Care Team Providers Care Body Technician Name Role Phone Jamison Wallis MD Primary [...] eating. Wants to be seen by a tufting machine fixer to discuss healthy diet, will place referral [...] Type Department Care Team Description 08/15/2025 Telephone [facility] MEDIC[facility] [address] [place] [address] Jamison Wallis MD Nurse Triage [...] HEPATITIS C ANTIBODY NON-REACT ABHISHEK NON-REACT ABHISHEK [facility] INDEX 0.01 <1.00 [facility] Comment: HCV antibody was non-reactive. There is no laboratory evidence of HCV infection. In most cases, no further action is required. However, if recent HCV exposure is suspected, a test for HCV RNA (test code 01060) is suggested. For additional information please refer to http://education.[employer]ortonworks/faq/QIV78d8 (This link is being provided for informational/ educational purposes only.) 12/05/2021 11:4 5 AM EST us Aida Lemos MD HISTORICAL/NON ORDERA BLE LABS Final Result [facility] [address] * HIV 1/2 ANTIGEN/ANTIBODY,FOURTH GENERATION W/RFL (12/05/2021 11:45 AM EST) HIV-1/2 ANTIGEN AND ANTIBODIES, 4TH GENERATION W/ REFLEX NON-REACT ABHISHEK NON-REACT ABHISHEK [facility] Comment: HIV-1 antigen and HIV-1/HIV-2 [...] purpose. For additional information please refer to http://education.[employer]/faq/DSA176 (This link is being provided for informational/ educational purposes only.) The performance of this assay has not been clinically validated in patients less than 2 years old. 12/05/2021 11:4 5 AM EST Aida Lemos MD LAB BLOOD ORDERABLES Final Result Performing Organization Address [facility] de Phone Number [facility] [address] from Last 3 Months or Most Recently Relevant to Health Maintenance Insurance [facility] ONE CARE < [address]EV[address] [place] [id number] Care Teams Body Technician Relationship Specialty Start Date End Date Jamison Wallis MD [address] [place] [address] PCP - General Internal Medicine 01/18/24
--- OUTSIDE RECORDS SUMMARY | 2025-08-17 05:21 | XMS_ITS | Encounter Summary ---
Author Organization [facility] Address [address] [place] [address] Phone Care Team Providers Care Sales Administration Manager Name Role Phone Urbano Hyman Primary Care Provider [phone] Encounter Details Date Type Department Care Team (Late st Contact Info) Description 08/27/2015 Documentation [facility] Social History Tobacco Use Types Packs/Day Years Used Date Smoking Tobacco: Never Assessed Sex and Gender Information Value Date Recorded Sex Assigned at Not on file Legal Sex Male 4:27 PM EDT Gender Identity Not on file Sexual Orientation Not on file documented as of this encounter H&P Notes * DOCUMENTS, [facility] - 08/27/2015 10:01 AM EST HPP [address] [address] A Member of the [facility] [place] Name: STEPHANIE WAITE Admit Date: 08/27/15 - 1995 - 24yrs Discharge Date: 08/31/15 Location: [id number] - P509-1 Report #: [id number] DATE OF ADMISSION: 08/27/2015 PSYCHIATRIC HISTORY AND PHYSICAL ADMISSION NOTE DICTATION ENDS HERE STEVEN Phan Doc #:[id number] cc: Dictating Provider: MARIZOL ARAUJO [phone] S: documented in this encounter Plan of Treatment Not on file documented as of this encounter Visit Diagnoses Not on filedocumented in this encounter Care Teams Sales Administration Manager Relationship Specialty Start Date End Date Urbano Hyman [address] [place] [address] PCP - General 05/08/17 documented as of this encounter
--- OUTSIDE RECORDS SUMMARY | 2025-08-17 05:21 | XMS_ITS | Encounter Summary ---
Author Organization [facility] Address [address] [place] [address] Phone Care Team Providers Care Manager Of Maintenance Name Role Phone Urbano Hyman Primary Care Provider [phone] Encounter Details Date Type Department Care Team (Late st Contact Info) Description 05/14/2017 Conversion Encounter [facility] [address] [place] [address] Social History Tobacco Use Types Packs/Day Years [...] on filedocumented in this encounter Care Teams Manager Of Maintenance Relationship Specialty Start Date End Date Urbano Hyman [address] [place] [address] PCP - General 05/08/17 documented as of this encounter
--- OUTSIDE RECORDS SUMMARY | 2025-08-17 05:21 | XMS_ITS | Encounter Summary ---
Author Organization [facility] Address [address] [place] [address] Phone Care Team Providers Care Engineer Technical Staff Name Role Phone Urbano Hyman Primary Care Provider [phone] Encounter Details Date Type Department Care Team (Late st Contact Info) Description 08/27/2015 Documentation [facility] Social History Tobacco Use Types Packs/Day Years Used Date Smoking Tobacco: Never Assessed Sex and Gender Information Value Date Recorded Sex Assigned at Not on file Legal Sex Male 4:27 PM EDT Gender Identity Not on file Sexual Orientation Not on file documented as of this encounter H&P Notes * DOCUMENTS, [facility] - 08/27/2015 10:01 AM EST HPP [address] [address] A Member of the [facility] [place] Name: STEPHANIE WAITE Admit Date: 08/27/15 - 1995 - 24yrs Discharge Date: 08/31/15 Location: [id number] - P509-1 Report #: [id number] DATE OF ADMISSION: 08/27/2015 The Valdez warning was given to the patient who appeared to understand the warning. CHIEF COMPLAINT: I was not feeling too good. SOURCE OF INFORMATION: The following information was obtained from the patient, crisis evaluation, and previous records. HISTORY OF PRESENT ILLNESS: This is a 20-year-old Haitian-speaking male who presented to the [facility] Emergency Room due to suicidal ideation and a change in behavior according to his mother. The patient reports that he felt different. He was unable to specify why he felt different. He stated that, Last time I came to [place] it helped me, so I wanted to [...] this statement. He did not inform this designer writer of a suicide plan when asked. The [...] year, but was unwilling to tell this designer writer what kinds of visual hallucinations he was experiencing. DATA: Potassium 3.4 alcohol 11. Urine toxicology unable to be obtained in the emergency room due to patient refusing. PAST PSYCHIATRIC HISTORY: The patient denies any psychiatric history or providers. He had been admitted to [facility] in November of 2014 and [facility] for a matter of hours before eloping [...] SOCIAL HISTORY: The patient currently lives in [place] with his mom and 4 siblings. He is one of seven children. He completed his GED and according to previous records attended some college. He is currently unemployed. He reports that he had been working at [employer], but stopped a while ago. According to the crisis evaluation, he stopped working a few weeks ago and previous hospital records indicate that he quit his job at [employer] in November of 2014. He denied any [...] MENTAL STATUS EXAMINATION: This is a 20-year-old Haitian-speaking male who appears his stated age and is dressed in hospital attire. Grooming is unremarkable. The patient's eye contact was poor as he appeared sedated to this designer writer. Speech was within normal limits for rate and tone. He described his mood as anxious to go to sleep. His affect appeared guarded as he was unwilling to discuss details of his presentation or concerns to this designer writer. He was also sedated. Thoughts were linear and organized, but there appeared to be some level of anxiety or paranoia to this designer writer. He asked if the medication he was [...] some medication. FORMULATION: This is a 20-year-old Haitian-speaking male who presented to the [facility] Emergency Room secondary to suicidal [...] sedated during this interview and asked this designer writer if he could go lie down. He had previously been admitted in 11/2014 and did not want to take medications. During this interview, he specifically asked to be started on Seroquel. He denied suicidal and homicidal ideation and contracted for safety in the unit. He will be admitted to [address] [place] [address] for safety, stabilization, and medication evaluation. DIAGNOSES: AXIS I: Unspecified psychotic disorder, rule out paranoid schizophrenia, cannabis abuse per patient report. AXIS II: Deferred. AXIS III: None. Mullins IV: Lack of day structure, lack of providers, lack of coping skills. AXIS V: Current functioning 33, past year global assessment of functioning 50 at time of discharge on 12/21/2014. INITIAL PLAN: 1. Admit to [address] [place] [address], 15-minute checks, conditional voluntary accepted. 2. Individual/group, add milieu therapy as tolerated. 3. Medication management per attending. 4. Seroquel 50 mg q.6 hours p.r.n. anxiety, agitation, psychosis. 5. Seroquel 100 mg p.o. at bedtime. STEVEN Brownlee Doc #:[id number] cc: Dictating Provider: MARIZOL ARAUJO MOCEM/ ETS <Electronically signed by STEVEN BROWNLEE> [id number] S: 08/28/15 1415 documented in this encounter Plan of Treatment Not on file documented as of this encounter Visit Diagnoses Not on filedocumented in this encounter Care Teams Engineer Technical Staff Relationship Specialty Start Date End Date Urbano Hyman [address] [place] [address] PCP - General 05/08/17 documented as of this encounter
--- OUTSIDE RECORDS SUMMARY | 2025-08-17 05:21 | XMS_ITS | Clinical Summary ---
Author Organization [facility] Address [address] [place] [address] Phone Care Team Providers Care Ada Accommodation Consultant Name Role Phone Urbano Hyman Primary Care Provider [phone] Immunizations Immunization Administration Dates Next Due DTP [...] age to complete this topic Care Teams Ada Accommodation Consultant Relationship Specialty Start Date End Date Urbano Hyman [address] [place] [address] PCP - General 05/08/17
--- OUTSIDE RECORDS SUMMARY | 2025-08-17 05:21 | XMS_ITS | Encounter Summary ---
Author Organization [employer] Address 75 [facility] 7t [place] [address] Care Team Providers Care Radius Corner Machine Operator Name Role Phone Jamison Wallis MD Primary Care Prov ider Reason for Visit * Reason Onset Date Comments Nurse Triage 08/15/2025 Encounter Details Date Type Department Care Team ([facility] st Contact Info) Description 08/15/2025 Telephone [facility] [address] [place] [address] Jamison Wallis MD [address] [place] [address] Nurse Triage Social History Tobacco Use Types [...] documented as of this encounter Care Teams Radius Corner Machine Operator Relationship Specialty Start Date End Date Jamison Wallis MD [address] [place] [address] PCP - General Internal Medicine 01/18/24 documented as of this encounter
== END 2025-08-16 23:12 | disposition left against medical advice (07) ==
PROVIDERS: Emergency Provider Emergency Medicine; PCP Internal Medicine
DX: R21 Rash and other nonspecific skin eruption (principal); L50.0 Allergic urticaria; Z53.21 Procedure and treatment not carried out due to patient leaving prior to being seen by health care provider
CPT/HCPCS: 96374; 96375; 99281; 99283; J1200; J1308